=== PATIENT | male | born 1955 | race Caucasian/White ===

== ENCOUNTER → 2024-11-28 | Outpatient (CLI) | payer MEDICARE, BC, SELFPAY ==
[2024-11-28 14:29] LABS: Basophils # (Auto) 0.1 Thou/mm3 (0.0-0.2); Basophils % (Auto) 1 % (0-2.5); Eosinophils # (Auto) 0.5 Thou/mm3 (0.0-0.5); Eosinophils % (Auto) 5 % (0-10); Hematocrit 43.8 % (41.0-53.0); Hemoglobin 15.3 g/dL (13.5-16.0); Immature Granulocytes % (Auto) 0 % (0-0); Immature Granulocytes Auto 0.02 Thou/mm3 (0.00-0.00); Lymphocytes # (Auto) 1.5 Thou/mm3 (1.0-4.8); Lymphocytes % (Auto) 14 % (10-50); Mean Corpuscular HGB Conc 34.9 g/dl (31.0-37.0); Mean Corpuscular Hemoglobin 30.4 pg (25.0-35.0); Mean Corpuscular Volume 87 fL (80-100); Monocytes # (Auto) 0.8 Thou/mm3 (0.0-0.8); Monocytes % (Auto) 8 % (0-12); Neutrophils # (Auto) 7.6 Thou/mm3 (1.8-7.7); Neutrophils % (Auto) 73 % (37-80); Nucleated Red Blood Cell % 0 /100 WBC (0); Platelet Count 215 Thou/mm3 (140-440); RDW Standard Deviation 39.1 fL (35.1-43.9); Red Blood Count 5.04 Miln/mm3 (4.50-5.90); White Blood Count 10.5 Thou/mm3 (3.8-10.6)
[2024-11-28 14:43] LABS: Sed Rate (ESR) 4 mm/hr (0-20)
[2024-11-28 15:11] LABS: Alanine Aminotransferase 18 U/L (10-49); Albumin, Serum 4.2 gm/dL (3.4-4.8); Alkaline Phosphatase 109 U/L (46-116); Anion Gap 7 (7-16); Aspartate Amino Transferase 17 U/L (0-34); BUN/Creatinine Ratio 14 Ratio (12-20); Bilirubin,Direct 0.4 mg/dL (0.0-0.3); Bilirubin,Total 1.5 mg/dL (0.3-1.2); Blood Urea Nitrogen 18 mg/dL (9-23); C-Reactive Protein 3.1 mg/dL (0.0-0.9); Calcium 9.5 mg/dL (8.3-10.6); Carbon Dioxide 30.2 mMol/L (20.0-31.0); Chloride 106 mMol/L (98-107); Creatinine (Component) 1.3 mg/dL (0.6-1.3); Glucose 80 mg/dL (74-106); Osmolality,Calculated 285 (275-295); Potassium 4.6 mMol/L (3.4-5.1); Sodium 143 mMol/L (136-145); Total Protein 6.8 gm/dL (5.7-8.2); eGFR 59 See Note
[2024-11-29 14:00] LABS: Cocci Serology, IgM Negative (Negative)
[2024-11-30 14:35] LABS: Cocci Serology, IgG Positive (Negative)
[2024-11-30 14:36] LABS: Cocid Sro, CF/ID (UCD) NO CHG* See Sep Rpt
== END | disposition home or self-care (01) ==
LOC: COPL 13:56
PROVIDERS: PCP Family Medicine; Referring Provider Internal Medicine; Visit Provider Internal Medicine
DX: B38.2 Pulmonary coccidioidomycosis, unspecified (principal); R91.1 Solitary pulmonary nodule
CPT/HCPCS: 36415; 80048; 80076; 85025; 85652; 86140; 86331; 86635

== ENCOUNTER 2024-12-09 07:52 | Emergency (ER) | payer MEDICARE, BC, SELFPAY ==
[2024-12-09 07:54] VITALS: PULSE 98
--- NOTE | 2024-12-09 07:54 | EKG_ITS ---
[facility] Test Date: 2024-12-09 Pat Name: LYNDA CHAMORRO Department: Room: - Gender: Male Addiction Therapist: : [id number] Requested By: Carissa Rodriguez Order Number: [id number] Reading MD: Carissa Rodriguez Measurements Intervals [place] Rate: 90 P: 66 ME: 140 QRS: 33 QRSD: 94 T: 62 QT: 337 QTc: 413 Interpretive Statements SINUS RHYTHM Compared to ECG 11/30/2023 16:37:36 No significant changes /store/S0/[id number]/[id number].pdf
--- NOTE | 2024-12-09 07:54 | XR_ITS ---
Examination: AP chest single view TECHNIQUE: Upright chest single view Exam date and time: December 09, 2024 0919 hours Comparison November 30, 2023 INDICATIONS: Shortness of breath chest pain today FINDINGS: Normal heart size Accentuation basilar bronchovascular markings No current lobar pneumonia or pulmonary edema IMPRESSION: Basilar bronchitis pattern
--- NOTE | 2024-12-09 08:09 | EDNOTE_ITS ---
ED General RME/HPI General Chief complaint: Shortness of Breath/Dyspnea Stated complaint: SHORTHNESS OF BREATH Time Seen by Provider: 12/09/24 07:54 Arrival date/time: 12/09/24 07:52 RME / HPI RME / HPI narrative: DR. JEAN MAIN ED EVALUATION: 69 year old male presents to the Emergency Department with complaint of shortness of breath onset today. Symptoms are mild to moderate. PMHx: He had tonsillectomy during childhood. He had right knee surgery in the past. 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 Allergies: CODEINE Family history: His grandfather had colon cancer. Related Data Home Medications ?Medication ?Instructions ?Recorded ?Confirmed amlodipine 10 mg tablet 5 mg PO DAILY 11/28/23 11/28/23 losartan 50 mg tablet 50 mg PO DAILY 11/28/23 11/28/23 Previous Rx's ?Medication ?Instructions ?Recorded fluconazole 200 mg tablet 400 mg (2 x 200 mg) PO QDAY 1 12/02/23 month #60 tabs albuterol sulfate 90 mcg/actuation 1 inh inhalation QID PRN shortness 12/09/24 aerosol inhaler of breath or wheezing #8.5 grams Allergies Allergy/AdvReac Type Severity Reaction Status Date / Time codeine Allergy Severe THROAT Verified 11/28/23 20:17 SUKH BENAVIDES Review of Systems Review of Systems Systems Reviewed: All systems reviewed, normal except as documented Narrative Review of Systems: GEN: No fever, no chills, no weight loss EYES: No discharge, no visual changes, no pain HEENT: No ear pain, no congestion, no sore throat PULM: + shortness of breath, no cough, no congestion CV: No chest pain, no dyspnea on exertion, no palpitations GI: No nausea, no vomiting, no diarrhea, no pain, no constipation : No frequency, no urgency and no dysuria MUSC/SKEL: No joint pain, no back pain SKIN: No rash PSYCH: No hallucinations, no depression HEME/LYMPH: No easy bleeding or bruising tendencies NEURO: No weakness, no headache Past Medical History Past Medical History NEUROLOGIC: Negative Neurological Disorders or Seizures CARDIAC: Positive Hypertension; Negative Cardiac Disorders, Hypercholesterolemia or Congestive Heart Failure RESPIRATORY: Negative Chronic Obstructive Pulmonary Disease (COPD) or Asthma GASTROINTESTINAL: Positive Gastrointestinal Disorders (dysphagia); Negative Hepatitis or Colorectal Cancer GENITOURINARY: Positive Genitourinary Disorders and Kidney Stones (x1- stent placed for 30 days.); Negative Renal Disease or Prostate Cancer REPRODUCTIVE: Negative Breast Cancer or Testicular Cancer MUSCULOSKELETAL: Negative Musculoskeletal Disorders, Bone Cancer, Arthritis, Gout or Fractures ENT: Negative Cataracts ENDOCRINE: Negative Endocrine Disorders, Diabetes Mellitus Type 1 or Diabetes Mellitus Type 2 HEMATOLOGIC: Negative Blood Disorders or Sickle Cell Disease PSYCHO/SOCIAL: Negative Anxiety OTHER HISTORY: Positive Chicken Pox; Negative Autoimmune Disease, Falls, Blood Transfusions, Blood Transfusion Reaction, Anesthesia Reactions, Organ Transplant, MRSA, VRSA, Vancomycin- Resistant Enterococci, Clostridium Difficile, Breast Cancer, Cervical Cancer, Colorectal Cancer, Lung Cancer, Ovarian Cancer, Prostate Cancer or Testicular Cancer Family History FAMILY HISTORY: Negative Family Psychiatric Problems, Family Respiratory Disorders, Family Cardiac Disorders, Family Gastrointestinal Problems, Family Cancer, Family Surgery or Family Anesthesia Reaction Surgical History SURGICAL: Positive Tonsillectomy; Negative Cardiac Surgery, Open Heart Surgery, Coronary Artery Bypass Graft, Valve Replacement, Vascular Surgery, Coronary Stent, Cardiac Catheterization, Pacemaker, Angiogram, Auto Implanted Cardiovert Defib, Carotid Endarterectomy, Endocrine Surgery, Ear Surgery, Tympanostomy Tube, Eye Surgery, Nose Surgery, Oral Surgery, Abdominal Surgery, Nephrectomy, Joint Replacement, Neurologic Surgery, Mastectomy, Vasectomy or Organ Transplant Social History SMOKING STATUS: Never smoker SECOND HAND EXPOSURE: No ED Exam Narrative Physical exam: GENERAL APPEARANCE: alert and oriented x 4, well-developed, well-nourished, no acute distress VITALS: All vitals were reviewed and the pulse ox is 96% on room air, which is normal according to my interpretation. HEENT: Normocephalic, atraumatic; pupils equal, round, reactive to light; EOMI; mucous membranes pink, moist; oropharynx clear NECK: Supple LUNGS: CTABL; no wheezes, no rales, no rhonchi HEART: Regular rate, regular rhythm; normal S1, S2; no murmurs ABDOMEN: non distended; normal BS; soft, no tenderness, no guarding, no rebound; no masses, no organomegaly, no hernia BACK: no CVA tenderness EXTREMITIES: atraumatic; no edema NEUROLOGIC: awake; alert and oriented x4; cranial nerves II-XII grossly intact; no focal sensory or motor deficits PSYCHIATRIC: appropriate mood and affect SKIN: warm, dry, normal color; no rashes Course Quality Measures none Orders Category Date Time Status [employer] NOW Care 12/09/24 07:54 Completed EKG (ED ONLY) *Do not use* NOW Care 12/09/24 07:54 Completed EKG (ED Only) Stat Exams 12/09/24 07:54 Draft XR chest 1V portable Stat Exams 12/09/24 07:54 Completed B-Type Natriuretic Peptide Stat Lab 12/09/24 08:20 Completed Blood Culture (Lab) Stat Lab 12/09/24 08:20 Received CBC Stat Lab 12/09/24 08:20 Completed Comprehensive Metabolic Panel Stat Lab 12/09/24 08:20 Completed Lactate (Lactic Acid) Stat Lab 12/09/24 08:20 Completed Lipase Stat Lab 12/09/24 08:20 Completed Magnesium Stat Lab 12/09/24 08:20 Completed Partial Thromboplastin Time Stat Lab 12/09/24 08:20 Completed Procalcitonin Stat Lab 12/09/24 08:20 Completed Prothrombin Time with INR Stat Lab 12/09/24 08:20 Completed Troponin I Stat Lab 12/09/24 08:20 Completed Urinalysis Stat Lab 12/09/24 10:47 Completed Urine Culture Stat Lab 12/09/24 10:47 Received ALBUTEROL RT 0.5ml [Proventil Rt 0.5ml] Med 12/09/24 08:07 Discontinued 10 mg INH X1 ONE Albuterol/Ipratr Rt Anastasiya [Duoneb Rt Anastasiya] Med 12/09/24 11:43 Discontinued 3 ml INH X1 ONE Ipratropium [place] Rt Anastasiya [Atrovent Rt Anastasiya] Med 12/09/24 08:07 Discontinued 0.5 mg INH X1 ONE MethylPREDNISolone.* [SoluMEDROL Inj] Med 12/09/24 08:07 Discontinued 125 mg IVP X1 ONE Sodium Chloride Rt Anastasiya 0.9% [NS Rt Anastasiya 0.9%] Med 12/09/24 08:07 Discontinued 3 ml INH PRN PRN Sodium Chloride Rt Anastasiya 0.9% [NS Rt Anastasiya 0.9%] Med 12/09/24 08:07 Discontinued 3 ml INH PRN PRN Vital Signs Vital signs: Vital Signs Pulse Rate 98 12/09/24 07:54 [facility] Patient data External records reviewed:: EMS form Clinical information provided by:: patient and EMS Social determinants that could affect healthcare access:: none Patient has the following chronic illnesses:: PMHx: He had tonsillectomy during childhood. He had right knee surgery in the past. Allergies: CODEINE Family history: His grandfather had colon cancer. How is presenting disease/condition affected by chronic disease/condition?: u neffected by Evaluation data The following diagnostics were reviewed and interpreted by me:: lab results, radiology exam(s) and EKG tracing(s) (EKG at 0849 hours: sinus rhythm, rate 90, no STEMI,) Lab and/or radiology exams considered but not ordered:: none Interpretation Summary: Procedure(s): XR chest 1V portable Accession Number(s): [id number] cc: Hoang Keller MD; Carissa Jean MD; Jarrell Smith MD~ Examination: AP chest single view TECHNIQUE: Upright chest single view Exam date and time: December 09, 2024 0919 hours Comparison November 30, 2023 INDICATIONS: Shortness of breath chest pain today FINDINGS: Normal heart size Accentuation basilar bronchovascular markings No current lobar pneumonia or pulmonary edema IMPRESSION: Basilar bronchitis pattern Dictated By: Hoang Keller MD Medications Medications considered but not ordered:: none Medication administrations:: Medication Administration History Discontinued Medications Albuterol (Albuterol Rt 2.5 Mg/0.5 Ml Nebu) 10 mg INH X1 ONE Stop: 12/09/24 08:08 Last Admin: 12/09/24 08:18 Dose: 10 mg Documented By: JESSY Albuterol/Ipratropium (Albuterol/Ipratropium (Duoneb) Rt Anastasiya 3 Ml Nebu) 3 ml INH X1 ONE Stop: 12/09/24 11:44 Last Admin: 12/09/24 11:56 Dose: 3 ml Documented By: JESSY Ipratropium [place] (Ipratropium Rt 0.5 Mg/ 2.5 Ml Nebu) 0.5 mg INH X1 ONE Stop: 12/09/24 08:08 Last Admin: 12/09/24 08:18 Dose: 0.5 mg Documented By: JESSY Methylprednisolone Sodium Succinate (Methylprednisolone Sod Succ 62.5 Mg/Ml 2ml Vial) 125 mg IVP X1 ONE Stop: 12/09/24 08:08 Last Admin: 12/09/24 08:26 Dose: 125 mg Documented By: NATALIYA Sodium Chloride (Sodium Chloride Rt Anastasiya 0.9% 3 Ml Nebu) 3 ml INH PRN PRN PRN Reason: SOLN Stop: 01/08/25 08:06 Last Admin: 12/09/24 08:18 Dose: 3 ml Documented By: JESSY Sodium Chloride (Sodium Chloride Rt Anastasiya 0.9% 3 Ml Nebu) 3 ml INH PRN PRN PRN Reason: SOLN Stop: 01/08/25 08:06 see above Consultations Consultation(s) initiated? (list below): No Diagnosis Differential Diagnosis ED Complaint MDM: pneumonia, CHF, PE Most likely diagnosis given after review of the tests above:: Bronchitis Shortness of breath Wheezes Admission Indicated Admission indicated?: not indicated Explain why admission is indicated or not indicated:: Patient has no emergent abnormalities on his studies and can be managed on an outpatient basis. Admission Request Was there a request for admission?: No Disposition Plan Disposition Plan: Discharge Discharge Attestation Discharge Attestation: The patient and all family members were given an opportunity to ask questions and understood the discharge instructions. Discharge instructions specifically effects, indications for sooner follow up or return to the emergency department, and the expected course of current diagnosis. Patient condition: Stable Medical Decision Making Differential Diagnosis Differential Diagnosis: pneumonia, CHF, PE Lab Data 12/09/24 08:20 12/09/24 08:20 Labs: Lab Results 12/09/24 12/09/24 Range/Units 08:20 10:47 WBC 13.8 H (3.8-10.6) Thou/mm3 RBC 6.05 H (4.50-5.90) Miln/mm3 Hgb 18.2 H* (13.5-16.0) g/dL Hct 52.3 (41.0-53.0) % MCV 86 (80-100) fL MCH 30.1 (25.0-35.0) pg MCHC 34.8 (31.0-37.0) g/dl RDW Std Deviation 38.0 (35.1-43.9) fL Plt Count 259 D (140-440) Thou/mm3 Neut % (Auto) 78 (37-80) % Lymph % (Auto) 10 (10-50) % [place] % (Auto) 6 (0-12) % Eos % (Auto) 5 (0-10) % Baso % (Auto) 1 (0-2.5) % Neut # (Auto) 10.8 H (1.8-7.7) Thou/mm3 Lymph # (Auto) 1.3 (1.0-4.8) Thou/mm3 [place] # (Auto) 0.8 (0.0-0.8) Thou/mm3 Eos # (Auto) 0.7 H (0.0-0.5) Thou/mm3 Baso # (Auto) 0.1 (0.0-0.2) Thou/mm3 Immature Gran # (Auto) 0.07 H (0.00-0.00) Thou/mm3 Absolute Nucleated RBC 0.00 (0.00-0.00) Thou/mm3 Immature Gran % 1 H (0-0) % Nucleated RBC % 0 (0) /100 WBC PT 10.9 (9.0-12.2) Seconds INR 1.0 (0.9-1.3) APTT 27.6 (22.0-36.0) Seconds Sodium 140 (136-145) mMol/L Potassium 4.0 (3.4-5.1) mMol/L Chloride 104 (98-107) mMol/L Carbon Dioxide 28.9 (20.0-31.0) mMol/L Anion Gap 7 (7-16) BUN 15 (9-23) mg/dL Creatinine 1.2 (0.6-1.3) mg/dL Estim Creat Clear Calc 58.8 L (>60) mL/min eGFR > 60 (60 - ) See Note BUN/Creatinine Ratio 13 (12-20) Ratio Glucose 96 (74-106) mg/dL Calculated Osmolality 280 (275-295) Lactic Acid 1.5 (0.4-2.0) mMol/L Calcium 9.8 (8.3-10.6) mg/dL Corrected Calcium 9.8 (8.5-10.1) mg/dL Magnesium 1.9 (1.6-2.6) mg/dL Total Bilirubin 2.0 H (0.3-1.2) mg/dL AST 13 (0-34) U/L ALT 12 (10-49) U/L Alkaline Phosphatase 110 (46-116) U/L Troponin I 0.034 (0.0-0.045) ng/mL B-Natriuretic Peptide 29 (0-100) pg/mL Total Protein 8.2 (5.7-8.2) gm/dL Albumin 4.9 H (3.4-4.8) gm/dL Globulin 3.3 (2.3-3.5) gm/dL Albumin/Globulin Ratio 1.5 (1.2-2.2) Lipase 44 (12-53) U/L Procalcitonin 0.10 (0.0-0.49) ng/ml Ur Collection Type Clean Catch Urine Color Yellow (Lt Yel-Yel) Urine Clarity Clear (Clear/Hazy) Urine pH 6.0 (5.0-7.0) Ur Specific [place] 1.028 (1.001-1.035) Urine Protein 2+ A (Neg - Trace) Urine Glucose (UA) Negative (Negative) Urine Ketones 2+ A (Negative) Urine Blood Negative (Negative) Urine Nitrite Negative (Negative) Urine Bilirubin Negative (Negative) Urine Urobilinogen (Auto) Negative (0.0-1.0) mg/dL Ur Leukocyte Esterase Negative (Negative) Urine RBC 9 H (0-3) /hpf Urine WBC 7 H (0-5) /hpf Ur Squamous Epith Cells < 1 (0-5) /hpf Urine Bacteria None (None) Discharge Plan Plan Patient Disposition: HOME (Self Care) Prescriptions/Referrals Prescriptions/Med Rec: New albuterol sulfate 90 mcg/actuation HFA aerosol inhaler 1 inh inhalation QID PRN (Reason: shortness of breath or wheezing) Qty: 8.5 0RF No Action losartan 50 mg tablet 50 mg PO DAILY Patient Comments: TAKE 1 TABLET BY MOUTH EVERY DAY amlodipine 10 mg tablet 5 mg PO DAILY Patient Comments: TAKE 1 TABLET BY MOUTH EVERY DAY fluconazole 200 mg tablet 400 mg PO QDAY 30 Days Qty: 60 2RF Referrals: Jarrell Smith MD [Primary Care Provider] - In 1 week Problem List Clinical Impression: Bronchitis, SOB (shortness of breath), Wheezes Patient/Caregiver Discharge Instructions Education Materials: ED Bronchitis with Wheezing (Adult) Print Language: Chinese Stand Alone Forms: Rashmi Award Info., Patient Portal Info Letter
[2024-12-09 08:10] VITALS: BP 173/91; PULSE 70; PULSE 74; RESP 18; RESP 23; TEMP 37; O2SAT 95; O2SAT 97; BMI 22.9
[2024-12-09 08:18] VITALS: PULSE 79
[2024-12-09] MEDS: SODIUM CHLORIDE RT SOL 0.9% 3 ML NEBU INH (08:18)
[2024-12-09] MEDS: IPRATROPIUM RT 0.5 MG/ 2.5 ML NEBU INH (08:18)
[2024-12-09] MEDS: ALBUTEROL RT 2.5 MG/0.5 ML NEBU 10 MG INH (08:18)
[2024-12-09 08:19] VITALS: PULSE 91; RESP 15; O2SAT 97
[2024-12-09] MEDS: MethylPREDNISolone SOD SUCC 62.5 MG/ML 2ML VIAL 125 MG IVP (08:26)
[2024-12-09 08:45] LABS: Lactate (Lactic Acid) 1.5 mMol/L (0.4-2.0)
[2024-12-09 08:47] LABS: Basophils # (Auto) 0.1 Thou/mm3 (0.0-0.2); Basophils % (Auto) 1 % (0-2.5); Eosinophils # (Auto) 0.7 Thou/mm3 (0.0-0.5); Eosinophils % (Auto) 5 % (0-10); Hematocrit 52.3 % (41.0-53.0); Hemoglobin 18.2 g/dL (13.5-16.0); Immature Granulocytes % (Auto) 1 % (0-0); Immature Granulocytes Auto 0.07 Thou/mm3 (0.00-0.00); Lymphocytes # (Auto) 1.3 Thou/mm3 (1.0-4.8); Lymphocytes % (Auto) 10 % (10-50); Mean Corpuscular HGB Conc 34.8 g/dl (31.0-37.0); Mean Corpuscular Hemoglobin 30.1 pg (25.0-35.0); Mean Corpuscular Volume 86 fL (80-100); Monocytes # (Auto) 0.8 Thou/mm3 (0.0-0.8); Monocytes % (Auto) 6 % (0-12); Neutrophils # (Auto) 10.8 Thou/mm3 (1.8-7.7); Neutrophils % (Auto) 78 % (37-80); Nucleated Red Blood Cell % 0 /100 WBC (0); Platelet Count 259 Thou/mm3 (140-440); Red Blood Count 6.05 Miln/mm3 (4.50-5.90); White Blood Count 13.8 Thou/mm3 (3.8-10.6)
[2024-12-09 09:10] LABS: B-Type Natriuretic Peptide 29 pg/mL (0-100)
[2024-12-09 09:26] LABS: Alanine Aminotransferase 12 U/L (10-49); Albumin, Serum 4.9 gm/dL (3.4-4.8); Albumin/Globulin Ratio 1.5 (1.2-2.2); Alkaline Phosphatase 110 U/L (46-116); Anion Gap 7 (7-16); Aspartate Amino Transferase 13 U/L (0-34); BUN/Creatinine Ratio 13 Ratio (12-20); Blood Urea Nitrogen 15 mg/dL (9-23); Calcium 9.8 mg/dL (8.3-10.6); Calcium (Corrected) 9.8 mg/dL (8.5-10.1); Carbon Dioxide 28.9 mMol/L (20.0-31.0); Chloride 104 mMol/L (98-107); Creatinine (Component) 1.2 mg/dL (0.6-1.3); Estimated Creatinine Clearance 58.8 mL/min (>60); Globulin 3.3 gm/dL (2.3-3.5); Glucose 96 mg/dL (74-106); Lipase 44 U/L (12-53); Magnesium 1.9 mg/dL (1.6-2.6); Osmolality,Calculated 280 (275-295); Sodium 140 mMol/L (136-145); Total Protein 8.2 gm/dL (5.7-8.2); Troponin I 0.034 ng/mL (0.0-0.045); eGFR > 60 See Note
[2024-12-09 10:57] LABS: Partial Thromboplastin Time 27.6 Seconds (22.0-36.0); Prothrombin Time 10.9 Seconds (9.0-12.2)
[2024-12-09 10:58] LABS: Collection Type, Urine Clean Catch
[2024-12-09 11:03] VITALS: BP 141/79; PULSE 85; RESP 22; TEMP 36.8; O2SAT 91
[2024-12-09 11:21] LABS: Bilirubin,Urine Negative (Negative); Blood,Urine Negative (Negative); Clarity,Urine Clear (Clear/Hazy); Color,Urine Yellow (Lt Yel-Yel); Glucose, Urine Negative (Negative); Ketones,Urine 2+ (Negative); Leukocyte Esterase,Urine Negative (Negative); Nitrite,Urine Negative (Negative); Protein,Urine 2+ (Neg - Trace); RBC,Urine 9 /hpf (0-3); Specific Gravity,Urine 1.028 (1.001-1.035); Squamous Epithelial Cell,Urine < 1 /hpf (0-5); Urobilinogen,Urine Negative mg/dL (0.0-1.0); WBC,Urine 7 /hpf (0-5)
[2024-12-09 11:56] VITALS: PULSE 83; RESP 18; O2SAT 96
[2024-12-09] MEDS: ALBUTEROL/IPRATROPIUM (Duoneb) RT SOL 3 ML NEBU INH (11:56)
== END 2024-12-09 13:03 | disposition home or self-care (01) ==
PROVIDERS: Emergency Provider Emergency Medicine; PCP Family Medicine
DX: J40 Bronchitis, not specified as acute or chronic (principal)
CPT/HCPCS: 36415; 71045; 80053; 81001; 83605; 83690; 83735; 83880; 84145; 84484; 85025; 85610; 85730; 87040; 87086; 93005; 94640; 94644; 96374; 99284; A9270; J2919

== ENCOUNTER 2024-12-12 21:13 | Inpatient (IN) | payer MEDICARE, BC, SELFPAY ==
[2024-12-12] VITALS (7 sets, daily range): BP systolic 199–208; BP diastolic 99–109; PULSE 75–88; RESP 20–41; TEMP 36.9; O2SAT 93–97; BMI 30.1
--- NOTE | 2024-12-12 21:28 | XR_ITS ---
Examination: AP chest single view Technique one AP portable upright chest single view Exam date and time: December 12, 2024 11:30 PM Comparison December 09, 2024 Indications: Shortness of breath today. Findings: Normal heart size No pneumonia or pulmonary edema The osseous structures are intact Impression: No pneumonia or pulmonary edema
--- NOTE | 2024-12-12 21:30 | XR_ITS ---
Examination: CTA chest with intravenous contrast 2-D reconstructions 3-D reconstructions, vascular Date and time of exam: December 12, 1999 2510 0 3:00 PM Indications: Coughing chest pain shortness of breath beginning 4 days ago CTDI: vol (mGy) 19.17 DLP: (mGycm) 559 Technique: Multiple axial sections of the thorax have been obtained. 3 mm slice thickness, from below the hemidiaphragms to above the apices of the lungs. Mediastinal and lung density settings have been obtained. 2-D sagittal and coronal reconstructions. 3-D angiographic renderings, 3-D volume renderings, 3D post processing, vascular maximum intensity projections obtained. Contrast administered is 100 cc Isovue-370 intravenous. Low dose protocols were performed. One or more of the following dose reduction techniques were used; automated exposure control, adjustment of the mA and/or KV according to patient size, use of iterative reconstruction technique. Findings: AP dimension ascending thoracic aorta 3.6 cm Pulmonary artery opacification is relatively poor, no gross pulmonary artery emboli Minimal hilar lymphadenopathy Thick-walled cavitary lesion in the left upper lobe with surrounding parenchymal disease, cavitary lesion measuring 31 x 18 mm No focal liver or splenic lesion No gallstones No pancreatic or adrenal mass No hydronephrosis Moderate thoracic spondylosis Impression: Pulmonary artery opacification is relatively poor, no gross pulmonary artery emboli 31 x 18 mm thick-walled cavitary lesion left upper lobe with surrounding parenchymal disease, differential would include infectious processes including active tuberculosis, pulmonary neoplasm not excluded, clinical correlation advised
--- NOTE | 2024-12-12 21:30 | PD.EDADULT ---
ED General RME/HPI General Chief complaint: Shortness of Breath/Dyspnea Stated complaint: SOB Time Seen by Provider: 12/12/24 21:28 Arrival date/time: 12/12/24 21:13 CC: Exertional dyspnea shortness of breath HPI ongoing since yesterday, patient has a history of valley fever was seen here 1 week ago for similar complaint at discharge patient states he plays basketball, and is unable to do it today, states he walks 20 feet and becomes short of breath which is new. Patient denies fever chest pain difficulty breathing headache nausea vomiting or diarrhea. Upon secondary assessment in the room the patient's oxygen saturations are 83% on room air tachypneic tachycardic and diaphoretic. Placed on 4 L his oxygen returned to 92%. Patient was able to speak in full sentences. Last emergency room visit included tube breathing treatments and a chest x-ray. Patient state he is never fully recovered post that visit. Related Data Home Medications ?Medication ?Instructions ?Recorded ?Confirmed amlodipine 10 mg tablet 5 mg PO DAILY 11/28/23 11/28/23 losartan 50 mg tablet 50 mg PO DAILY 11/28/23 11/28/23 Previous Rx's ?Medication ?Instructions ?Recorded fluconazole 200 mg tablet 400 mg (2 x 200 mg) PO QDAY 1 12/02/23 month #60 tabs albuterol sulfate 90 mcg/actuation 1 inh inhalation QID PRN shortness 12/09/24 aerosol inhaler of breath or wheezing #8.5 grams Allergies Allergy/AdvReac Type Severity Reaction Status Date / Time codeine Allergy Severe THROAT Verified 11/28/23 20:17 SUKH BENAVIDES Review of Systems Review of Systems Narrative Review of Systems: GEN: No fever, no chills, no weight loss EYES: No discharge, no visual changes, no pain HEENT: No ear pain, no congestion, no sore throat PULM: + shortness of breath, no cough, no congestion CV: No chest pain, no dyspnea on exertion, no palpitations GI: No nausea, no vomiting, no diarrhea, no pain, no constipation : No frequency, no urgency, no dysuria MUSC/SKEL: No joint pain, no back pain SKIN: No rash PSYCH: No hallucinations, no depression HEME/LYMPH: No easy bleeding or bruising tendencies NEURO: No weakness, no headache Past Medical History Past Medical History NEUROLOGIC: Negative Neurological Disorders or Seizures CARDIAC: Positive Hypertension; Negative Cardiac Disorders, Hypercholesterolemia or Congestive Heart Failure RESPIRATORY: Negative Chronic Obstructive Pulmonary Disease (COPD) or Asthma GASTROINTESTINAL: Positive Gastrointestinal Disorders (dysphagia); Negative Hepatitis or Colorectal Cancer GENITOURINARY: Positive Genitourinary Disorders and Kidney Stones (x1- stent placed for 30 days.); Negative Renal Disease or Prostate Cancer REPRODUCTIVE: Negative Breast Cancer or Testicular Cancer MUSCULOSKELETAL: Negative Musculoskeletal Disorders, Bone Cancer, Arthritis, Gout or Fractures ENT: Negative Cataracts ENDOCRINE: Negative Endocrine Disorders, Diabetes Mellitus Type 1 or Diabetes Mellitus Type 2 HEMATOLOGIC: Negative Blood Disorders or Sickle Cell Disease PSYCHO/SOCIAL: Negative Anxiety OTHER HISTORY: Positive Chicken Pox; Negative Autoimmune Disease, Falls, Blood Transfusions, Blood Transfusion Reaction, Anesthesia Reactions, Organ Transplant, MRSA, VRSA, Vancomycin-Resistant Enterococci, Clostridium Difficile, Breast Cancer, Cervical Cancer, Colorectal Cancer, Lung Cancer, Ovarian Cancer, Prostate Cancer or Testicular Cancer Family History FAMILY HISTORY: Negative Family Psychiatric Problems, Family Respiratory Disorders, Family Cardiac Disorders, Family Gastrointestinal Problems, Family Cancer, Family Surgery or Family Anesthesia Reaction Surgical History SURGICAL: Positive Tonsillectomy; Negative Cardiac Surgery, Open Heart Surgery, Coronary Artery Bypass Graft, Valve Replacement, Vascular Surgery, Coronary Stent, Cardiac Catheterization, Pacemaker, Angiogram, Auto Implanted Cardiovert Defib, Carotid Endarterectomy, Endocrine Surgery, Ear Surgery, Tympanostomy Tube, Eye Surgery, Nose Surgery, Oral Surgery, Abdominal Surgery, Nephrectomy, Joint Replacement, Neurologic Surgery, Mastectomy, Vasectomy or Organ Transplant Social History SMOKING STATUS: Never smoker SECOND HAND EXPOSURE: No ED Exam Narrative Physical exam: [General: Not in any acute distress Head normocephalic HEENT: Within acceptable limits Neck is supple nontender Chest equal chest rise nontender to palpation Respiratory: Tachypneic when exerting, CV: Rate rhythm is regular no murmurs rubs or clicks Abdomen is soft nontender no masses positive bowel sounds all 4 quadrants Back: No CVA tenderness no spinous process tenderness from cervical spine thoracic and lumbar spine Skin: Intact no petechiae rash induration ulceration or crepitus Extremities: Moving all extremity against resistance cap refill less than 2 seconds neurosensory intact. No lower extremity edema Neuro: Awake alert oriented x3 Glascow coma 15 no focal deficits] Course Course Course Narrative: Patient's oxygen saturations decreased to the low 80s on room air became tachypneic tachycardic and diaphoretic on 4 L he would maintain at 92 to 93%, when sitting upright and still, when he began to exert himself oxygen saturations would drop to 88 to 90%. Patient is awake alert oriented. Quality Measures none Orders Category Date Time Status CT Screening NOW Care 12/12/24 21:30 Active EKG (ED ONLY) *Do not use* NOW Care 12/12/24 21:[address] angio chest Stat Exams 12/12/24 21:30 Completed EKG (ED Only) Stat Exams 12/12/24 21:28 Ordered XR chest 1V Stat Exams 12/12/24 21:28 Ordered B-Type Natriuretic Peptide Stat Lab 12/12/24 21:37 Completed CBC Stat Lab 12/12/24 21:37 Completed Comprehensive Metabolic Panel Stat Lab 12/12/24 21:37 Completed Drug Screen,Urine Stat Lab 12/12/24 22:47 Results LDH (Lactate Dehydrogenase) Stat Lab 12/12/24 21:37 Completed Lactic Acid [Lactate (Lactic Acid)] Stat Lab 12/12/24 21:37 Completed Magnesium Stat Lab 12/12/24 21:37 Completed Partial Thromboplastin Time Stat Lab 12/12/24 21:37 Completed Procalcitonin Stat Lab 12/12/24 21:37 Completed Prothrombin Time with INR Stat Lab 12/12/24 21:37 Completed Troponin I Stat Lab 12/12/24 21:37 Completed Urinalysis Stat Lab 12/12/24 22:47 Completed ALBUTEROL RT 0.5ml [Proventil Rt 0.5ml] Med 12/12/24 22:52 Discontinued 5 mg INH X1 ONE ALBUTEROL RT 3ml [Proventil Rt 3ml] Med 12/12/24 22:52 Discontinued 2.5 mg INH X1 ONE ALBUTEROL RT 5 ml [Proventil Rt 5 ml] Med 12/12/24 22:27 Discontinued 10 mg INH X1 ONE Furosemide Inj [Lasix Inj] Med 12/12/24 22:49 Discontinued 40 mg IVP X1 ONE Magnesium Sulfate 1 gm Ivpb [Magnesium Sulfate Ivpb] Med 12/12/24 22:50 Active 1 gm in 100 ml IV X1 Sodium Chloride Rt Anastasiya 0.9% [NS Rt Anastasiya 0.9%] Med 12/12/24 22:52 Active 3 ml INH PRN PRN Vital Signs Vital signs: Vital Signs Temperature 98.4 F 12/12/24 21:15 Pulse Rate 75 12/12/24 21:15 Respiratory Rate 20 12/12/24 21:15 Blood Pressure 208/99 H 12/12/24 21:15 Pulse Oximetry (%) 96 12/12/24 21:15 Oxygen Delivery Method Room Air 12/12/24 21:15 [facility] Patient data External records reviewed:: [facility] previous records and EMS form Clinical information provided by:: patient and EMS Social determinants that could affect healthcare access:: none Patient has the following chronic illnesses:: Hypertension valley fever How is presenting disease/condition affected by chronic disease/condition?: uneffected by Evaluation data The following diagnostics were reviewed and interpreted by me:: lab results, radiology exam(s) and EKG tracing(s) Lab and/or radiology exams considered but not ordered:: EKG performed at 2116 shows ventricular rate of 77 WV interval 134 QRS of 1212 QTc of 411 this is sinus rhythm nonspecific ST segment changes. When compared to an old EKG of 2012 no keep no significant EKG changes. CBC shows a leukocytosis of 12.1 no anemia thrombocytopenia Coags within acceptable limits CMP shows no acute electrolyte imbalances other than a mildly elevated glucose at 114 no renal impairment transaminitis, T. bili of 2.0 Troponin of 0.032 Lactic and Pro-Dong are negative. CT of the chest shows no PE, the patient has a cavitating lesion that is 13 x 13 mm. Otherwise no other acute finding. Interpretation Summary: The patient has had a minor workup 1 week ago when he had similar symptoms but now they seem to be more severe at this time we will do CTA of the chest as the patient has a lesion that is supposedly been drinking according to him and his valley fever doctor in [place] who has been monitoring it. Patient had 3 months of Diflucan. And then it was discontinued secondary to drop in eosinophils. Patient states he was to be put on a new medication for valley fever by his doctor tomorrow. Patient's case discussed with Dr. Brandee Mccloud resident for Dr. North who agrees accept the patient for hypoxemia. Medications Medications considered but not ordered:: None Medication administrations:: Medication Administration History Magnesium Sulfate/Dextrose (Magnesium Sulfate Ivpb) 1 gm in 100 mls @ 100 mls/hr IV X1 ONE Stop: 12/12/24 23:49 Last Admin: 12/12/24 22:56 Dose: 100 mls/hr Documented By: DAVE Sodium Chloride (Sodium Chloride Rt Anastasiya 0.9% 3 Ml Nebu) 3 ml INH PRN PRN PRN Reason: SOLN Stop: 01/11/25 22:51 Last Admin: 12/12/24 22:58 Dose: 3 ml Documented By: ORLANDO Discontinued Medications Albuterol (Albuterol Rt 25 Mg/5 Ml Nebu) 10 mg INH X1 ONE Stop: 12/12/24 22:28 Albuterol (Albuterol Rt 2.5 Mg/0.5 Ml Nebu) 5 mg INH X1 ONE Stop: 12/12/24 22:53 Last Admin: 12/12/24 22:58 Dose: 5 mg Documented By: ORLANDO Albuterol (Albuterol Rt 2.5 Mg/3 Ml Nebu) 2.5 mg INH X1 ONE Stop: 12/12/24 22:53 Furosemide (Furosemide Inj 10 Mg/Ml 4ml Vial) 40 mg IVP X1 ONE Stop: 12/12/24 22:50 Last Admin: 12/12/24 22:55 Dose: 40 mg Documented By: DAVE None Consultations Consultation(s) initiated? (list below): No Diagnosis Differential Diagnosis ED Complaint MDM: PE pneumonia hypoxemia Most likely diagnosis given after review of the tests above:: Hypoxemia Admission Indicated Admission indicated?: indicated Explain why admission is indicated or not indicated:: Requires more medical tract management Admission Request Was there a request for admission?: No Disposition Plan Disposition Plan: Admit Medical Decision Making Differential Diagnosis Differential Diagnosis: PE pneumonia hypoxemia Lab Data 12/12/24 21:37 12/12/24 21:37 Labs: Lab Results 12/12/24 12/12/24 Range/Units 21:37 22:47 WBC 12.1 H (3.8-10.6) Thou/mm3 RBC 5.36 (4.50-5.90) Miln/mm3 Hgb 16.2 H D (13.5-16.0) g/dL Hct 47.2 (41.0-53.0) % MCV 88 (80-100) fL MCH 30.2 (25.0-35.0) pg MCHC 34.3 (31.0-37.0) g/dl RDW Std Deviation 39.5 (35.1-43.9) fL Plt Count 223 D (140-440) Thou/mm3 Neut % (Auto) 68 (37-80) % Lymph % (Auto) 13 (10-50) % [place] % (Auto) 10 (0-12) % Eos % (Auto) 8 (0-10) % Baso % (Auto) 1 (0-2.5) % Neut # (Auto) 8.2 H (1.8-7.7) Thou/mm3 Lymph # (Auto) 1.6 (1.0-4.8) Thou/mm3 [place] # (Auto) 1.2 H (0.0-0.8) Thou/mm3 Eos # (Auto) 1.0 H (0.0-0.5) Thou/mm3 Baso # (Auto) 0.1 (0.0-0.2) Thou/mm3 Immature Gran # (Auto) 0.03 H (0.00-0.00) Thou/mm3 Absolute Nucleated RBC 0.00 (0.00-0.00) Thou/mm3 Immature Gran % 0 (0-0) % Nucleated RBC % 0 (0) /100 WBC PT 11.2 (9.0-12.2) Seconds INR 1.0 (0.9-1.3) APTT 27.3 (22.0-36.0) Seconds Sodium 143 (136-145) mMol/L Potassium 4.0 (3.4-5.1) mMol/L Chloride 109 H (98-107) mMol/L Carbon Dioxide 27.3 (20.0-31.0) mMol/L Anion Gap 7 (7-16) BUN 17 (9-23) mg/dL Creatinine 1.3 (0.6-1.3) mg/dL Estim Creat Clear Calc 61.3 (>60) mL/min eGFR 59 L (60 - ) See Note BUN/Creatinine Ratio 13 (12-20) Ratio Glucose 114 H (74-106) mg/dL Calculated Osmolality 287 (275-295) Lactic Acid 0.9 (0.4-2.0) mMol/L Calcium 9.7 (8.3-10.6) mg/dL Corrected Calcium 9.7 (8.5-10.1) mg/dL Magnesium 2.1 (1.6-2.6) mg/dL Total Bilirubin 2.0 H (0.3-1.2) mg/dL AST 22 (0-34) U/L ALT 14 (10-49) U/L Alkaline Phosphatase 87 (46-116) U/L Lactate Dehydrogenase 216 (120-246) U/L Troponin I 0.032 (0.0-0.045) ng/mL B-Natriuretic Peptide 22 (0-100) pg/mL Total Protein 7.2 (5.7-8.2) gm/dL Albumin 4.2 (3.4-4.8) gm/dL Globulin 3.0 (2.3-3.5) gm/dL Albumin/Globulin Ratio 1.4 (1.2-2.2) Procalcitonin 0.08 (0.0-0.49) ng/ml Ur Collection Type Clean Catch Urine Color Lt-Yellow (Lt Yel-Yel) Urine Clarity Clear (Clear/Hazy) Urine pH 6.0 (5.0-7.0) Ur Specific [place] 1.047 H (1.001-1.035) Urine Protein 1+ A (Neg - Trace) Urine Glucose (UA) Negative (Negative) Urine Ketones Trace (Negative) Urine Blood Negative (Negative) Urine Nitrite Negative (Negative) Urine Bilirubin Negative (Negative) Urine Urobilinogen (Auto) Negative (0.0-1.0) mg/dL Ur Leukocyte Esterase Negative (Negative) Urine RBC 2 (0-3) /hpf Urine WBC 1 (0-5) /hpf Ur Squamous Epith Cells 0 (0-5) /hpf Urine Bacteria None (None) Urine Opiates Screen Negative (Negative) Urine Fentanyl Screen Negative (Negative) Ur Barbiturates Screen Negative (Negative) U Amphetamin/Meth Scrn Negative (Negative) U Cocaine Metab Screen Negative (Negative) U Marijuana (THC) Screen Negative (Negative) Discharge Plan Plan Patient Disposition: Other Care w/in Hosp ([facility]) Patient condition on transfer: Stable Prescriptions/Referrals Prescriptions/Med Rec: No Action losartan 50 mg tablet 50 mg PO DAILY Patient Comments: TAKE 1 TABLET BY MOUTH EVERY DAY amlodipine 10 mg tablet 5 mg PO DAILY Patient Comments: TAKE 1 TABLET BY MOUTH EVERY DAY fluconazole 200 mg tablet 400 mg PO QDAY 30 Days Qty: 60 2RF albuterol sulfate 90 mcg/actuation HFA aerosol inhaler 1 inh inhalation QID PRN (Reason: shortness of breath or wheezing) Qty: 8.5 0RF Referrals: Jarrell Smith MD [Primary Care Provider] - In 1 week Problem List Clinical Impression: Hypoxia, SOB (shortness of breath) Patient/Caregiver Discharge Instructions Print Language: Turkish Stand Alone Forms: Rashmi Award Info., Patient Portal Info Letter PA/PHOTOGRAPHER ASSISTANT Supervising Physician PA/PHOTOGRAPHER ASSISTANT Supervising Physician: Adams Mtz ENP
[2024-12-12 21:49] LABS: Basophils # (Auto) 0.1 Thou/mm3 (0.0-0.2); Basophils % (Auto) 1 % (0-2.5); Eosinophils % (Auto) 8 % (0-10); Hematocrit 47.2 % (41.0-53.0); Hemoglobin 16.2 g/dL (13.5-16.0); Immature Granulocytes % (Auto) 0 % (0-0); Immature Granulocytes Auto 0.03 Thou/mm3 (0.00-0.00); Lymphocytes # (Auto) 1.6 Thou/mm3 (1.0-4.8); Lymphocytes % (Auto) 13 % (10-50); Mean Corpuscular HGB Conc 34.3 g/dl (31.0-37.0); Mean Corpuscular Hemoglobin 30.2 pg (25.0-35.0); Mean Corpuscular Volume 88 fL (80-100); Monocytes # (Auto) 1.2 Thou/mm3 (0.0-0.8); Monocytes % (Auto) 10 % (0-12); Neutrophils # (Auto) 8.2 Thou/mm3 (1.8-7.7); Neutrophils % (Auto) 68 % (37-80); Nucleated Red Blood Cell % 0 /100 WBC (0); Platelet Count 223 Thou/mm3 (140-440); RDW Standard Deviation 39.5 fL (35.1-43.9); Red Blood Count 5.36 Miln/mm3 (4.50-5.90); White Blood Count 12.1 Thou/mm3 (3.8-10.6)
[2024-12-12 22:04] LABS: Partial Thromboplastin Time 27.3 Seconds (22.0-36.0); Prothrombin Time 11.2 Seconds (9.0-12.2)
[2024-12-12 22:07] LABS: B-Type Natriuretic Peptide 22 pg/mL (0-100)
[2024-12-12 22:11] LABS: Alanine Aminotransferase 14 U/L (10-49); Albumin, Serum 4.2 gm/dL (3.4-4.8); Albumin/Globulin Ratio 1.4 (1.2-2.2); Alkaline Phosphatase 87 U/L (46-116); Anion Gap 7 (7-16); Aspartate Amino Transferase 22 U/L (0-34); BUN/Creatinine Ratio 13 Ratio (12-20); Blood Urea Nitrogen 17 mg/dL (9-23); Calcium 9.7 mg/dL (8.3-10.6); Calcium (Corrected) 9.7 mg/dL (8.5-10.1); Carbon Dioxide 27.3 mMol/L (20.0-31.0); Chloride 109 mMol/L (98-107); Creatinine (Component) 1.3 mg/dL (0.6-1.3); Estimated Creatinine Clearance 61.3 mL/min (>60); Glucose 114 mg/dL (74-106); Magnesium 2.1 mg/dL (1.6-2.6); Osmolality,Calculated 287 (275-295); Sodium 143 mMol/L (136-145); Total Protein 7.2 gm/dL (5.7-8.2); Troponin I 0.032 ng/mL (0.0-0.045); eGFR 59 See Note
[2024-12-12 22:34] LABS: Lactate (Lactic Acid) 0.9 mMol/L (0.4-2.0)
[2024-12-12 22:51] LABS: Collection Type, Urine Clean Catch; Squamous Epithelial Cell,Urine 0 /hpf (0-5)
[2024-12-12] MEDS: FUROSEMIDE INJ 10 MG/ML 4ML VIAL 40 MG IVP (22:55)
[2024-12-12] MEDS: Magnesium Sulfate 1 gm Ivpb 1 GM/100 ML BAG IV (22:56)
[2024-12-12] MEDS: ALBUTEROL RT 2.5 MG/0.5 ML NEBU 5 MG INH (22:58)
[2024-12-12] MEDS: SODIUM CHLORIDE RT SOL 0.9% 3 ML NEBU INH (22:58)
[2024-12-12 22:59] LABS: Bilirubin,Urine Negative (Negative); Blood,Urine Negative (Negative); Clarity,Urine Clear (Clear/Hazy); Color,Urine Lt-Yellow (Lt Yel-Yel); Glucose, Urine Negative (Negative); Ketones,Urine Trace (Negative); Leukocyte Esterase,Urine Negative (Negative); Nitrite,Urine Negative (Negative); Protein,Urine 1+ (Neg - Trace); RBC,Urine 2 /hpf (0-3); Specific Gravity,Urine 1.047 (1.001-1.035); Urobilinogen,Urine Negative mg/dL (0.0-1.0); WBC,Urine 1 /hpf (0-5)
[2024-12-12 22:59] LABS: LDH (Lactate Dehydrogenase) 216 U/L (120-246); Procalcitonin 0.08 ng/ml (0.0-0.49)
[2024-12-12 23:18] LABS: Amphetamine/Methamp Scrn,U Negative (Negative); Barbiturate Screen,Urine Negative (Negative); Benzoylecgonine Screen, Ur Negative (Negative); Fentanyl Screen,Urine Negative (Negative); Opiate Screen,Urine Negative (Negative); THC Screen,Urine Negative (Negative)
[2024-12-12] MEDS: ALBUTEROL RT 2.5 MG/3 ML NEBU 10 MG (23:25)
[2024-12-12 23:30] LABS: Benzodiazepines Screen,Urine Negative (Negative)
[2024-12-13] VITALS (12 sets, daily range): BP systolic 119–168; BP diastolic 63–101; PULSE 71–92; RESP 17–24; TEMP 36.1–36.9; O2SAT 95–100
--- NOTE | 2024-12-13 01:05 | PD.RESHP ---
Documentation for date of: 12/13/24 [facility] History of Present Illness Chief complaint: Shortness of breath History of present illness: A 69-year-old male with significant past medical history of hypertension, cocci pneumonia in 2023 treated with fluconazole for 3 months presented to the hospital with chief complaints of shortness of breath since 2 weeks. Patient was apparently normal 2 weeks back then developed shortness of breath and cough associated with phlegm which is yellowish in color, visited PCP and was treated with Z-Floyd and steroids. Patient felt normal for 2 days and again developed shortness of breath and cough with sputum following which he came to [facility] on 12/09/2024, got a breathing treatment and was discharged from the ED. Since then patient felt progressively worsening shortness of breath and left noted shortness of breath even on minimal exertion for which patient came to the ED today. Associated with wheezing. Denies fever, night sweats, weight loss, shortness of breath, palpitations, chest pain, lower extremity swelling, recent travel, allergen exposure. ED Course: -Initial vitals were blood pressure 208/99 mmHg, pulse rate 75 bpm, respiratory rate 20/min, SpO2 96% with 4 L oxygen -Labs significant for WBC 12.1, Hb 16.2, BUN 17, creatinine 1.3, BNP 22, procalcitonin 0.08. Urine analysis showed 1 respiratory. Tested negative for urine toxicology. -CTA chest done showed 3.1 x 1.8 cm cavitated lesion in left upper lobe. Chest x-ray did not show any significant infiltrates. -In the ED, patient was given nebulization, ceftriaxone and a dose of 40 Mg IV Lasix. -Patient was admitted for acute hypoxic respiratory failure secondary to possible cocci pneumonia Past medical history: Hypertension, cocci Past surgical history: Tonsillectomy Social history: Remote smoking during teens, denied alcohol, other illicit drug abuse Review of Systems Review of Systems Narrative Review of Systems: Constitutional: No Weight Change, No Fever, No Chills, No Night Sweats, No Fatigue, No Malaise ENT/Mouth: No Hearing Changes, No Ear Pain, Nasal Congestion, No Sinus Pain, No Hoarseness, No sore throat, Rhinorrhea, No Swallowing Difficulty Eyes: No Eye Pain, No Swelling, No Redness, No Foreign Body, No Discharge, No Vision Changes Cardiovascular: No Chest Pain, SOB, No PND, Dyspnea on Exertion, No Orthopnea, No Edema, No Palpitations Respiratory: Cough, Yellowish Sputum, Wheezing, Dyspnea Gastrointestinal: No Nausea, No Vomiting, No Diarrhea, No Constipation, No Pain, No Heartburn, No Anorexia, No Dysphagia, No Hematochezia, No Melena, No Flatulence, No Jaundice Genitourinary: No Dysuria, No Urinary Frequency, No Hematuria, No Urinary Incontinence, No Urgency, No Flank Pain, No Urinary Flow Changes, No Hesitancy Musculoskeletal: No Arthralgias, No Myalgias, No Joint Swelling, No Joint Stiffness, No Back Pain, No Neck Pain, No Injury History Skin: No Skin Lesions, No Pruritis Neuro: No Weakness, No Numbness, No Paresthesias, No Loss of Consciousness, No Syncope, No Dizziness, No Headache, No Coordination Changes, No Recent Falls Exam Vital Signs Temp Pulse Resp BP Pulse Ox O2 Del Method O2 Flow Rate 98.0 F 92 22 H 143/91 H 95 Nasal Cannula 4 12/13/24 00:35 12/13/24 00:35 12/13/24 00:35 12/13/24 00:35 12/13/24 00:35 12/13/24 00:35 12/13/24 00:45 Narrative Exam General: Awake. Tachypneic HEENT: Normocephalic, atraumatic, mucous membranes moist. Heart: Regular rate and rhythm, no murmurs. Lungs: Bilateral diffuse wheeze heard Abdomen: Soft, nondistended, nontender, positive bowel sounds. ?No guarding or rebound tenderness. Neurologic: Alert and oriented x3, no gross neurological deficit, and patient able to move all 4 extremities. Extremities: No edema. Skin: No rash or ecchymoses. Results: Labs 12/12/24 21:37 12/12/24 21:37 Labs: Short CBC 12/12/24 Range/Units 21:37 WBC 12.1 H (3.8-10.6) Thou/mm3 Hgb 16.2 H D (13.5-16.0) g/dL Hct 47.2 (41.0-53.0) % Plt Count 223 D (140-440) Thou/mm3 BMP 12/12/24 21:37 Sodium 143 Potassium 4.0 Chloride 109 H Carbon Dioxide 27.3 BUN 17 Creatinine 1.3 Glucose 114 H Calcium 9.7 Cardiac Enzymes 12/12/24 Range/Units 21:37 Troponin I 0.032 (0.0-0.045) ng/mL Liver Function 12/12/24 Range/Units 21:37 Total Bilirubin 2.0 H (0.3-1.2) mg/dL AST 22 (0-34) U/L ALT 14 (10-49) U/L Alkaline Phosphatase 87 (46-116) U/L Albumin 4.2 (3.4-4.8) gm/dL Urine 12/12/24 Range/Units 22:47 Urine Color Lt-Yellow (Lt Yel-Yel) Urine Clarity Clear (Clear/Hazy) Urine pH 6.0 (5.0-7.0) Ur Specific [place] 1.047 H (1.001-1.035) Urine Protein 1+ A (Neg - Trace) Urine Glucose (UA) Negative (Negative) Quality Measures Quality Measures none Advance care planning discussed with:: patient Medications Home Medications and Allergies Home Medications ?Medication ?Instructions ?Recorded ?Confirmed ?Type amlodipine 10 mg tablet 5 mg PO DAILY 11/28/23 11/28/23 History losartan 50 mg tablet 50 mg PO DAILY 11/28/23 11/28/23 History Allergies Allergy/AdvReac Type Severity Reaction Status Date / Time codeine Allergy Severe THROAT Verified 11/28/23 20:17 SWELLS, RASH Visit Medications Acetaminophen (Acetaminophen 325 Mg Tablet) 650 mg PO Q6H PRN PRN Reason: Fever >101.5 Stop: 01/12/25 00:28 Albuterol/Ipratropium (Albuterol/Ipratropium (Duoneb) Rt Anastasiya 3 Ml Nebu) 3 ml INH Q4HRRT PRN PRN Reason: SOB or wheeze Stop: 01/12/25 02:59 Enoxaparin Sodium (Enoxaparin Sod Inj 40 Mg/0.4 Ml Syringe) 40 mg SC QDAY GRAYSON Stop: 12/27/24 08:59 Fluconazole (Fluconazole 100 Mg Tablet) 400 mg PO QDAY GRAYSON Stop: 12/20/24 08:59 Ceftriaxone Sodium/Dextrose (Rocephin/D5w 1gm Iv Premix) 50 mls @ 100 mls/hr IV QDAY GRAYSON Stop: 12/20/24 00:46 Ceftriaxone Sodium/Dextrose (Rocephin/D5w 1gm Iv Premix) 50 mls @ 100 mls/hr IV X1 ONE Stop: 12/13/24 01:29 Magnesium Hydroxide (Milk Of Magnesia Susp 30 Ml Udc) 30 ml PO QDAY PRN; Protocol PRN Reason: CONSTIPATION Stop: 01/12/25 00:28 Ondansetron HCl (Ondansetron Inj 2 Mg/Ml Inj 2 Ml) 4 mg IV Q6H PRN; Protocol PRN Reason: NAUSEA OR VOMITING Stop: 01/12/25 00:28 Sodium Chloride (Sodium Chloride Rt Anastasiya 0.9% 3 Ml Nebu) 3 ml INH PRN PRN PRN Reason: SOLN Stop: 01/11/25 22:51 Last Admin: 12/12/24 22:58 Dose: 3 ml Discontinued Medications Albuterol (Albuterol Rt 25 Mg/5 Ml Nebu) 10 mg INH X1 ONE Stop: 12/12/24 22:28 Albuterol (Albuterol Rt 2.5 Mg/0.5 Ml Nebu) 5 mg INH X1 ONE Stop: 12/12/24 22:53 Last Admin: 12/12/24 22:58 Dose: 5 mg Albuterol (Albuterol Rt 2.5 Mg/3 Ml Nebu) 2.5 mg INH X1 ONE Stop: 12/12/24 22:53 Fluconazole (Fluconazole 100 Mg Tablet) 200 mg PO QDAY GRAYSON Stop: 12/20/24 08:59 Fluconazole (Fluconazole 100 Mg Tablet) 200 mg PO BID GRAYSON Stop: 12/20/24 00:29 Fluconazole (Fluconazole 100 Mg Tablet) 400 mg PO QDAY GRAYSON Stop: 12/20/24 00:29 Fluconazole (Fluconazole 100 Mg Tablet) 400 mg PO X1 ONE Stop: 12/13/24 00:40 Furosemide (Furosemide Inj 10 Mg/Ml 4ml Vial) 40 mg IVP X1 ONE Stop: 12/12/24 22:50 Last Admin: 12/12/24 22:55 Dose: 40 mg Magnesium Sulfate/Dextrose (Magnesium Sulfate Ivpb) 1 gm in 100 mls @ 100 mls/hr IV X1 ONE Stop: 12/12/24 23:49 Last Infusion: 12/13/24 00:28 Dose: Infused Sodium Chloride (Sodium Chloride Rt 10% 15 Ml Nebu) 5 ml INH X1 ONE Stop: 12/13/24 00:45 Sodium Chloride (Sodium Chloride Rt 10% 15 Ml Nebu) 5 ml INH X1 ONE Stop: 12/13/24 00:45 Assessment & Plan Plan A 69-year-old male with significant past medical history of hypertension, cocci pneumonia in 2023 treated with fluconazole for 3 months presented to the hospital with chief complaints of shortness of breath since in 2 weeks and admitted for acute hypoxic respiratory failure secondary to cocci and cavitatory lesion # Acute hypoxic respiratory failure # Secondary to primary pulmonary cocci # To rule out TB # History of cocci pneumonia in 2023 -Patient had history of cocci pneumonia diagnosed in 2023 and treated with fluconazole for 3 months -Admitted to the hospital with complaints of shortness of breath since 2 weeks associated with cough and wheeze -Denies fever, weight loss, night sweats, chest pain, palpitations, lower extremity swelling -Vitals at the time of admission showed blood pressure 208/99 mmHg, pulse rate 75 bpm, respiratory rate 20/min, temperature 98.4 ?F, SpO2 96% with 4 L oxygen -On examination, bilateral diffuse wheeze heard -Labs showed WBC 12.1 -CTA chest showed cavitary lesion of 3.1 x 1.8 cm in left upper lobe, previous CT chest done in 03/2024 also showed cavitary lesion and minimal hilar lymphadenopathy, could be sequelae of cocci -Patient tested positive for IgM and IgG cocci on 11/29/2024 and titers came back as 1:32 from [facility] Plan -Nebulizations as needed -Oxygen as needed -Started on fluconazole 400 Mg p.o. daily [12/12- -started on ceftriaxone 1 g IV daily [12/13-, discontinue after sputum cultures if comes back negative -Incentive spirometry -TB Quantiferon ordered -sputum for AFB and gram stain, culture ordered # Hypertension -Blood pressure at the time of admission is 208/99 mm hg later decreased to 119/82 mm hg without any intervention -medication reconciliation is ordered and resume medications as needed #Erythrocytosis/polycythemia -Hemoglobin at the time of admission is 16.2 -Monitor CBC Hospital Maintenance: Dispo: medtele DVT ppx: lovenox GI ppx: not needed Diet: Regular IV lines: Peripheral Code status: Full Patient plan of care was discussed with the attending physician, Dr.Rifkin Baldo Crowe, PGY1 Attending Provider Attestation/Addendum I have examined the patient, reviewed labs and imaging findings, discussed the case with the resident(s), and reviewed entered orders. I agree with the plan of care as outlined in this note, with these additional summaries/recommendations: Patient is a 69-year-old male with a history of primary hypertension and pulmonary coccidioidomycosis who presented to [facility] emergency department on 12/13/2024 with chief complaint of shortness of breath. Patient was found to have acute hypoxic respiratory failure in the emergency department and thus hospitalist team consulted for continuation of care. Patient seen at bedside. Patient will be admitted for acute hypoxic respiratory failure which is likely multifactorial secondary to pulmonary coccidioidomycosis +/- COPD +/- bacterial pneumonia. Patient started on supplemental oxygen and wean as tolerated. Start fluconazole 400 mg p.o. daily as patient appears to have not received full treatment for previous cocci. [facility] titers from 12/09/2024 showed positive IgG and IgM with complement fixation positive 1:32. Start fluconazole 400 mg p.o. daily. Start scheduled DuoNebs for possible COPD component. We will defer steroids given cavitary lesion seen on CT. Start antibiotics for possible superimposed bacterial infection. CTA chest showed no gross pulmonary artery emboli but did reveal 31X 18 mm thick walled cavitary lesion left upper lobe with surrounding parenchymal disease with differentials including active TB versus pulmonary neoplasm versus cocci. Patient denies night sweats or weight loss but does endorse some blood-tinged sputum. Patient reports he traveled to [place] 10 years ago. Placed on isolation precautions, order quantiferon gold, and AFB x 3. Continue home antihypertensives as tolerated. Repeat hematology and chemistry panel in AM. Dr. North
[2024-12-13] MEDS: FLUCONAZOLE 100 MG TABLET 400 MG PO ×2 (01:18→08:42)
[2024-12-13] MEDS: cefTRIAXone/D5w 1gm IV premix 50 ML IV ×2 (01:18→20:11)
[2024-12-13] MEDS: ALBUTEROL/IPRATROPIUM (Duoneb) RT SOL 3 ML NEBU INH ×3 (02:06→20:48)
[2024-12-13 02:23] LABS: Cult AFB Sendout- Sputum* See Sep Rpt
[2024-12-13 06:05] LABS: Basophils % (Auto) 0 % (0-2.5); Eosinophils % (Auto) 0 % (0-10); Hematocrit 47.7 % (41.0-53.0); Hemoglobin 16.3 g/dL (13.5-16.0); Immature Granulocytes % (Auto) 0 % (0-0); Immature Granulocytes Auto 0.05 Thou/mm3 (0.00-0.00); Lymphocytes # (Auto) 0.5 Thou/mm3 (1.0-4.8); Lymphocytes % (Auto) 4 % (10-50); Mean Corpuscular HGB Conc 34.2 g/dl (31.0-37.0); Mean Corpuscular Hemoglobin 30.7 pg (25.0-35.0); Mean Corpuscular Volume 90 fL (80-100); Monocytes # (Auto) 0.7 Thou/mm3 (0.0-0.8); Monocytes % (Auto) 6 % (0-12); Neutrophils # (Auto) 11.3 Thou/mm3 (1.8-7.7); Neutrophils % (Auto) 89 % (37-80); Nucleated Red Blood Cell % 0 /100 WBC (0); Platelet Count 203 Thou/mm3 (140-440); RDW Standard Deviation 40.6 fL (35.1-43.9); Red Blood Count 5.31 Miln/mm3 (4.50-5.90); White Blood Count 12.7 Thou/mm3 (3.8-10.6)
[2024-12-13 06:14] LABS: Quantiferon-TB* See Sep Rpt
[2024-12-13 06:32] LABS: Alanine Aminotransferase 14 U/L (10-49); Albumin, Serum 4.3 gm/dL (3.4-4.8); Albumin/Globulin Ratio 1.4 (1.2-2.2); Alkaline Phosphatase 88 U/L (46-116); Anion Gap 11 (7-16); Aspartate Amino Transferase 16 U/L (0-34); BUN/Creatinine Ratio 11 Ratio (12-20); Blood Urea Nitrogen 18 mg/dL (9-23); Calcium 9.8 mg/dL (8.3-10.6); Calcium (Corrected) 9.8 mg/dL (8.5-10.1); Carbon Dioxide 28.3 mMol/L (20.0-31.0); Chloride 103 mMol/L (98-107); Creatinine (Component) 1.6 mg/dL (0.6-1.3); Estimated Creatinine Clearance 48.5 mL/min (>60); Globulin 3.1 gm/dL (2.3-3.5); Glucose 150 mg/dL (74-106); Osmolality,Calculated 288 (275-295); Potassium 4.6 mMol/L (3.4-5.1); Sodium 142 mMol/L (136-145); Total Protein 7.4 gm/dL (5.7-8.2); eGFR 46 See Note
[2024-12-13 07:06] LABS: Glucose Estimated Average 108 mg/dL (80-131); Hemoglobin A1C 5.4 % Hgb (4.8-6.0)
[2024-12-13] MEDS: ENOXAPARIN SOD INJ 40 MG/0.4 ML SYRINGE SC (08:42)
[2024-12-13] MEDS: SODIUM CHLORIDE RT 10% 15 ML NEBU 5 ML INH (09:06)
[2024-12-13 09:32] LABS: Cult AFB Sendout- Sputum* See Sep Rpt
[2024-12-13 10:02] LABS: Influenza A Ag Negative; Influenza B Ag Negative
--- NOTE | 2024-12-13 10:10 | PC.SS ---
Initial assessment: This is a 69 year-old male admitted for SOB. SS spoke with patient's son, Stevie Muir. Stevie confirmed demographic information. Stevie was identifies as the patient's alternate medical decision maker. Patient resides at home his . Patient able to complete ADL?s independently, no need for any source of DME. Per Stevie, patient had received home oxygen last year, however unsure if patient is aligned with DME vendor at this time. No preferred DME vendor if new oxygen is needed. Patient's PCP is Dr. Jarrell Smith. Plan is for the patient to return home at the time of discharge. Family to provide transportation on behalf of the patient at the time of discharge. D/c plan: Home Next of kin: son, Stevie Muir
--- NOTE | 2024-12-13 10:15 | PC.SS ---
SS update: patient is on high flow of oxygen.
--- NOTE | 2024-12-13 12:54 | PC.NURSE ---
Request was sent to patients primary care provider Dr. Smith for patient records. Will continue to monitor patient.
[2024-12-13] MEDS: SODIUM CHLORIDE RT 10% 15 ML NEBU INH (16:55)
--- NOTE | 2024-12-13 17:18 | PC.RT ---
last afb sample collected and sent to lab @ [id number]
[2024-12-13 17:26] LABS: Cult AFB Sendout- Sputum* See Sep Rpt
--- NOTE | 2024-12-13 18:26 | PD.RESPRO ---
Documentation for date of: 12/13/24 Senior resident attestation: The patient is a 69-year-old male with a past medical history of hypertension, cocci pneumonia in 2023, completed 3 months of treatment with fluconazole in January 2024, now complaining of shortness of breath since past 2 weeks, recent ER visits, but no resolution of symptoms is noted. Of note patient reported receiving IV steroids with recent healthcare visit, likely leading to flareup of underlying coccidiomycosis. Cavitary lesion on chest imaging, increasing in size from previous imaging, patient had workup for hematological malignancy previously which was negative, reports he was told that elevated eosinophils were secondary to fluconazole, patient follows Dr. Rutherford ID specialist in [place], who started the patient on itraconazole. Patient reports no biopsy of the previous lung mass. Will workup for cavitary lesion including tuberculosis, starting the patient on itraconazole. ? 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 #Acute hypoxic respiratory failure #Pulmonary coccidiomycosis #Tuberculosis rule out #History of hypertension Patient evaluated and examined at the bedside, plan of care discussed with rest of the team including my attending physician, except as noted. Quresh PGY2 Subjective Subjective Interval history: 12/13: Patient is an overnight admit. Patient is seen and examined at bedside this morning. Patient is in isolation for TB rule out as recent imaging showed cavitary lesions. 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 Patient denies any cough chest pain night sweats or recent weight loss, patient denies any recent travels or sick contacts. patient states he was diagnosed with cocci pneumonia last year around November and underwent fluconazole for 3 months and finished the course of fluconazole in January. Patient sees Dr. Rutherford in [place] and requested to update him of his hospitalization. Patient states he came to the ED approximately a week ago for similar symptoms and was discharged with some antibiotics and was given steroid treatment but his symptoms did not improve but actually worsened over the days and prompted him to return to the ED .currently patient is on 4 L of oxygen via nasal cannula and receiving breathing treatments patient denies any shortness of breath he endorses significant improvement of his symptoms. Exam Vital Signs Temp Pulse Resp BP Pulse Ox O2 Del Method O2 Flow Rate 98.4 F 82 19 154/91 H 99 Room Air 4 12/13/24 16:00 12/13/24 16:56 12/13/24 16:56 12/13/24 16:00 12/13/24 16:56 12/13/24 16:00 12/13/24 16:56 Narrative Exam GENERAL: A&Ox3 . Awake, Not in acute distress NEURO: no focal neurological deficits HEENT: Atraumatic, Normocephalic. mucous membranes moist. Eyes open, symmetrical, & clear HEART: Normal Heart Sounds LUNGS: Bilateral wheezing on auscultation ABDOMEN: soft, non-distended, non-tender, bowel sounds heard, no guarding or rebound tenderness SKIN: No Rash or ecchymoses EXTREMITIES: No edema, tenderness, able to move all 4 extremities, pedal pulses palpated Objective Labs 12/14/24 05:10 12/14/24 05:10 Labs: Laboratory Results - last 24 hr 12/12/24 12/12/24 12/13/24 21:37 22:47 05:00 WBC 12.1 H 12.7 H RBC 5.36 5.31 Hgb 16.2 H D 16.3 H Hct 47.2 47.7 MCV 88 90 MCH 30.2 30.7 MCHC 34.3 34.2 RDW Std Deviation 39.5 40.6 Plt Count 223 D 203 Neut % (Auto) 68 89 H Lymph % (Auto) 13 4 L [place] % (Auto) 10 6 Eos % (Auto) 8 0 Baso % (Auto) 1 0 Neut # (Auto) 8.2 H 11.3 H Lymph # (Auto) 1.6 0.5 L [place] # (Auto) 1.2 H 0.7 Eos # (Auto) 1.0 H 0.0 Baso # (Auto) 0.1 0.0 Immature Gran # (Auto) 0.03 H 0.05 H Absolute Nucleated RBC 0.00 0.00 Immature Gran % 0 0 Nucleated RBC % 0 0 PT 11.2 INR 1.0 APTT 27.3 Sodium 143 Potassium 4.0 Chloride 109 H Carbon Dioxide 27.3 Anion Gap 7 BUN 17 Creatinine 1.3 Estim Creat Clear Calc 61.3 eGFR 59 L BUN/Creatinine Ratio [address] Glu mg/dL Hemoglobin A1c Calculated Osmolality 287 Lactic Acid 0.9 Calcium 9.7 Corrected Calcium 9.7 Magnesium 2.1 Total Bilirubin 2.0 H AST 22 ALT 14 Alkaline Phosphatase 87 Lactate Dehydrogenase 216 Troponin I 0.032 B-Natriuretic Peptide 22 Total Protein 7.2 Albumin 4.2 Globulin 3.0 Albumin/Globulin Ratio 1.4 Procalcitonin 0.08 Ur Collection Type Clean Catch Urine Color Lt-Yellow Urine Clarity Clear Urine pH 6.0 Ur Specific [place] 1.047 H Urine Protein 1+ A Urine Glucose (UA) Negative Urine Ketones Trace Urine Blood Negative Urine Nitrite Negative Urine Bilirubin Negative Urine Urobilinogen (Auto) Negative Ur Leukocyte Esterase Negative Urine RBC 2 Urine WBC 1 Ur Squamous Epith Cells 0 Urine Bacteria None Urine Opiates Screen Negative Urine Fentanyl Screen Negative Ur Barbiturates Screen Negative U Amphetamin/Meth Scrn Negative U Benzodiazepines Scrn Negative U Cocaine Metab Screen Negative U Marijuana (THC) Screen Negative Influenza A (Rapid) Influenza B (Rapid) 12/13/24 12/13/24 05:25 08:40 WBC RBC Hgb Hct MCV MCH MCHC RDW Std Deviation Plt Count Neut % (Auto) Lymph % (Auto) [place] % (Auto) Eos % (Auto) Baso % (Auto) Neut # (Auto) Lymph # (Auto) [place] # (Auto) Eos # (Auto) Baso # (Auto) Immature Gran # (Auto) Absolute Nucleated RBC Immature Gran % Nucleated RBC % PT INR APTT Sodium 142 Potassium 4.6 D Chloride 103 Carbon Dioxide 28.3 Anion Gap 11 BUN 18 Creatinine 1.6 H Estim Creat Clear Calc 48.5 L eGFR 46 L BUN/Creatinine Ratio 11 L Glucose [address] Glu mg/dL 108 Hemoglobin A1c 5.4 Calculated Osmolality 288 Lactic Acid Calcium 9.8 Corrected Calcium 9.8 Magnesium Total Bilirubin 2.0 H AST 16 ALT 14 Alkaline Phosphatase 88 Lactate Dehydrogenase Troponin I B-Natriuretic Peptide Total Protein 7.4 Albumin 4.3 Globulin 3.1 Albumin/Globulin Ratio 1.4 Procalcitonin Ur Collection Type Urine Color Urine Clarity Urine pH Ur Specific [place] Urine Protein Urine Glucose (UA) Urine Ketones Urine Blood Urine Nitrite Urine Bilirubin Urine Urobilinogen (Auto) Ur Leukocyte Esterase Urine RBC Urine WBC Ur Squamous Epith Cells Urine Bacteria Urine Opiates Screen Urine Fentanyl Screen Ur Barbiturates Screen U Amphetamin/Meth Scrn U Benzodiazepines Scrn U Cocaine Metab Screen U Marijuana (THC) Screen Influenza A (Rapid) Negative Influenza B (Rapid) Negative Quality Measures Quality Measures none Advance care planning discussed with:: patient Assessment & Plan Assessment Current Active Medications: Generic Name Dose Route Start Last Admin Trade Name Freq PRN Reason Stop Dose Admin Acetaminophen 650 mg 12/13/24 09:26 Acetaminophen 325 Mg Tablet PO 01/12/25 00:28 Q6H PRN Fever >100.3 Albuterol/Ipratropium 3 ml 12/13/24 00:29 12/13/24 09:17 Albuterol/Ipratropium (Duoneb) Rt Anastasiya 3 Ml Nebu INH 01/12/25 02:59 3 ml Q4HRRT PRN Administration SOB or wheeze Enoxaparin Sodium 40 mg 12/13/24 09:00 12/13/24 08:42 Enoxaparin Sod Inj 40 Mg/0.4 Ml Syringe SC 12/27/24 08:59 40 mg QDAY GRAYSON Administration Ceftriaxone Sodium/Dextrose 50 mls @ 100 mls/hr 12/13/24 21:00 Rocephin/D5w 1gm Iv Premix IV 12/20/24 20:59 Q24H GRAYSON Itraconazole 200 mg 12/13/24 21:00 Itraconazole 100 Mg Capsule (Non-Formulary) PO 12/20/24 20:59 BID GRAYSON Magnesium Hydroxide 30 ml 12/13/24 00:29 Milk Of Magnesia Susp 30 Ml Udc PO 01/12/25 00:28 QDAY PRN CONSTIPATION Protocol Ondansetron HCl 4 mg 12/13/24 00:29 Ondansetron Inj 2 Mg/Ml Inj 2 Ml IV 01/12/25 00:28 Q6H PRN NAUSEA OR VOMITING Protocol Sodium Chloride 3 ml 12/12/24 22:52 12/12/24 22:58 Sodium Chloride Rt Anastasiya 0.9% 3 Ml Nebu INH 01/11/25 22:51 3 ml PRN PRN Administration SOLN Sodium Chloride 15 ml 12/13/24 16:47 12/13/24 16:55 Sodium Chloride Rt 10% 15 Ml Nebu INH 01/12/25 16:46 15 ml PRN PRN Administration SPUTUM INDUCTION Plan A 69-year-old male with significant past medical history of hypertension, cocci pneumonia in 2023 treated with fluconazole for 3 months presented to the hospital with chief complaints of shortness of breath since in 2 weeks and admitted for acute hypoxic respiratory failure secondary to cocci and cavitatory lesion # Acute hypoxic respiratory failure # Secondary to primary pulmonary cocci # To rule out TB # History of cocci pneumonia in 2023 -Patient had history of cocci pneumonia diagnosed in 2023 and treated with fluconazole for 3 months -Admitted to the hospital with complaints of shortness of breath since 2 weeks associated with cough and wheeze -Denies fever, weight loss, night sweats, chest pain, palpitations, lower extremity swelling -Vitals at the time of admission showed blood pressure 208/99 mmHg, pulse rate 75 bpm, respiratory rate 20/min, temperature 98.4 ?F, SpO2 96% with 4 L oxygen -On examination, bilateral diffuse wheeze heard -Labs showed WBC 12.1 -CTA chest showed cavitary lesion of 3.1 x 1.8 cm in left upper lobe, previous CT chest done in 03/2024 also showed cavitary lesion and minimal hilar lymphadenopathy, could be sequelae of cocci -Patient tested positive for IgM and IgG cocci on 11/29/2024 and titers came back as 1:32 from [facility] Plan -Nebulizations as needed -Oxygen as needed -Started on fluconazole 400 Mg p.o. daily [12/12- -started on ceftriaxone 1 g IV daily [12/13-, discontinue after sputum cultures if comes back negative -Incentive spirometry -Aspergillus antigen ordered -TB Quantiferon ordered -sputum for AFB and gram stain, culture ordered # Hypertension -Blood pressure at the time of admission is 208/99 mm hg later decreased to 119/82 mm hg without any intervention -medication reconciliation is ordered and resume medications as needed #Erythrocytosis/polycythemia -Hemoglobin at the time of admission is 16.2 -Monitor CBC Hospital Maintenance: Dispo: medtele DVT ppx: lovenox GI ppx: not needed Diet: Regular IV lines: Peripheral Code status: Full Assessment and plan discussed with my senior resident Dr. Monique & attending physician Dr. Jodi Crespo (PGY-1)- Internal medicine resident Attending Provider Attestation/Addendum I, Vida Zapata DO, attest that I was physically present for the chicas portions of the service and evaluated the patient with the resident and I reviewed and discussed the case with the resident and agree with the resident's findings and plans of care as documented above Patient seen and eval this a.m. Patient has been following infectious disease outpatient with Dr. Lyle Rutherford in [place]. Patient had been on fluconazole for valley fever. However, per conversation between PGY1 and Dr. Rutherford, patient developed neutropenia while on fluconazole. Patient appears to have worsening symptoms after he had received steroids outpatient for pneumonia. He also received steroids in the ED 2 days prior. Suspect current symptoms to be worsening of valley fever. Dr. Rutherford recommends to start patient on itraconazole due to history of neutropenia. He is currently under isolation for TB due to cavitary lesion found. Will continue to collect AFBs to rule out TB.
[2024-12-13] MEDS: ITRACONAZOLE 100 MG 200 MG PO (20:11)
[2024-12-13] MEDS: SALINE NASAL 45 ML BTL 1 SPRAY NASAL (22:43)
[2024-12-14] VITALS (10 sets, daily range): BP systolic 106–162; BP diastolic 52–95; PULSE 69–87; RESP 14–24; TEMP 36.1–36.9; O2SAT 93–99
--- NOTE | 2024-12-14 00:55 | PC.NURSE ---
Dr. Crowe notified regarding sputum gram stain results.
[2024-12-14 06:21] LABS: Basophils # (Auto) 0.1 Thou/mm3 (0.0-0.2); Basophils % (Auto) 1 % (0-2.5); Eosinophils # (Auto) 1.2 Thou/mm3 (0.0-0.5); Eosinophils % (Auto) 11 % (0-10); Hematocrit 46.8 % (41.0-53.0); Hemoglobin 15.9 g/dL (13.5-16.0); Immature Granulocytes % (Auto) 0 % (0-0); Immature Granulocytes Auto 0.03 Thou/mm3 (0.00-0.00); Lymphocytes # (Auto) 1.7 Thou/mm3 (1.0-4.8); Lymphocytes % (Auto) 15 % (10-50); Mean Corpuscular Hemoglobin 30.6 pg (25.0-35.0); Mean Corpuscular Volume 90 fL (80-100); Monocytes # (Auto) 1.2 Thou/mm3 (0.0-0.8); Monocytes % (Auto) 10 % (0-12); Neutrophils % (Auto) 63 % (37-80); Nucleated Red Blood Cell % 0 /100 WBC (0); Platelet Count 186 Thou/mm3 (140-440); RDW Standard Deviation 40.6 fL (35.1-43.9); White Blood Count 11.1 Thou/mm3 (3.8-10.6)
[2024-12-14] MEDS: SALINE NASAL 45 ML BTL 1 SPRAY NASAL (06:21)
[2024-12-14 06:38] LABS: Alanine Aminotransferase 13 U/L (10-49); Albumin/Globulin Ratio 1.4 (1.2-2.2); Alkaline Phosphatase 82 U/L (46-116); Anion Gap 6 (7-16); Aspartate Amino Transferase 16 U/L (0-34); BUN/Creatinine Ratio 13 Ratio (12-20); Bilirubin,Total 2.5 mg/dL (0.3-1.2); Blood Urea Nitrogen 19 mg/dL (9-23); Calcium 9.6 mg/dL (8.3-10.6); Calcium (Corrected) 9.6 mg/dL (8.5-10.1); Carbon Dioxide 30.7 mMol/L (20.0-31.0); Chloride 104 mMol/L (98-107); Creatinine (Component) 1.5 mg/dL (0.6-1.3); Estimated Creatinine Clearance 51.7 mL/min (>60); Globulin 2.9 gm/dL (2.3-3.5); Glucose 88 mg/dL (74-106); Osmolality,Calculated 282 (275-295); Potassium 4.6 mMol/L (3.4-5.1); Sodium 141 mMol/L (136-145); Total Protein 6.9 gm/dL (5.7-8.2); eGFR 50 See Note
[2024-12-14] MEDS: ENOXAPARIN SOD INJ 40 MG/0.4 ML SYRINGE SC (08:35)
[2024-12-14] MEDS: ITRACONAZOLE 100 MG 200 MG PO ×2 (08:35→21:11)
[2024-12-14] MEDS: SODIUM CHLORIDE 0.9% 1000 ML 1,000 ML 75 ML IV (08:36)
[2024-12-14] MEDS: amLODIPine BESYLATE 5 MG TABLET 10 MG PO (08:36)
--- NOTE | 2024-12-14 14:22 | PC.SS ---
Rounding note: patient is pending TB rule out.
[2024-12-14] MEDS: ALBUTEROL/IPRATROPIUM (Duoneb) RT SOL 3 ML NEBU INH (15:15)
--- NOTE | 2024-12-14 16:43 | PD.RESPRO ---
Documentation for date of: 12/14/24 Senior resident attestation: The patient is a 69-year-old male with a past medical history of hypertension, cocci pneumonia in 2023, completed 3 months of treatment with fluconazole in January 2024, now complaining of shortness of breath since past 2 weeks, recent ER visits, but no resolution of symptoms is noted. Of note patient reported receiving IV steroids with recent healthcare visit, likely leading to flareup of underlying coccidiomycosis. Cavitary lesion on chest imaging, increasing in size from previous imaging, patient had workup for hematological malignancy previously which was negative, reports he was told that elevated eosinophils were secondary to fluconazole, patient follows Dr. Rutherford ID specialist in [place], who started the patient on itraconazole. Patient reports no biopsy of the previous lung mass. Will workup for cavitary lesion including tuberculosis, starting the patient on itraconazole. ? 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 #Acute hypoxic respiratory failure #Pulmonary coccidiomycosis #Tuberculosis rule out #History of hypertension Patient evaluated and examined at the bedside, plan of care discussed with rest of the team including my attending physician, except as noted. Quresh PGY2 Subjective Subjective Interval history: 12/14: No acute overnight events. Patient seen and examined at bedside. Patient states he feels much better denies any shortness of breath or chest pain. Patient denies abdominal pain. Per patient's request, call Dr. Rutherford patient's ID who recommended patient to be switch from fluconazole to itraconazole as previously patient had developed neutropenia after starting fluconazole. Patient is informed his medication is changed to itraconazole. Patient has no other complaints. Exam Vital Signs Temp Pulse Resp BP Pulse Ox O2 Del Method O2 Flow Rate 97.0 F 85 24 H 123/52 L 98 Nasal Cannula 2 12/14/24 16:00 12/14/24 16:00 12/14/24 16:00 12/14/24 16:00 12/14/24 16:00 12/14/24 16:00 12/14/24 15:15 FiO2 2 12/14/24 16:00 Narrative Exam GENERAL: A&Ox3 . Awake, Not in acute distress NEURO: no focal neurological deficits HEENT: Atraumatic, Normocephalic. mucous membranes moist. Eyes open, symmetrical, & clear HEART: Normal Heart Sounds LUNGS: Clear on auscultation ABDOMEN: soft, non-distended, non-tender, bowel sounds heard, no guarding or rebound tenderness SKIN: No Rash or ecchymoses EXTREMITIES: No edema, no tenderness, able to move all 4 extremities, pedal pulses palpated Objective Labs 12/15/24 05:21 12/15/24 05:21 Labs: Laboratory Results - last 24 hr 12/14/24 05:10 WBC 11.1 H RBC 5.20 Hgb 15.9 Hct 46.8 MCV 90 MCH 30.6 MCHC 34.0 RDW Std Deviation 40.6 Plt Count 186 Neut % (Auto) 63 Lymph % (Auto) 15 [place] % (Auto) 10 Eos % (Auto) 11 H Baso % (Auto) 1 Neut # (Auto) 7.0 Lymph # (Auto) 1.7 [place] # (Auto) 1.2 H Eos # (Auto) 1.2 H Baso # (Auto) 0.1 Immature Gran # (Auto) 0.03 H Absolute Nucleated RBC 0.00 Immature Gran % 0 Nucleated RBC % 0 Sodium 141 Potassium 4.6 Chloride 104 Carbon Dioxide 30.7 Anion Gap 6 L BUN 19 Creatinine 1.5 H Estim Creat Clear Calc 51.7 L eGFR 50 L BUN/Creatinine Ratio 13 Glucose 88 D Calculated Osmolality 282 Calcium 9.6 Corrected Calcium 9.6 Total Bilirubin 2.5 H D AST 16 ALT 13 Alkaline Phosphatase 82 Total Protein 6.9 Albumin 4.0 Globulin 2.9 Albumin/Globulin Ratio 1.4 Quality Measures Quality Measures none Advance care planning discussed with:: patient Assessment & Plan Assessment Current Active Medications: Generic Name Dose Route Start Last Admin Trade Name Freq PRN Reason Stop Dose Admin Acetaminophen 650 mg 12/13/24 09:26 Acetaminophen 325 Mg Tablet PO 01/12/25 00:28 Q6H PRN Fever >100.3 Albuterol/Ipratropium 3 ml 12/13/24 00:29 12/14/24 15:15 Albuterol/Ipratropium (Duoneb) Rt Anastasiya 3 Ml Nebu INH 01/12/25 02:59 3 ml Q4HRRT PRN Administration SOB or wheeze Amlodipine Besylate 10 mg 12/14/24 09:00 12/14/24 08:36 Amlodipine Besylate 5 Mg Tablet PO 01/13/25 08:59 10 mg QDAY GRAYSON Administration Enoxaparin Sodium 40 mg 12/13/24 09:00 12/14/24 08:35 Enoxaparin Sod Inj 40 Mg/0.4 Ml Syringe SC 12/27/24 08:59 40 mg QDAY GRAYSON Administration Ceftriaxone Sodium/Dextrose 50 mls @ 100 mls/hr 12/13/24 21:00 12/13/24 20:11 Rocephin/D5w 1gm Iv Premix IV 12/20/24 20:59 100 mls/hr Q24H GRAYSON Administration Sodium Chloride 1,000 mls @ 75 mls/hr 12/14/24 08:03 12/14/24 08:36 Ns IV 12/14/24 21:22 75 mls/hr .[id number] GRAYSON Administration Itraconazole 200 mg 12/13/24 21:00 12/14/24 08:35 Itraconazole 100 Mg Capsule (Non-Formulary) PO 12/20/24 20:59 200 mg BID GRAYSON Administration Magnesium Hydroxide 30 ml 12/13/24 00:29 Milk Of Magnesia Susp 30 Ml Udc PO 01/12/25 00:28 QDAY PRN CONSTIPATION Protocol Ondansetron HCl 4 mg 12/13/24 00:29 Ondansetron Inj 2 Mg/Ml Inj 2 Ml IV 01/12/25 00:28 Q6H PRN NAUSEA OR VOMITING Protocol Sodium Chloride 3 ml 12/12/24 22:52 12/12/24 22:58 Sodium Chloride Rt Anastasiya 0.9% 3 Ml Nebu INH 01/11/25 22:51 3 ml PRN PRN Administration SOLN Sodium Chloride 15 ml 12/13/24 16:47 12/13/24 16:55 Sodium Chloride Rt 10% 15 Ml Nebu INH 01/12/25 16:46 15 ml PRN PRN Administration SPUTUM INDUCTION Sodium Chloride 1 spray 12/13/24 22:16 12/14/24 06:21 Saline Nasal 45 Ml Btl NASAL 01/12/25 22:15 45 ml PRN PRN Administration CONGESTION Plan A 69-year-old male with significant past medical history of hypertension, cocci pneumonia in 2023 treated with fluconazole for 3 months presented to the hospital with chief complaints of shortness of breath since in 2 weeks and admitted for acute hypoxic respiratory failure secondary to cocci and cavitatory lesion # Acute hypoxic respiratory failure # Secondary to primary pulmonary cocci # To rule out TB # History of cocci pneumonia in 2023 -Patient had history of cocci pneumonia diagnosed in 2023 and treated with fluconazole for 3 months -Admitted to the hospital with complaints of shortness of breath since 2 weeks associated with cough and wheeze -Denies fever, weight loss, night sweats, chest pain, palpitations, lower extremity swelling -Vitals at the time of admission showed blood pressure 208/99 mmHg, pulse rate 75 bpm, respiratory rate 20/min, temperature 98.4 ?F, SpO2 96% with 4 L oxygen -CTA chest showed cavitary lesion of 3.1 x 1.8 cm in left upper lobe, previous CT chest done in 03/2024 also showed cavitary lesion and minimal hilar lymphadenopathy, could be sequelae of cocci -Patient tested positive for IgM and IgG cocci on 11/29/2024 and titers came back as 1:32 from [facility] Plan -Nebulizations as needed -Oxygen as needed -Started on itraconazole 200 Mg p.o. daily [12/13- -started on ceftriaxone 1 g IV daily [12/13-, discontinue after sputum cultures if comes back negative -Incentive spirometry -Aspergillus antigen ordered -TB Quantiferon ordered -sputum for AFB and gram stain, culture ordered # Hypertension -Patient's home medications include amlodipine 5 Mg p.o. daily and losartan 50 Mg p.o. daily -Patient is started on amlodipine 10 Mg daily #Erythrocytosis/polycythemia -Hemoglobin at the time of admission is 16.2 -Monitor CBC Hospital Maintenance: Dispo: medtele DVT ppx: lovenox GI ppx: not needed Diet: Regular IV lines: Peripheral Code status: Full Assessment and plan discussed with my senior resident Dr. Monique & attending physician Dr. Jodi Crespo (PGY-1)- Internal medicine resident Attending Provider Attestation/Addendum Vida Munoz DO, attest that I was physically present for the chicas portions of the service and evaluated the patient with the resident and I reviewed and discussed the case with the resident and agree with the resident's findings and plans of care as documented above Patient seen and evaluated this AM. He states he is feeling well. He remains on 1-2L/NC. No acute events overnight. Pending AFBs as patient remains on isolation and pending rule out of TB.
[2024-12-14] MEDS: cefTRIAXone/D5w 1gm IV premix 50 ML IV (21:11)
[2024-12-15] VITALS: BP 142/68; PULSE 67; RESP 19; TEMP 37.4; O2SAT 99
[2024-12-15 04:00] VITALS: BP 125/62; PULSE 71; RESP 10; TEMP 36.4; O2SAT 97
[2024-12-15 06:16] LABS: Basophils # (Auto) 0.1 Thou/mm3 (0.0-0.2); Basophils % (Auto) 1 % (0-2.5); Eosinophils # (Auto) 0.8 Thou/mm3 (0.0-0.5); Eosinophils % (Auto) 10 % (0-10); Hematocrit 43.2 % (41.0-53.0); Hemoglobin 14.6 g/dL (13.5-16.0); Immature Granulocytes % (Auto) 0 % (0-0); Immature Granulocytes Auto 0.02 Thou/mm3 (0.00-0.00); Lymphocytes # (Auto) 1.3 Thou/mm3 (1.0-4.8); Lymphocytes % (Auto) 16 % (10-50); Mean Corpuscular HGB Conc 33.8 g/dl (31.0-37.0); Mean Corpuscular Hemoglobin 30.6 pg (25.0-35.0); Mean Corpuscular Volume 91 fL (80-100); Monocytes # (Auto) 1.1 Thou/mm3 (0.0-0.8); Monocytes % (Auto) 13 % (0-12); Neutrophils # (Auto) 5.2 Thou/mm3 (1.8-7.7); Neutrophils % (Auto) 61 % (37-80); Nucleated Red Blood Cell % 0 /100 WBC (0); Platelet Count 179 Thou/mm3 (140-440); RDW Standard Deviation 40.1 fL (35.1-43.9); Red Blood Count 4.77 Miln/mm3 (4.50-5.90); White Blood Count 8.6 Thou/mm3 (3.8-10.6)
[2024-12-15 06:51] LABS: Alanine Aminotransferase 12 U/L (10-49); Albumin, Serum 3.8 gm/dL (3.4-4.8); Albumin/Globulin Ratio 1.6 (1.2-2.2); Alkaline Phosphatase 76 U/L (46-116); Anion Gap 6 (7-16); Aspartate Amino Transferase 15 U/L (0-34); BUN/Creatinine Ratio 16 Ratio (12-20); Bilirubin,Total 1.9 mg/dL (0.3-1.2); Blood Urea Nitrogen 23 mg/dL (9-23); Calcium 9.1 mg/dL (8.3-10.6); Calcium (Corrected) 9.3 mg/dL (8.5-10.1); Carbon Dioxide 29.6 mMol/L (20.0-31.0); Chloride 105 mMol/L (98-107); Creatinine (Component) 1.4 mg/dL (0.6-1.3); Estimated Creatinine Clearance 55.4 mL/min (>60); Globulin 2.4 gm/dL (2.3-3.5); Glucose 88 mg/dL (74-106); Osmolality,Calculated 283 (275-295); Potassium 4.3 mMol/L (3.4-5.1); Sodium 141 mMol/L (136-145); Total Protein 6.2 gm/dL (5.7-8.2); eGFR 54 See Note
[2024-12-15 08:00] VITALS: BP 132/79; PULSE 68; PULSE 75; RESP 14; TEMP 36.1; O2SAT 98
--- NOTE | 2024-12-15 09:19 | PC.SS ---
SS met with bedside nurseArielle to explain pt is requiring O2 testing to order O2 at home.
--- NOTE | 2024-12-15 09:22 | PC.SS ---
OXYGEN Pt is discharged in a chronic stable state and has been treated optimally and has other respiratory needs. Oxygen has been ordered due to Acute hypoxic respiratory failure
[2024-12-15 09:38] VITALS: BP 132/79; PULSE 78
[2024-12-15] MEDS: ENOXAPARIN SOD INJ 40 MG/0.4 ML SYRINGE SC (09:38)
[2024-12-15] MEDS: amLODIPine BESYLATE 5 MG TABLET 10 MG PO (09:38)
[2024-12-15] MEDS: ITRACONAZOLE 100 MG 200 MG PO (09:39)
--- NOTE | 2024-12-15 10:24 | PC.NURSE ---
Patient is on O2 at 4LPM per NC at rest his O2 sat is at 99%. Without oxygen, patient's O2 sat is 96% at rest and 94% while walking.
[2024-12-15 10:57] VITALS: PULSE 70; RESP 16; O2SAT 98
--- NOTE | 2024-12-15 11:34 | PC.SS ---
SS has sent DME order for home O2 using [employer].
--- NOTE | 2024-12-15 11:46 | PC.SS ---
SS received call from Lay at [facility] who explained pt does not qualify for home O2 with the testing that was completed. Physician residents are aware and state pt does not require O2 at home.
[2024-12-15 12:00] VITALS: BP 143/80; PULSE 70; PULSE 71; RESP 16; TEMP 36.2; O2SAT 98
[2024-12-15] MEDS: guaiFENesin/DM TABLET 1 EACH PO (12:37)
--- NOTE | 2024-12-15 17:32 | PD.RESPRO ---
Documentation for date of: 12/15/24 Exam Vital Signs Temp Pulse Resp BP Pulse Ox O2 Del Method O2 Flow Rate 97.1 F 71 16 143/80 H 98 Nasal Cannula 2 12/15/24 12:00 12/15/24 12:00 12/15/24 12:00 12/15/24 12:00 12/15/24 12:00 12/15/24 12:00 12/15/24 12:00 FiO2 2 12/15/24 12:00 Objective Labs 12/15/24 05:21 12/15/24 05:21 Labs: Laboratory Results - last 24 hr 12/13/24 12/13/24 12/13/24 02:10 05:25 08:55 WBC RBC Hgb Hct MCV MCH MCHC RDW Std Deviation Plt Count Neut % (Auto) Lymph % (Auto) [place] % (Auto) Eos % (Auto) Baso % (Auto) Neut # (Auto) Lymph # (Auto) [place] # (Auto) Eos # (Auto) Baso # (Auto) Immature Gran # (Auto) Absolute Nucleated RBC Immature Gran % Nucleated RBC % Sodium Potassium Chloride Carbon Dioxide Anion Gap BUN Creatinine Estim Creat Clear Calc eGFR BUN/Creatinine Ratio Glucose Calculated Osmolality Calcium Corrected Calcium Total Bilirubin AST ALT Alkaline Phosphatase Total Protein Albumin Globulin Albumin/Globulin Ratio Mycobacterial Culture See Sep Rpt See Jul Rpt TB Test (QFT) See Jul Rpt 12/15/24 05:21 WBC 8.6 RBC 4.77 Hgb 14.6 Hct 43.2 MCV 91 MCH 30.6 MCHC 33.8 RDW Std Deviation 40.1 Plt Count 179 Neut % (Auto) 61 Lymph % (Auto) 16 [place] % (Auto) 13 H Eos % (Auto) 10 Baso % (Auto) 1 Neut # (Auto) 5.2 Lymph # (Auto) 1.3 [place] # (Auto) 1.1 H Eos # (Auto) 0.8 H Baso # (Auto) 0.1 Immature Gran # (Auto) 0.02 H Absolute Nucleated RBC 0.00 Immature Gran % 0 Nucleated RBC % 0 Sodium 141 Potassium 4.3 Chloride 105 Carbon Dioxide 29.6 Anion Gap 6 L BUN 23 Creatinine 1.4 H Estim Creat Clear Calc 55.4 L eGFR 54 L BUN/Creatinine Ratio 16 Glucose 88 Calculated Osmolality 283 Calcium 9.1 Corrected Calcium 9.3 Total Bilirubin 1.9 H D AST 15 ALT 12 Alkaline Phosphatase 76 Total Protein 6.2 Albumin 3.8 Globulin 2.4 Albumin/Globulin Ratio 1.6 Mycobacterial Culture TB Test (QFT) Quality Measures Quality Measures none
--- NOTE | 2024-12-15 17:54 | ESDS_ITS ---
<Statement entered by Vida Zapata DO - 12/16/24 15:49> I, Vida Zapata DO, attest that I was physically present for the chicas portions of the service and evaluated the patient with the resident and I reviewed and discussed the case with the resident and agree with the resident's findings and plans of care as documented above Planned Discharge Date 12/15/24 DS: Providers Provider Date of admission: 12/13/24 00:29 Primary care physician: Jarrell Smith MD Admitting Provider: Lexa North MD Attending Provider on Admission: Vida Zapata DO Consults: 12/13/24 03:11 Referral Infection Control Routine Comment: Reason for Infection Control Referral: Patient In Isolation Attending Provider on DC: Soo Crespo MD Discharging Provider: Soo Crespo MD DS: Diagnosis Problem List Completed Was Problem List Reviewed/Reconciled?: Yes Hospital Course Hospital Course Hospital course: Mr. Muir is a 69-year-old male with a past medical history of hypertension, cocci pneumonia in 2023, completed 3 months of treatment with fluconazole in January 2024, presented to [facility] ED on 12/13/2024 complaining of shortness of breath for 2 weeks. Patient is admitted to the hospital for the management of acute hypoxic respiratory failure. patient prior to this visit also had recent ER visit with flulike symptoms patient reported receiving IV steroids with recent healthcare visit, likely leading to flareup of underlying coccidiomycosis. Repeat cocci is positive, chest x-ray revealed No pneumonia or pulmonary edema and chest CT findings included Minimal hilar lymphadenopathy, Thick-walled cavitary lesion in the left upper lobe with surrounding parenchymal, disease, cavitary lesion measuring 31 x 18 mm. Patient had workup for hematological malignancy previously which was negative, reports he was told that elevated eosinophils were secondary to fluconazole, patient follows Dr. Rutherford ID specialist in [place], who started the patient on itraconazole. Patient reports no biopsy of the previous lung mass. Patient is placed in airborne precaution isolation for TB rule out. 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 AFB smear results collected on 12/13/2024 showed no acid fast bacilli in the sputum and cocci IgG and IgM is positive. Conclusion is made that this is likely a flare up of cocci pneumonia in the setting of recent viral infection exacerbated by steroid use. Today patient is hemodynamically and clinically stable patient is saturating at 97% on room air patient, denies shortness of breath or chest pain, the patient is able to tolerate oral diet and remains afebrile. Patient is discharged home. Patient is advised to follow-up outpatient with his infectious disease specialist Dr. Rutherford within a week. Patient is advised if his symptoms worsen or return to promptly return to the ED. Discharge Recommendations Patient is recommended to follow-up with PCP within 1 week to discuss recent hospitalization. Recommend following up with your infectious disease doctor Dr. Lynch within 1 week of discharge from hospital for follow-up of valley fever. Follow-up with CBC due to concern for increasing eosinophil count following treatment with itraconazole. Patient will be sent home with itraconazole 200 mg twice daily after speaking to his infectious disease doctor Dr. Lynch for management of valley fever Negative workup for tuberculosis. Return to emergency room in case of worsening symptoms. Hospitalization Diagnosis # Acute hypoxic respiratory failure # Secondary to primary pulmonary cocci # Tuberculosis-ruled out # History of cocci pneumonia in 2023 # Hypertension #Erythrocytosis/polycythemia Assessment and plan discussed with my attending physician Dr. Jodi Crespo (PGY-1)- Internal medicine resident Time Spent with Patient Time attestation: Total time spent providing and/or coordinating discharge services: >35min Exam Vital Signs Temp Pulse Resp BP Pulse Ox O2 Del Method O2 Flow Rate 97.1 F 71 16 143/80 H 98 Nasal Cannula 2 12/15/24 12:00 12/15/24 12:00 12/15/24 12:00 12/15/24 12:00 12/15/24 12:00 12/15/24 12:00 12/15/24 12:00 FiO2 2 12/15/24 12:00 Narrative Exam GENERAL: A&Ox3 . Awake, Not in acute distress NEURO: no focal neurological deficits HEENT: Atraumatic, Normocephalic. mucous membranes moist. Eyes open, symmetrical, & clear HEART: Normal Heart Sounds LUNGS: Clear on auscultation, no wheezing or crackles ABDOMEN: soft, non-distended, non-tender, bowel sounds heard, no guarding or rebound tenderness SKIN: No Rash or ecchymoses EXTREMITIES: No edema, no tenderness, able to move all 4 extremities, pedal pulses palpated Discharge Plan Plan Patient Disposition: HOME (Self Care) Patient condition on transfer: Stable Care Plan Goals: Patient is recommended to follow-up with PCP within 1 week to discuss recent hospitalization, also recommend following up with your infectious disease doctor Dr. Lynch within 1 week of discharge from hospital for follow-up of valley f ever. Follow-up with CBC due to concern for increasing eosinophil count following treatment with itraconazole. Patient will be sent home with itraconazole 200 mg twice daily after speaking to his infectious disease doctor Dr. Lynch for management of valley fever Negative workup for tuberculosis. Return to emergency room in case of worsening symptoms. Prescriptions/Referrals Prescriptions/Med Rec: New itraconazole 100 mg capsule 200 mg PO BID Qty: 120 1RF Rx Instructions: must administer with a meal/food guaifenesin [Mucinex] 600 mg tablet extended release 12hr 600 mg PO Q12H PRN (Reason: congestion) Qty: 10 0RF Continued amlodipine 10 mg tablet 5 mg PO DAILY Patient Comments: TAKE 1 TABLET BY MOUTH EVERY DAY albuterol sulfate 90 mcg/actuation HFA aerosol inhaler 1 inh inhalation QID PRN (Reason: shortness of breath or wheezing) Qty: 8.5 0RF Held losartan 50 mg tablet 50 mg PO DAILY Hold Instructions: Resume on 12/24/24. Patient is recommended to resume medication after follow-up with primary care physician and repeat CMP. Patien t's acute kidney injury is improving and blood pressure has been fairly well- controlled on amlodipine 10 mg p.o. daily Patient Comments: TAKE 1 TABLET BY MOUTH EVERY DAY Discontinued fluconazole 200 mg tablet 400 mg PO QDAY 30 Days Qty: 60 2RF Referrals: Jarrell Smith MD [Primary Care Provider] - Patient/Caregiver Discharge Instructions Other Discharge Activity Instructions:: Patient is recommended to follow-up with Primary Care Provider within 1 week to discuss recent hospitalization, also recommend following up with your infectious disease doctor Dr. Lynch within 1 week of discharge from hospital for follow-up of valley fever. Follow-up with CBC due to concern for increasing eosinophil count following treatment with itraconazole. Patient will be sent home with itraconazole 200 mg twice daily after speaking to his infectious disease doctor Dr. Lynch for management of valley fever Negative workup for tuberculosis. Return to emergency room in case of worsening symptoms. Education Materials: ED Shortness of Breath (Dyspnea) Print Language: Citizen Of [place] Stand Alone Forms: Rashmi Award Info., Patient Portal Info Letter Discharge Order Discharge Orders: Discharge (Routine); Ordered 12/15/24 Ordered By: Axel Monique Quality Discharge Quality Measures none
[2024-12-16 17:51] LABS: Index Value <0.50
[2024-12-19 06:43] LABS: Aspergillus Ag, Ser* NOT DETECTED
== END 2024-12-15 15:25 | disposition home or self-care (01) | DRG 178 ==
LOC: SERX 23:22 → SERHOLD 12-13 00:48 → S3SX 12-13 02:50
PROVIDERS: Registered Nurse General Practice; Student in an Organized Health Care Education/Training Program; Admitting Provider Student in an Organized Health Care Education/Training Program; Emergency Provider Emergency Medicine; PCP Family Medicine; Visit Provider Internal Medicine
DX: B38.0 Acute pulmonary coccidioidomycosis (principal); J44.0 Chronic obstructive pulmonary disease with (acute) lower respiratory infection; J44.1 Chronic obstructive pulmonary disease with (acute) exacerbation; I10 Essential (primary) hypertension; R59.0 Localized enlarged lymph nodes; D75.1 Secondary polycythemia; Z87.01 Personal history of pneumonia (recurrent); Z86.2 Personal history of diseases of the blood and blood-forming organs and certain disorders involving the immune mechanism; Z79.899 Other long term (current) drug therapy; Z88.5 Allergy status to narcotic agent
CPT/HCPCS: 36415; 71045; 71275; 80048; 80053; 80307; 81001; 83036; 83605; 83615; 83735; 83880; 84145; 84484; 85025; 85610; 85730; 86171; 86480; 87015; 87116; 87205; 87206; 87305; 87502; 87811; 89220; 93005; 93225; 94640; 94644; 94664; 96365; 96366; 96367; 96375; 99285; A4649; A9270; J0696; J1650; J1940; J3475; J7030; Q9967

== ENCOUNTER 2024-12-18 08:13 | Inpatient (IN) | payer MEDICARE, BC, SELFPAY ==
[2024-12-18] VITALS (15 sets, daily range): BP systolic 151–203; BP diastolic 60–92; PULSE 76–110; RESP 15–88; TEMP 36.6–36.9; O2SAT 95–99; BMI 28.7
--- NOTE | 2024-12-18 08:44 | PC.NURSE ---
Patient presents to ED with c/o of cough x 1 month and SOB that worsened this am. Per patient with hx of Valley fever recent diagnosis. Patient states has had several visits to ED for same issue of SOB. Patient was given x1 breathing tx by EMS and stated only helped a little, noted continued cough and wheezing.
--- NOTE | 2024-12-18 09:48 | EKG_ITS ---
[facility] Test Date: 2024-12-18 Pat Name: LYNDA CHAMORRO Department: Room: - Gender: Male Size Tester: : [id number] Requested By: Brett Bejarano Order Number: [id number] Reading MD: Brett Bejarano Measurements Intervals [place] Rate: 102 P: 60 MI: 152 QRS: 38 QRSD: 102 T: 66 QT: 367 QTc: 479 Interpretive Statements SINUS TACHYCARDIA ABNORMAL RHYTHM ECG Compared to ECG 12/09/2024 08:49:04 Sinus rhythm no longer present /store/S0/[id number]
--- NOTE | 2024-12-18 09:48 | EDNOTE_ITS ---
ED SOB =RME/HPI General Chief Complaint: Shortness of Breath/Dyspnea Stated Complaint: SOB Time Seen by Provider: 12/18/24 08:42 Arrival date/time: 12/18/24 08:13 RME / HPI RME / HPI Narrative: DR. 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 Rutherford in [place] and patient reports that he is not a disseminated cocci patient in today states he is got wheezing short of breath. There is been no fever vomiting diarrhea. No chest pain. Denies any other acute problem at this time. Related Data Home Medications ?Medication ?Instructions ?Recorded ?Confirmed amlodipine 10 mg tablet 5 mg PO DAILY 11/28/23 11/28/23 losartan 50 mg tablet 50 mg PO DAILY 11/28/23 11/28/23 Previous Rx's ?Medication ?Instructions ?Recorded albuterol sulfate 90 mcg/actuation 1 inh inhalation QID PRN shortness 12/09/24 aerosol inhaler of breath or wheezing #8.5 grams guaifenesin 600 mg tablet, 600 mg PO Q12H PRN congestion #10 12/15/24 extended release 12 hr (Mucinex) tabs itraconazole 100 mg capsule 200 mg (2 x 100 mg) PO BID #120 12/15/24 caps Allergies Allergy/AdvReac Type Severity Reaction Status Date / Time codeine Allergy Severe THROAT Verified 11/28/23 20:17 SUKH BENAVIDES Review of Systems Review of Systems Narrative Review of Systems: Review of Systems: Constitutional: DENIES: Fevers,; Eyes: DENIES: Loss of vision, Head/Ear/Nose: DENIES: Loss of hearing. Throat: Denies dysphagia. Cardiovascular: Denies chest pain, Dyspnea or syncope. Respiratory: See HPI Gastrointestinal: DENIES: Rectal bleeding or melena. Genitourinary: DENIES: Dysuria (painful or difficult urination),; Musculoskeletal: DENIES: Arthralgia (pain in a joint),; Skin: DENIES: Rash,; Neurological: DENIES: loss of function or movement,; Psychiatric: DENIES: recent major life stressor, emotional problem, illicit drug use or abuse,; Endocrinology: DENIES: Weight change,; Hematologic/Lymphatic: DENIES: Abnormal bruising. Allergic/Immunologic: DENIES: Urticaria (hives), Past Medical History Past Medical History CARDIAC: Positive Hypertension RESPIRATORY: Positive Respiratory Disorders (VALLEY FEVER) GASTROINTESTINAL: Positive Gastrointestinal Disorders GENITOURINARY: Positive Genitourinary Disorders and Kidney Stones OTHER HISTORY: Positive Chicken Pox Surgical History SURGICAL: Positive Tonsillectomy Social History SMOKING STATUS: Never smoker SECOND HAND EXPOSURE: No SUBSTANCE USE: does not use ALCOHOL: Never ED Exam Narrative Physical exam: Physical Exam: General: The vital signs were reviewed. Patient ambulated to the bathroom without any assistance and while off oxygen. Note his initial blood pressure is elevated 183/88 and his respiratory rate is a little elevated. The patient is non- toxic, in no apparent distress and appears healthy with a patent airway, no respiratory distress and has no apparent circulatory problems. Head & Scalp: Normocephalic, atraumatic. Face: Appears normal and is without lesions, deformity. Ears: Left external pinna appears normal. Right external pinna appears normal. Eyes: The sclera is anicteric. No obvious photophobia. The Left and Right Orbit/Lid/Conjunctiva appears normal without swelling, discoloration or injection. Nose: The nose is without deformity, discharge or tenderness; Throat: Appears normal. The mucous membranes are pink and moist without exudates, redness or mass seen. The tongue appears normal. Neck: The neck is supple and no apparent mass or adenopathy. Chest: The chest wall is normal in size and symmetry and has no chest wall tenderness or crepitus. The patient displays increased respiratory rate with diffuse wheezes in all lung reeves Cardiovascular: Regular rate and rhythm; No murmurs, rubs, or gallops; Gastrointestinal: The abdomen appears normal. No obvious hernias or mass. The abdomen is soft and benign, non-distended, with no pain, no guarding and no rebound tenderness. Bowel sounds are present and normal sounding. No CVA tenderness. Genitourinary: Back/Spine: Normal inspection Extremities/Musculoskeletal/lymphatic: The bilateral upper and lower extremities are warm. There is no evidence of arterial insufficiency. There is no evidence of venous insufficiency/edema. The patient spontaneously moves bilateral upper and lower extremities with no pain and no limitation of movement. There is no apparent, injury or trauma. Skin: The skin is warm, dry and intact. No rashes. No petechia. No purpura. No abnormal bruising. The color is appropriate with no cyanosis. Mental status/Psychiatric: Mental status is appropriate for age. The patient has no apparent delusions, visual hallucinations, no apparent audible hallucinations. The patient has no apparent suicidal thoughts/ideation and no apparent homicidal thoughts/ideation. Neurological: The patient is awake, alert, interactive, cordial, cooperative and is oriented to name and situation. The patient follows commands and answers historical question with no impairment. There is no visual disturbance apparent. The pupils are equal and reactive bilaterally with normal eye movements and no diplopia The bilateral upper and lower extremities have normal strength, normal range of motion and normal functioning. 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 STAT Care 12/18/24 09:48 Active Continuous Pulse Oximetry STAT Care 12/18/24 09:48 Completed EKG (ED ONLY) *Do not use* NOW Care 12/18/24 09:48 Completed Insert IV NOW Care 12/18/24 09:48 Active Miscellaneous Nursing Order NOW Care 12/18/24 09:48 Active NPO STAT Care 12/18/24 09:48 Active EKG (ED Only) Stat Exams 12/18/24 09:48 Ordered XR chest 1V portable Stat Exams 12/18/24 09:48 Completed B-Type Natriuretic Peptide Stat Lab 12/18/24 11:04 Completed CBC Stat Lab 12/18/24 08:48 Completed Comprehensive Metabolic Panel Stat Lab 12/18/24 08:48 Completed Lactate (Lactic Acid) Stat Lab 12/18/24 11:04 Results Magnesium Stat Lab 12/18/24 08:48 Completed Troponin I Stat Lab 12/18/24 08:48 Completed Urinalysis Stat Lab 12/18/24 09:48 Ordered Venous Blood Gas Stat Lab 12/18/24 11:04 Completed ALBUTEROL RT 0.5ml [Proventil Rt 0.5ml] Med 12/18/24 09:48 Discontinued 10 mg INH X1 ONE Ipratropium Isle Rt Anastasiya [Atrovent Rt Anastasiya] Med 12/18/24 09:48 Discontinued 0.5 mg INH X1 ONE MethylPREDNISolone.* [SoluMEDROL Inj] Med 12/18/24 09:48 Discontinued 125 mg IVP X1 ONE Oxygen Delivery NOW RT 12/18/24 09:48 Active Vital Signs Vital signs: Vital Signs Temperature 98.4 F 12/18/24 08:27 Pulse Rate 80 12/18/24 08:27 Respiratory Rate 24 H 12/18/24 08:27 Blood Pressure 183/88 H 12/18/24 08:27 Pulse Oximetry (%) 95 12/18/24 08:27 Oxygen Delivery Method Nasal Cannula 12/18/24 08:27 Oxygen Flow Rate 2 12/18/24 08:27 Shortness of Breath / Dyspnea MDM Narrative MDM Narrative:: Patient has a history of coccidiomycosis that is nondisseminated by history at least there is diffuse wheezing in all lung reeves and will initiate breathing treatments and a medical workup for shortness of breath. Reevaluation after continuous nebs 10 mg reveals lungs are much improved though he still has diffuse wheezing in all l lung reeves. Patient never had asthma or wheezing up until maybe 2 years ago he had intermittent wheezing and in the last month he has had about they got 5 days of steroids and then he got better temporarily and got rebound and got worse resulting him coming in today. Also his O2 sats were in the low 90s and today he is on 2 L and comfortable. Because of the rebound I will going admit him for more steroids and continuous nebs. I also called his primary doctor and Amanda Hudson and discussed possible home nebulizer machine and further workup for reactive airway disease or asthma or adult onset COPD. 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 BNP is negative at 21 Portable chest x-ray reveals no obvious cavitary lesion and compared to a year ago x-ray is markedly improved in the left upper parahilar area where he once had a cavity that was visible. There is no effusion heart size is normal. Review of the charts reveals he was just in the hospital and I just spoke with the resident who was involved in his care couple weeks ago and they are concerned about cocci as the IgM evidently was elevated. This suggesting there is an acute component. Evidently further titers are going to be worked up with ERICK Velasquez and there was no evidence of dissemination based on the CT scan of the chest and there is no other lumps or bumps anywhere to suggest dermal seeding or other secondary sites of metastatic cocci This time admit the patient since his O2 sats are borderline he still wheezing despite 10 mg of albuterol and the question of whether steroids will be beneficial or not is a discussion point as he needs them to decrease the inflammation of his lungs but they are worried about reactivating the cocci evidently. I also contacted the patient's primary care doctor Dr. Amanda Smith and informed the patient might need his home nebulizer machine. I, Cassie Paez am scribing for and in the presence of Dr. Rodriguez. Patient data External records reviewed:: [facility] previous records (Reviewed last admission discharge dated 12/15/24, patient admitted for the following: Hypoxia.) and EMS form Clinical information provided by:: patient and EMS Social determinants that could affect healthcare access:: none Patient has the following chronic illnesses:: hypertension, cocci pneumonia in 2023, completed 3 months of treatment with fluconazole in January 2024 How is presenting disease/condition affected by chronic disease/condition?: exacerbated by Evaluation data The following diagnostics were reviewed and interpreted by me:: lab results, radiology exam(s) and EKG tracing(s) (EKG#1: EKG at 1330 hours. Interpreted by me: sinus rhythm, rate 88, no STEMI) Lab and/or radiology exams considered but not ordered:: none Interpretation Summary: See under MDM narrative. RADIOLOGY Procedure(s): XR chest 1V portable Accession Number(s): [id number] cc: Brett Rodriguez MD; Hoang Keller MD; Jarrell Smith MD~ Exam admission: Examination: AP chest single view Technique one AP portable upright chest single view Exam date and time: December 18, 2024 0957 hrs. Comparison December 12, 2024 Indications: Shortness of breath coughing beginning 5 days ago. Findings: Accentuation basilar bronchovascular markings Minor prominence left ventricle Minimal pulmonary vascular redistribution. No lance pulmonary edema Moderate osteopenia Impression: Basilar bronchitis pattern Dictated By: Hoang Keller MD Medications / Prescriptions Medications or Prescriptions considered but not ordered:: none Medication administrations:: Medication Administration History Discontinued Medications Albuterol (Albuterol Rt 2.5 Mg/0.5 Ml Nebu) 10 mg INH X1 ONE Stop: 12/18/24 09:49 Last Admin: 12/18/24 10:01 Dose: 10 mg Documented By: RANI Ipratropium Isle (Ipratropium Rt 0.5 Mg/ 2.5 Ml Nebu) 0.5 mg INH X1 ONE Stop: 12/18/24 09:49 Last Admin: 12/18/24 10:01 Dose: 0.5 mg Documented By: RANI Methylprednisolone Sodium Succinate (Methylprednisolone Sod Succ 62.5 Mg/Ml 2ml Vial) 125 mg IVP X1 ONE Stop: 12/18/24 09:49 Last Admin: 12/18/24 10:28 Dose: 125 mg Documented By: RANI(2) see above Consultations Consultation(s) initiated? (list below): Yes Consultation #1 (Physician, Specialty, Details): Discussed test HPI, PMHx, lab, radiology results and/or management with hospitalist. Will admit for further evaluation and management. Accepts patient for admission. Time: 13:54 Diagnosis Shortness of Breath Differential Diagnosis: community acquired pneumonia and other (coccidiomycosis, sepsis) Most likely diagnosis given after review of the tests above:: As noted below. Admission Indicated Admission indicated?: indicated Admission Request Was there a request for admission?: Yes Admission Attestation Admission request attestation: Discussed case with [] from Hospitalist service regarding admission. Discussed patients ED course, exam findings, labs, and radiology results. The Hospitalist [agrees,declines] to accept the patient for admission. Disposition Plan Disposition Plan: Admit Critical Care Time Critical Care Time Critical Care Time: Yes Total Critical Care Time (min.): 45 Attestation: The high probability of sudden, clinically significant deterioration in the patient's condition required the highest level of my preparedness to intervene urgently. The services I provided to this patient were to treat and/or prevent clinically significant deterioration. Services included the following: chart data review, reviewing nursing notes and/or old charts, documentation time, data governance consultant collaboration regarding findings and treatment options, medication orders and management, direct patient care, vital sign assessments and ordering, interpreting and reviewing diagnostic studies and lab tests. Aggregate critical care time includes only time during which I was engaged in work directly related to the patient's care, as described above, whether at bedside or elsewhere in the Emergency Department. It did not include time spent performing other reported procedures or the services of residents, students, nurses or physician assistants. Discharge Plan Plan Patient Disposition: Admit Acute Care w/in Hospital Disposition Comment: Hospitalist admit Prescriptions/Referrals Prescriptions/Med Rec: No Action losartan 50 mg tablet 50 mg PO DAILY Hold Instructions: Resume on 12/24/24. Patient is recommended to resume medication after follow-up with primary care physician and repeat CMP. Patient's acute kidney injury is improving and blood pressure has been fairly well-controlled on amlodipine 10 mg p.o. daily Patient Comments: TAKE 1 TABLET BY MOUTH EVERY DAY amlodipine 10 mg tablet 5 mg PO DAILY Patient Comments: TAKE 1 TABLET BY MOUTH EVERY DAY albuterol sulfate 90 mcg/actuation HFA aerosol inhaler 1 inh inhalation QID PRN (Reason: shortness of breath or wheezing) Qty: 8.5 0RF itraconazole 100 mg capsule 200 mg PO BID Qty: 120 1RF Rx Instructions: must administer with a meal/food guaifenesin [Mucinex] 600 mg tablet extended release 12hr 600 mg PO Q12H PRN (Reason: congestion) Qty: 10 0RF Referrals: Jarrell Smith MD [Primary Care Provider] - In 1 week Problem List Clinical Impression: RAD (reactive airway disease), Hypoxia, SOB (shortness of breath), Coccidioidomycosis Patient/Caregiver Discharge Instructions Print Language: Peruvian Stand Alone Forms: Rashmi Award Info., Patient Portal Info Letter
[2024-12-18] MEDS: IPRATROPIUM RT 0.5 MG/ 2.5 ML NEBU INH ×2 (10:01→18:47)
[2024-12-18] MEDS: ALBUTEROL RT 2.5 MG/0.5 ML NEBU 10 MG INH ×2 (10:01→14:18)
[2024-12-18] MEDS: MethylPREDNISolone SOD SUCC 62.5 MG/ML 2ML VIAL 125 MG IVP (10:28)
[2024-12-18 11:12] LABS: Base Excess, Venous -1 (-3-3); Lactate (Lactic Acid) 2.3 mMol/L (0.4-2.0); O2 Saturation, Venous 88 % (96-97); PCO2, Venous 39 mmHg (36-56); PO2, Venous 50 mmHg (15-58); pH, Venous 7.39 (7.33-7.66)
[2024-12-18 11:13] LABS: Basophils # (Auto) 0.1 Thou/mm3 (0.0-0.2); Basophils % (Auto) 1 % (0-2.5); Eosinophils # (Auto) 0.4 Thou/mm3 (0.0-0.5); Eosinophils % (Auto) 6 % (0-10); Hematocrit 46.6 % (41.0-53.0); Hemoglobin 16.1 g/dL (13.5-16.0); Immature Granulocytes % (Auto) 0 % (0-0); Immature Granulocytes Auto 0.02 Thou/mm3 (0.00-0.00); Lymphocytes # (Auto) 1.3 Thou/mm3 (1.0-4.8); Lymphocytes % (Auto) 20 % (10-50); Mean Corpuscular HGB Conc 34.5 g/dl (31.0-37.0); Mean Corpuscular Hemoglobin 30.4 pg (25.0-35.0); Mean Corpuscular Volume 88 fL (80-100); Monocytes # (Auto) 0.6 Thou/mm3 (0.0-0.8); Monocytes % (Auto) 10 % (0-12); Neutrophils # (Auto) 4.1 Thou/mm3 (1.8-7.7); Neutrophils % (Auto) 64 % (37-80); Nucleated Red Blood Cell % 0 /100 WBC (0); Platelet Count 210 Thou/mm3 (140-440); RDW Standard Deviation 38.5 fL (35.1-43.9); White Blood Count 6.4 Thou/mm3 (3.8-10.6)
[2024-12-18 11:34] LABS: B-Type Natriuretic Peptide 21 pg/mL (0-100)
[2024-12-18 11:36] LABS: Alanine Aminotransferase 16 U/L (10-49); Albumin, Serum 4.5 gm/dL (3.4-4.8); Albumin/Globulin Ratio 1.6 (1.2-2.2); Alkaline Phosphatase 88 U/L (46-116); Anion Gap 8 (7-16); Aspartate Amino Transferase 14 U/L (0-34); BUN/Creatinine Ratio 14 Ratio (12-20); Bilirubin,Total 1.4 mg/dL (0.3-1.2); Blood Urea Nitrogen 17 mg/dL (9-23); Calcium 9.4 mg/dL (8.3-10.6); Calcium (Corrected) 9.4 mg/dL (8.5-10.1); Carbon Dioxide 26.6 mMol/L (20.0-31.0); Chloride 105 mMol/L (98-107); Creatinine (Component) 1.2 mg/dL (0.6-1.3); Estimated Creatinine Clearance 64.9 mL/min (>60); Globulin 2.9 gm/dL (2.3-3.5); Glucose 104 mg/dL (74-106); Magnesium 1.9 mg/dL (1.6-2.6); Osmolality,Calculated 280 (275-295); Potassium 3.9 mMol/L (3.4-5.1); Sodium 140 mMol/L (136-145); Total Protein 7.4 gm/dL (5.7-8.2); eGFR > 60 See Note
[2024-12-18 11:37] LABS: Troponin I 0.068 ng/mL (0.0-0.045)
[2024-12-18 14:07] LABS: Reflex Lactate? Y
--- NOTE | 2024-12-18 14:15 | PC.NURSE ---
Called RT for nebulizer tx.
[2024-12-18 14:33] LABS: Lactic Acid, 3 HR 5.1 mMol/L (0.4-2.0)
--- NOTE | 2024-12-18 14:52 | ESHP_ITS ---
<Statement entered by Veronica Turcios MD - 12/24/24 13:39> I reviewed above note and agree with findings and plans. I have also personally examined the patient with medicine team and went over assessment and plan with medical team including qa intern and resident physician. Documentation for date of: 12/18/24 HPI History of Present Illness History of present illness: Mr Muir is a 69-year-old male with a past medical history of hypertension, and reactive airway disease who presented to the ER complaining of being unable to sleep, wheezing and shortness of breath. Patient has a past medical history of valley fever, was treated in November 2023 with fluconazole as well as recently found to have cocci serology positive and was started prior terconazole by patient's infectious specialist Dr. Lynch in [place]. Of note patient stated that he does not have a prior diagnosis of asthma or COPD but does develop respiratory symptoms whenever he visits his son in [place]. Patient was discharged from hospital couple days ago following a diagnosis of cocci pneumonia on itraconazole, at time of evaluation in the ER the patient is in respiratory distress, received hour-long nebulization in the ER, and IV steroids, patient denied having any fever, endorsed cough?nonproductive, throat discomfort secondary to frequent coughing, being unable to sleep due to respiratory distress. Denied chest pain or pressure, fever, lower limb edema. The patient reported that the only time he feels better is when he gets steroids, but there is concern of flareup of valley fever if given steroids during active coccidiomycosis infection. Of note patient had a negative workup for tuberculosis during prior admit. Initial imaging shows hyperexpanded lung reeves likely previously undiagnosed obstructive airway disease, currently physical exam pertinent for wheezing and basal crackles, more in the right side compared to left. Initial labs pertinent for polycythemia as well as lactic acidosis, noted uptrending lactic acidosis, likely following repeat nebulizations, possible type B lactic acidosis. Also noted troponin elevation. Will trend troponins. Review of Systems Review of Systems Narrative Review of Systems: General: Denies fevers or chills HEENT: Denies congestion or sore throat Heart: Denies chest pain or palpitations Lungs: see above Abdomen: Denies diarrhea, nausea, vomiting, constipation, bright red blood per rectum or melena Genitourinary: Denies frequency, urgency, dysuria, or hematuria Musculoskeletal: Denies joint pain, denies muscular pain Neurology: Denies any numbness, tingling Review of systems otherwise negative except what is mentioned above. Past Medical History Past Medical History NEUROLOGIC: Negative Neurological Disorders or Seizures CARDIAC: Positive Hypertension; Negative Cardiac Disorders, Hypercholesterolemia or Congestive Heart Failure RESPIRATORY: Positive Respiratory Disorders (VALLEY FEVER); Negative Chronic Obstructive Pulmonary Disease (COPD) or Asthma GASTROINTESTINAL: Positive Gastrointestinal Disorders; Negative Hepatitis or Colorectal Cancer GENITOURINARY: Positive Genitourinary Disorders and Kidney Stones; Negative Renal Disease or Prostate Cancer REPRODUCTIVE: Negative Breast Cancer or Testicular Cancer MUSCULOSKELETAL: Negative Musculoskeletal Disorders, Bone Cancer, Arthritis, Gout or Fractures ENT: Negative Cataracts ENDOCRINE: Negative Endocrine Disorders, Diabetes Mellitus Type 1 or Diabetes Mellitus Type 2 HEMATOLOGIC: Negative Blood Disorders or Sickle Cell Disease PSYCHO/SOCIAL: Negative Anxiety OTHER HISTORY: Positive Chicken Pox; Negative Autoimmune Disease, Falls, Blood Transfusions, Blood Transfusion Reaction, Anesthesia Reactions, Organ Transplant, MRSA, VRSA, Vancomycin- Resistant Enterococci, Clostridium Difficile, Breast Cancer, Cervical Cancer, Colorectal Cancer, Lung Cancer, Ovarian Cancer, Prostate Cancer or Testicular Cancer Family History FAMILY HISTORY: Negative Family Psychiatric Problems, Family Respiratory Disorders, Family Cardiac Disorders, Family Gastrointestinal Problems, Family Cancer, Family Surgery or Family Anesthesia Reaction Surgical History SURGICAL: Positive Tonsillectomy; Negative Cardiac Surgery, Open Heart Surgery, Coronary Artery Bypass Graft, Valve Replacement, Vascular Surgery, Coronary Stent, Cardiac Catheterization, Pacemaker, Angiogram, Auto Implanted Cardiovert Defib, Carotid Endarterectomy, Endocrine Surgery, Ear Surgery, Tympanostomy Tube, Eye Surgery, Nose Surgery, Oral Surgery, Abdominal Surgery, Nephrectomy, Joint Replacement, Neurologic Surgery, Mastectomy, Vasectomy or Organ Transplant Social History SMOKING STATUS: Never smoker SECOND HAND EXPOSURE: No SUBSTANCE USE: does not use Exam Vital Signs Temp Pulse Resp BP Pulse Ox O2 Del Method O2 Flow Rate 97.9 F 83 22 H 169/80 H 96 Room Air 3 12/18/24 13:14 12/18/24 14:22 12/18/24 14:22 12/18/24 13:14 12/18/24 14:22 12/18/24 13:14 12/18/24 14:22 Narrative Exam GENERAL: A&Ox3 . Awake, in moderate respiratory distress, sitting upright, getting nebulization NEURO: no focal neurological deficits HEENT: Atraumatic, Normocephalic. mucous membranes moist. Eyes open, symmetrical, & clear HEART: Normal Heart Sounds LUNGS: Basal crackles and wheezing more prominent on the right chest. ABDOMEN: soft, non-distended, non-tender, bowel sounds heard, no guarding or rebound tenderness SKIN: No Rash or ecchymoses, noted scar from a previous excision behind the neck. EXTREMITIES: No edema, no tenderness, able to move all 4 extremities, pedal pulses palpated Results: Labs 12/18/24 08:48 12/18/24 08:48 Labs: Short CBC 12/18/24 Range/Units 08:48 WBC 6.4 (3.8-10.6) Thou/mm3 Hgb 16.1 H (13.5-16.0) g/dL Hct 46.6 (41.0-53.0) % Plt Count 210 D (140-440) Thou/mm3 BMP 12/18/24 08:48 Sodium 140 Potassium 3.9 Chloride 105 Carbon Dioxide 26.6 BUN 17 Creatinine 1.2 Glucose 104 Calcium 9.4 Cardiac Enzymes 12/18/24 Range/Units 08:48 Troponin I 0.068 H* (0.0-0.045) ng/mL Liver Function 12/18/24 Range/Units 08:48 Total Bilirubin 1.4 H (0.3-1.2) mg/dL AST 14 (0-34) U/L ALT 16 (10-49) U/L Alkaline Phosphatase 88 (46-116) U/L Albumin 4.5 (3.4-4.8) gm/dL ABG Interpretation ABG results: 12/18/24 11:04 VBG pH 7.39 VBG pCO2 39 VBG pO2 50 VBG Base Excess -1 Quality Measures Quality Measures none Advance care planning discussed with:: patient Medications Home Medications and Allergies Home Medications ?Medication ?Instructions ?Recorded ?Confirmed ?Type amlodipine 10 mg tablet 5 mg PO DAILY 11/28/23 11/28/23 History losartan 50 mg tablet 50 mg PO DAILY 11/28/23 11/28/23 History Allergies Allergy/AdvReac Type Severity Reaction Status Date / Time codeine Allergy Severe THROAT Verified 11/28/23 20:17 SWELLS, RASH Visit Medications Sodium Chloride (Ns) 500 mls @ 999 mls/hr IV .Q31M ONE Stop: 12/18/24 15:05 Sodium Chloride (Sodium Chloride Rt Anastasiya 0.9% 3 Ml Nebu) 3 ml INH PRN PRN PRN Reason: SOLN Stop: 01/17/25 14:04 Discontinued Medications Albuterol (Albuterol Rt 2.5 Mg/0.5 Ml Nebu) 10 mg INH X1 ONE Stop: 12/18/24 09:49 Last Admin: 12/18/24 10:01 Dose: 10 mg Albuterol (Albuterol Rt 2.5 Mg/0.5 Ml Nebu) 10 mg INH X1 ONE Stop: 12/18/24 14:06 Last Admin: 12/18/24 14:18 Dose: 10 mg Ipratropium [place] (Ipratropium Rt 0.5 Mg/ 2.5 Ml Nebu) 0.5 mg INH X1 ONE Stop: 12/18/24 09:49 Last Admin: 12/18/24 10:01 Dose: 0.5 mg Methylprednisolone Sodium Succinate (Methylprednisolone Sod Succ 62.5 Mg/Ml 2ml Vial) 125 mg IVP X1 ONE Stop: 12/18/24 09:49 Last Admin: 12/18/24 10:28 Dose: 125 mg Assessment & Plan Plan Is a 69-year-old male with a past medical history of hypertension, and reactive airway disease who presented to the ER complaining of being unable to sleep, wheezing and shortness of breath. Patient has a past medical history of valley fever, was treated in November 2023 with fluconazole as well as recently found to have cocci serology positive and was started prior terconazole by patient's infectious specialist Dr. Lynch in [place]. Of note patient stated that he does not have a prior diagnosis of asthma or COPD but does develop respiratory symptoms whenever he visits his son in [place]. Patient was discharged from hospital couple days ago following a diagnosis of cocci pneumonia on itraconazole, at time of evaluation in the ER the patient is in respiratory distress, received hour-long nebulization in the ER, and IV steroids, patient denied having any fever, endorsed cough?nonproductive, throat discomfort secondary to frequent coughing, being unable to sleep due to respiratory distress. Denied chest pain or pressure, fever, lower limb edema. The patient reported that the only time he feels better is when he gets steroids, but there is concern of flareup of valley fever if given steroids during active coccidiomycosis infection. Of note patient had a negative workup for tuberculosis during prior admit. Initial imaging shows hyperexpanded lung reeves likely previously undiagnosed obstructive airway disease, currently physical exam pertinent for wheezing and basal crackles, more in the right side compared to left. Initial labs pertinent for polycythemia as well as lactic acidosis, noted uptrending lactic acidosis, likely following repeat nebulizations, possible type B lactic acidosis. Also noted troponin elevation. Will trend troponins. #Type II NSTEMI ? Noted troponin elevation, likely type II VT, patient denied any active chest pain, but will trend troponins until peaked. ? Ordered stat EKG, will consider anticoagulation if significant EKG changes concerning for ischemia. #Lactic acidosis, likely type B ? Lactic acidosis on admission, uptrending lactic acid 5.1, following hour-long nebulization, possible type B lactic acidosis, as the patient denied having fever and does not have leukocytosis, stable vitals on admission. ? Will trend lactic acid, received IV fluid bolus in the ER, will continue IV fluids boluses as needed. ? Will switch DuoNebs to levalbuterol /ipratropium/budesonide #Acute hypoxic respiratory failure #Concern for HCAP ? Patient had respiratory distress, following recent hospital admission, Meets criteria for HCAP, chest x-ray shows bronchitis pattern. Will get chest CT for better imaging, as patient has fairly localized wheezing, localized to the right chest, unusual for obstructive airway disease, ? Follow blood cultures, sputum cultures, Legionella antigen, RSV, influenza and COVID ? IV cefepime 2 g every 8 hours started 12/18? ? IV doxycycline 100 mg every 12 hours started 12/18? #Possible obstructive airway disease/COPD ? Chest x-ray shows hyperinflated lungs, patient denied having a history of COPD or asthma, possible undiagnosed COPD, obstructive versus reactive airway disease. Unfortunately we do not have pulmonary function tests available at this hospital, will continue to manage empirically based on physical exam and clinical sign. ? Will switch DuoNebs to levalbuterol /ipratropium/budesonide, due to concern for type a lactic acidosis ? Received IV steroid in the emergency room, methylprednisone 125 mg x 1, will reevaluate tomorrow if need for repeat steroids, due to concern for active coccidiomycosis will be cautious given steroids, but patient reports the only time he felt better during the previous healthcare encounters was when he got steroids. #Pulmonary coccidiomycosis ? Follows Dr. Lynch infectious specialist in [place], who started him on itraconazole, as patient was unable to tolerate fluconazole for pulmonary coccidiomycosis and treatment was terminated after 3 months in January 2024., On repeat testing during previous hospitalization, positive serology for coccidiomycosis, was started on itraconazole. ? Itraconazole 200 mg daily #Hyperbilirubinemia ? Noted persistently elevated T. bili following starting antifungals, possibly drug adverse event, patient has denied any right upper quadrant abdominal pain, normal ALT AST and alk phos, do not suspect he has any gallbladder disease at the moment. ? Continue to trend liver enzymes #Polycythemia ? Noted polycythemia, on admission hemoglobin 16.1, possibly hemoconcentration due to dehydration vs polycythemia secondary to COPD. ? Will continue to monitor #Hypertension ?Continue home medications amlodipine and losartan ? IV hydralazine 10 mg for SBP more than 170 Disposition: Observation DVT prophylaxis: Heparin subcut GI prophylaxis: None Diet: Low-sodium Lines: PIV CODE STATUS: Full Plan of care discussed no attending Dr. Tam Monique PGY2
[2024-12-18 15:05] LABS: Troponin I 0.088 ng/mL (0.0-0.045)
--- NOTE | 2024-12-18 15:13 | XR_ITS ---
Examination: CT chest with intravenous contrast 2-D sagittal and coronal reconstructions Exam date and time: December 18, 2024 1602 hours Comparison December 12, 2024 INDICATIONS: New onset wheezing in the right chest difficulty breathing 3 weeks CTDI:vol (mGy) 13.5 DLP: (mGycm) 483 Technique: Multiple axial sections of the thorax have been obtained. Sections have been obtained, 3 mm slice thickness. Mediastinal and lung density settings have been obtained. Intravenous contrast administered, 60 cc [id number]. 2-D sagittal, coronal images obtained. Low dose protocols were performed. One or more of the following dose reduction techniques were used; automated exposure control, adjustment of the mA and/or KV according to patient size, use of iterative reconstruction technique. Findings: Small right tracheobronchial hilar para-aortic lymph nodes No thoracic aortic aneurysm dilatation Pulmonary artery segments are not enlarged Pulmonary artery opacification is poor Minimal hilar lymphadenopathy Again noted thick-walled cavitary lesion left upper lobe with surrounding satellite nodular disease No interval pneumonia in the right lung is depicted. No visualized liver or splenic lesion No gallstones No pancreatic or adrenal mass Kidneys partially visualized no hydronephrosis Fusion T10 and T11 vertebral bodies again noted IMPRESSION: Thick-walled cavitary parenchymal disease left upper lobe again noted. No interval infiltrate in the right lung No interval pulmonary edema
[2024-12-18] MEDS: SODIUM CHLORIDE 0.9% 500 ML 500 ML 999 ML IV (15:34)
[2024-12-18] MEDS: DOXYCYCLINE INJ 100 MG in SODIUM CHLORIDE 0.9% (P) 100 ML IV (15:39)
[2024-12-18] MEDS: SODIUM CHLORIDE 0.9% 1000 ML 1,000 ML 250 ML IV (15:41)
[2024-12-18 15:48] LABS: Lactate (Lactic Acid) 8.2 mMol/L (0.4-2.0)
--- NOTE | 2024-12-18 15:54 | PC.NURSE ---
patient to CT via gurney with automation technician.
[2024-12-18 16:37] LABS: Collection Type, Urine Clean Catch; Squamous Epithelial Cell,Urine 0 /hpf (0-5)
[2024-12-18 16:46] LABS: Albumin, Serum 4.4 gm/dL (3.4-4.8); Anion Gap 17 (7-16); BUN/Creatinine Ratio 11 Ratio (12-20); Blood Urea Nitrogen 16 mg/dL (9-23); Calcium 9.4 mg/dL (8.3-10.6); Calcium (Corrected) 9.4 mg/dL (8.5-10.1); Carbon Dioxide 17.9 mMol/L (20.0-31.0); Chloride 104 mMol/L (98-107); Creatinine (Component) 1.4 mg/dL (0.6-1.3); Estimated Creatinine Clearance 55.6 mL/min (>60); Glucose 199 mg/dL (74-106); Osmolality,Calculated 284 (275-295); Phosphorous 2.5 mg/dL (2.4-5.1); Potassium 3.6 mMol/L (3.4-5.1); Sodium 139 mMol/L (136-145); eGFR 54 See Note
[2024-12-18 16:59] LABS: Bilirubin,Urine Negative (Negative); Blood,Urine Negative (Negative); Clarity,Urine Clear (Clear/Hazy); Color,Urine Yellow (Lt Yel-Yel); Glucose, Urine Negative (Negative); Ketones,Urine 1+ (Negative); Leukocyte Esterase,Urine Negative (Negative); Nitrite,Urine Negative (Negative); Protein,Urine 2+ (Neg - Trace); RBC,Urine 2 /hpf (0-3); Specific Gravity,Urine 1.035 (1.001-1.035); Urobilinogen,Urine Negative mg/dL (0.0-1.0); WBC,Urine 3 /hpf (0-5)
[2024-12-18] MEDS: CEFEPIME INJ 2 GM in SODIUM CHLORIDE 0.9% (P) 50 ML IV ×2 (17:52→21:06)
[2024-12-18] MEDS: SODIUM CHLORIDE 0.9% 1000 ML 1,000 ML 999 ML IV (17:59)
[2024-12-18] MEDS: RINGERS LACTATED 1000 ML 1,000 ML 999 ML IV (18:01)
[2024-12-18 18:44] LABS: Reflex Lactate? Y
[2024-12-18] MEDS: LEVALBUTEROL RT 0.63 MG/3 ML NEBU INH (18:46)
[2024-12-18] MEDS: BUDESONIDE RT 0.5 MG/2 ML NEBU INH (18:47)
[2024-12-18 19:05] LABS: Respiratory Syncytial Virus Ag Negative (Negative)
[2024-12-18 19:07] LABS: Troponin I 0.112 ng/mL (0.0-0.045)
[2024-12-18] MEDS: HEPARIN SOD INJ 5000 UNIT/ML VIAL SC (20:33)
[2024-12-18 21:40] LABS: Reflex Lactate? Y
[2024-12-18 22:00] LABS: Lactic Acid, 3 HR 7.5 mMol/L (0.4-2.0)
[2024-12-19] VITALS (18 sets, daily range): BP systolic 121–159; BP diastolic 60–78; PULSE 54–99; RESP 15–23; TEMP 36.4–36.8; O2SAT 92–100; BMI 29.6
[2024-12-19 01:15] LABS: Troponin I 0.131 ng/mL (0.0-0.045)
[2024-12-19] MEDS: LEVALBUTEROL RT 0.63 MG/3 ML NEBU INH ×3 (01:54→13:08)
[2024-12-19] MEDS: IPRATROPIUM RT 0.5 MG/ 2.5 ML NEBU INH ×4 (01:54→18:05)
[2024-12-19 02:22] LABS: Base Excess -2 (-3-3); HCO3 23 mEq/L (20-26); Inspired O2, VO2 Liters 6 L/min; Inspired Oxygen, FIO2 21 %; O2 Saturation 99 % (91-98); PCO2 37 mmHg (32.0-48.0); PO2 108 mmHg (83-108); pH, Arterial 7.39 (7.35-7.45)
[2024-12-19 02:23] LABS: Allen Test Performed/OK; Puncture Site Right Radial
[2024-12-19] MEDS: CEFEPIME INJ 2 GM in SODIUM CHLORIDE 0.9% (P) 50 ML IV ×2 (05:28→15:59)
[2024-12-19 05:30] LABS: Lactate (Lactic Acid) 1.3 mMol/L (0.4-2.0)
[2024-12-19 05:40] LABS: Basophils % (Auto) 0 % (0-2.5); Eosinophils % (Auto) 0 % (0-10); Hematocrit 39.1 % (41.0-53.0); Hemoglobin 13.4 g/dL (13.5-16.0); Immature Granulocytes % (Auto) 0 % (0-0); Immature Granulocytes Auto 0.03 Thou/mm3 (0.00-0.00); Lymphocytes # (Auto) 0.7 Thou/mm3 (1.0-4.8); Lymphocytes % (Auto) 7 % (10-50); Mean Corpuscular HGB Conc 34.3 g/dl (31.0-37.0); Mean Corpuscular Hemoglobin 30.3 pg (25.0-35.0); Mean Corpuscular Volume 89 fL (80-100); Monocytes # (Auto) 0.1 Thou/mm3 (0.0-0.8); Monocytes % (Auto) 1 % (0-12); Neutrophils # (Auto) 9.4 Thou/mm3 (1.8-7.7); Neutrophils % (Auto) 92 % (37-80); Nucleated Red Blood Cell % 0 /100 WBC (0); Platelet Count 162 Thou/mm3 (140-440); RDW Standard Deviation 39.5 fL (35.1-43.9); Red Blood Count 4.42 Miln/mm3 (4.50-5.90); White Blood Count 10.2 Thou/mm3 (3.8-10.6)
[2024-12-19 05:54] LABS: Prothrombin Time 11.3 Seconds (9.0-12.2)
[2024-12-19] MEDS: BUDESONIDE RT 0.5 MG/2 ML NEBU INH ×2 (05:56→18:05)
[2024-12-19 06:14] LABS: Alanine Aminotransferase 12 U/L (10-49); Albumin, Serum 3.9 gm/dL (3.4-4.8); Alkaline Phosphatase 70 U/L (46-116); Anion Gap 8 (7-16); Aspartate Amino Transferase 10 U/L (0-34); BUN/Creatinine Ratio 15 Ratio (12-20); Bilirubin,Direct 0.4 mg/dL (0.0-0.3); Bilirubin,Total 1.3 mg/dL (0.3-1.2); Blood Urea Nitrogen 19 mg/dL (9-23); Calcium 9.1 mg/dL (8.3-10.6); Carbon Dioxide 23.8 mMol/L (20.0-31.0); Cardiac Risk Estimate 2.9 RATIO (4.0-6.7); Chloride 107 mMol/L (98-107); Cholesterol 134 mg/dL (132-200); Creatinine (Component) 1.3 mg/dL (0.6-1.3); Estimated Creatinine Clearance 59.9 mL/min (>60); Glucose 163 mg/dL (74-106); HDL Cholesterol 46 mg/dL (40-60); LDL Cholesterol,Calculated 79 mg/dL (0-130); Magnesium 1.9 mg/dL (1.6-2.6); Osmolality,Calculated 283 (275-295); Phosphorous 2.4 mg/dL (2.4-5.1); Potassium 4.4 mMol/L (3.4-5.1); Sodium 139 mMol/L (136-145); Total Protein 6.4 gm/dL (5.7-8.2); Triglycerides 47 mg/dL (30-150); eGFR 59 See Note
[2024-12-19 06:46] LABS: Thyroid Stimulating Hormone 0.52 uIU/mL (0.55-4.78)
[2024-12-19 07:04] LABS: Troponin I 0.131 ng/mL (0.0-0.045)
--- NOTE | 2024-12-19 07:30 | PC.NURSE ---
Received report from Taras ROSE and assumed care of patient. Presents to ER for SOB with HX Valley Fever X 1 yr. Patient is GCS15 and being admitted for hypoxia, SOB, and RAD. Patient is awake and answers all questions appropriately.
--- NOTE | 2024-12-19 08:51 | PC.PT ---
Patient was referred to PT for O2 walking test. Nursing staff may be able to check SPo2. Will cancel PT evaluation. Dr. Monique made aware.
[2024-12-19] MEDS: LOSARTAN POTASSIUM 25 MG TABLET 50 MG PO (09:27)
[2024-12-19] MEDS: amLODIPine BESYLATE 5 MG TABLET PO (09:28)
[2024-12-19] MEDS: DOXYCYCLINE INJ 100 MG in SODIUM CHLORIDE 0.9% (P) 100 ML IV ×2 (09:29→20:25)
[2024-12-19] MEDS: HEPARIN SOD INJ 5000 UNIT/ML VIAL SC (09:29)
[2024-12-19] MEDS: ITRACONAZOLE 100 MG 200 MG PO (10:52)
--- NOTE | 2024-12-19 13:26 | PD.RESPRO ---
Documentation for date of: 12/19/24 Subjective Subjective Interval history: The patient is evaluated the bedside, feeling good, reports no chest discomfort , says he felt some chest discomfort while nebulization with budesonide, troponins plateued, will stop further troponin cheks as pt is asymtomatic. and reports no active chest symptoms, wheezing is improved, Lactic acid normalized following iv fluids and discontinuing nebulizations with albuterol. stable vitals. Spoke to Dr Rutherford, about steroid use, as patient has possible COPD, and iv steroids led to rapid symptomatic improvement, per Dr Rutherford as long as pt is on treatment fro Cocci with itraconazole, short course of steroids is reasonable. Exam Vital Signs Temp Pulse Resp BP Pulse Ox O2 Del Method O2 Flow Rate 98.1 F 81 19 128/63 96 Nasal Cannula 2 12/19/24 10:56 12/19/24 10:56 12/19/24 10:56 12/19/24 10:56 12/19/24 10:56 12/19/24 10:56 12/19/24 10:56 Narrative Exam GENERAL: A&Ox3 . Awake, in no acute distress. NEURO: no focal neurological deficits HEENT: Atraumatic, Normocephalic. mucous membranes moist. Eyes open, symmetrical, & clear HEART: Normal Heart Sounds LUNGS: minimal wheezing bilaterally. ABDOMEN: soft, non-distended, non-tender, bowel sounds heard, no guarding or rebound tenderness SKIN: No Rash or ecchymoses, noted scar from a previous excision behind the neck. EXTREMITIES: No edema, no tenderness, able to move all 4 extremities, pedal pulses palpated Objective Labs 12/20/24 04:58 12/20/24 04:58 Labs: Laboratory Results - last 24 hr 12/18/24 12/18/24 12/18/24 14:18 15:33 15:47 WBC RBC Hgb Hct MCV MCH MCHC RDW Std Deviation Plt Count Neut % (Auto) Lymph % (Auto) [place] % (Auto) Eos % (Auto) Baso % (Auto) Neut # (Auto) Lymph # (Auto) [place] # (Auto) Eos # (Auto) Baso # (Auto) Immature Gran # (Auto) Absolute Nucleated RBC Immature Gran % Nucleated RBC % PT INR Puncture Site ABG pH ABG pCO2 ABG pO2 ABG HCO3 ABG O2 Saturation ABG Base Excess Oxygen Liter Flow FiO2 Sodium 139 Potassium 3.6 Chloride 104 Carbon Dioxide 17.9 L Anion Gap 17 H BUN 16 Creatinine 1.4 H Estim Creat Clear Calc 55.6 L eGFR 54 L BUN/Creatinine Ratio 11 L Glucose 199 H D Calculated Osmolality 284 Lactic Acid 5.1 H* 8.2 H* Calcium 9.4 Corrected Calcium 9.4 Phosphorus 2.5 Magnesium Total Bilirubin Direct Bilirubin AST ALT Alkaline Phosphatase Troponin I 0.088 H* Total Protein Albumin 4.4 Triglycerides Cholesterol LDL Cholesterol, Calc HDL Cholesterol Cholesterol/HDL Ratio TSH Ur Collection Type Clean Catch Urine Color Yellow Urine Clarity Clear Urine pH 6.0 Ur Specific [place] 1.035 Urine Protein 2+ A Urine Glucose (UA) Negative Urine Ketones 1+ A Urine Blood Negative Urine Nitrite Negative Urine Bilirubin Negative Urine Urobilinogen (Auto) Negative Ur Leukocyte Esterase Negative Urine RBC 2 Urine WBC 3 Ur Squamous Epith Cells 0 Urine Bacteria None RSV Rapid 12/18/24 12/18/24 12/18/24 18:18 18:30 21:49 WBC RBC Hgb Hct MCV MCH MCHC RDW Std Deviation Plt Count Neut % (Auto) Lymph % (Auto) [place] % (Auto) Eos % (Auto) Baso % (Auto) Neut # (Auto) Lymph # (Auto) [place] # (Auto) Eos # (Auto) Baso # (Auto) Immature Gran # (Auto) Absolute Nucleated RBC Immature Gran % Nucleated RBC % PT INR Puncture Site ABG pH ABG pCO2 ABG pO2 ABG HCO3 ABG O2 Saturation ABG Base Excess Oxygen Liter Flow FiO2 Sodium Potassium Chloride Carbon Dioxide Anion Gap BUN Creatinine Estim Creat Clear Calc eGFR BUN/Creatinine Ratio Glucose Calculated Osmolality Lactic Acid 10.0 H* 7.5 H* Calcium Corrected Calcium Phosphorus Magnesium Total Bilirubin Direct Bilirubin AST ALT Alkaline Phosphatase Troponin I 0.112 H* Total Protein Albumin Triglycerides Cholesterol LDL Cholesterol, Calc HDL Cholesterol Cholesterol/HDL Ratio TSH Ur Collection Type Urine Color Urine Clarity Urine pH Ur Specific [place] Urine Protein Urine Glucose (UA) Urine Ketones Urine Blood Urine Nitrite Urine Bilirubin Urine Urobilinogen (Auto) Ur Leukocyte Esterase Urine RBC Urine WBC Ur Squamous Epith Cells Urine Bacteria RSV Rapid Negative 12/19/24 12/19/24 12/19/24 00:30 02:15 04:59 WBC 10.2 D RBC 4.42 L Hgb 13.4 L D Hct 39.1 L MCV 89 MCH 30.3 MCHC 34.3 RDW Std Deviation 39.5 Plt Count 162 D Neut % (Auto) 92 H Lymph % (Auto) 7 L [place] % (Auto) 1 Eos % (Auto) 0 Baso % (Auto) 0 Neut # (Auto) 9.4 H Lymph # (Auto) 0.7 L [place] # (Auto) 0.1 Eos # (Auto) 0.0 Baso # (Auto) 0.0 Immature Gran # (Auto) 0.03 H Absolute Nucleated RBC 0.00 Immature Gran % 0 Nucleated RBC % 0 PT 11.3 INR 1.0 Puncture Site Right Radial ABG pH 7.39 ABG pCO2 37 ABG pO2 108 ABG HCO3 23 ABG O2 Saturation 99 H ABG Base Excess -2 Oxygen Liter Flow 6 FiO2 21 Sodium 139 Potassium 4.4 D Chloride 107 Carbon Dioxide 23.8 Anion Gap 8 BUN 19 Creatinine 1.3 Estim Creat Clear Calc 59.9 L eGFR 59 L BUN/Creatinine Ratio 15 Glucose 163 H Calculated Osmolality 283 Lactic Acid 1.3 Calcium 9.1 Corrected Calcium Phosphorus 2.4 Magnesium 1.9 Total Bilirubin 1.3 H Direct Bilirubin 0.4 H AST 10 ALT 12 Alkaline Phosphatase 70 D Troponin I 0.131 H* 0.131 H* Total Protein 6.4 Albumin 3.9 D Triglycerides 47 Cholesterol 134 LDL Cholesterol, Calc 79 HDL Cholesterol 46 Cholesterol/HDL Ratio 2.9 L TSH 0.52 L Ur Collection Type Urine Color Urine Clarity Urine pH Ur Specific [place] Urine Protein Urine Glucose (UA) Urine Ketones Urine Blood Urine Nitrite Urine Bilirubin Urine Urobilinogen (Auto) Ur Leukocyte Esterase Urine RBC Urine WBC Ur Squamous Epith Cells Urine Bacteria RSV Rapid ABG Interpretation ABG results: 12/18/24 12/19/24 11:04 02:15 ABG pH 7.39 ABG pCO2 37 ABG pO2 108 ABG HCO3 23 ABG O2 Saturation 99 H ABG Base Excess -2 VBG pH 7.39 VBG pCO2 39 VBG pO2 50 VBG Base Excess -1 Quality Measures Quality Measures none Advance care planning discussed with:: patient Assessment & Plan Assessment Current Active Medications: Generic Name Dose Route Start Last Admin Trade Name Freq PRN Reason Stop Dose Admin Acetaminophen 650 mg 12/18/24 14:56 Acetaminophen 325 Mg Tablet PO 01/17/25 14:55 Q6H PRN PAIN OR FEVER > 101 Amlodipine Besylate 5 mg 12/19/24 09:00 12/19/24 09:28 Amlodipine Besylate 5 Mg Tablet PO 01/18/25 08:59 5 mg QDAY GRAYSON Administration Budesonide 0.5 mg 12/18/24 19:00 12/19/24 05:56 Budesonide Rt 0.5 Mg/2 Ml Nebu INH 01/17/25 18:59 0.5 mg BIDRT GRAYSON Administration Heparin Sodium (Porcine) 5,000 unit 12/18/24 21:00 12/19/24 09:29 Heparin Sod Inj 5000 Unit/Ml Vial SC 01/01/25 20:59 5,000 unit Q12HR GRAYSON Administration Hydralazine HCl 10 mg 12/18/24 15:05 Hydralazine Inj 20 Mg/Ml Vial IV 01/17/25 15:04 Q6HR PRN SBP > 170 Doxycycline Hyclate 100 mg/ 100 mls @ 100 mls/hr 12/18/24 15:00 12/19/24 10:35 Sodium Chloride IV 12/25/24 14:59 Infused BID GRAYSON Infusion Cefepime HCl 2 gm/ Sodium 50 mls @ 100 mls/hr 12/19/24 14:00 Chloride IV 12/25/24 21:59 Q8HR GRAYSON Ipratropium [place] 0.5 mg 12/18/24 19:00 12/19/24 13:08 Ipratropium Rt 0.5 Mg/ 2.5 Ml Nebu INH 01/17/25 18:59 0.5 mg Q6HRRT GRAYSON Administration Itraconazole 200 mg 12/19/24 09:00 12/19/24 10:52 Itraconazole 100 Mg Capsule (Non-Formulary) PO 12/26/24 08:59 200 mg QDAY GRAYSON Administration Levalbuterol HCl 0.63 mg 12/18/24 18:00 12/19/24 13:08 Levalbuterol Rt 0.63 Mg/3 Ml Nebu INH 01/17/25 17:59 0.63 mg Q6HRRT GRAYSON Administration Losartan Potassium 50 mg 12/19/24 09:00 12/19/24 09:27 Losartan Potassium 25 Mg Tablet PO 01/18/25 08:59 50 mg QDAY GRAYSON Administration Ondansetron HCl 4 mg 12/18/24 14:56 Ondansetron Inj 2 Mg/Ml Inj 2 Ml IV 01/17/25 14:55 Q6H PRN NAUSEA OR VOMITING Protocol Sennosides 2 tab 12/18/24 14:56 Senna Tablet PO 01/17/25 14:55 BID PRN CONSTIPATION Protocol Sodium Chloride 3 ml 12/18/24 14:05 Sodium Chloride Rt Anastasiya 0.9% 3 Ml Nebu INH 01/17/25 14:04 PRN PRN SOLN Plan 69-year-old male with a past medical history of hypertension, and reactive airway disease who presented to the ER complaining of being unable to sleep, wheezing and shortness of breath. Patient has a past medical history of valley fever, was treated in November 2023 with fluconazole as well as recently found to have cocci serology positive and was started prior terconazole by patient's infectious specialist Dr. Lynch in [place]. Of note patient stated that he does not have a prior diagnosis of asthma or COPD but does develop respiratory symptoms whenever he visits his son in [place]. Patient was discharged from hospital couple days ago following a diagnosis of cocci pneumonia on itraconazole, at time of evaluation in the ER the patient is in respiratory distress, received hour-long nebulization in the ER, and IV steroids, patient denied having any fever, endorsed cough?nonproductive, throat discomfort secondary to frequent coughing, being unable to sleep due to respiratory distress. Denied chest pain or pressure, fever, lower limb edema. The patient reported that the only time he feels better is when he gets steroids, but there is concern of flareup of valley fever if given steroids during active coccidiomycosis infection. Of note patient had a negative workup for tuberculosis during prior admit. Initial imaging shows hyperexpanded lung reeves likely previously undiagnosed obstructive airway disease, currently physical exam pertinent for wheezing and basal crackles, more in the right side compared to left. Initial labs pertinent for polycythemia as well as lactic acidosis, noted uptrending lactic acidosis, likely following repeat nebulizations, possible type B lactic acidosis. Also noted troponin elevation. Will trend troponins. #Type II NSTEMI ? Noted troponin elevation, likely type II UT, patient denied any active chest pain, trended troponins until peaked. ? Ordered stat EKG, no acute ST changes, shows sinus tachycardia ? Reports no chest discomfort , says he felt some chest discomfort while nebulization with budesonide, troponins plateued, will stop further troponin cheks as pt is asymtomatic. and reports no active chest symptoms, wheezing is improved, Lactic acid normalized following iv fluids and discontinuing nebulizations with albuterol. stable vitals. #Lactic acidosis, likely type B - now resolved. ? Lactic acidosis on admission, uptrending lactic acid 5.1, following hour-long nebulization, possible type B lactic acidosis, as the patient denied having fever and does not have leukocytosis, stable vitals on admission. ? Will trend lactic acid, received IV fluid bolus in the ER, will continue IV fluids boluses as needed. ? Will switch DuoNebs to levalbuterol /ipratropium/budesonide #Acute hypoxic respiratory failure - improving #Concern for HCAP ? Patient had respiratory distress, following recent hospital admission, Meets criteria for HCAP, chest x-ray shows bronchitis pattern. Will get chest CT for better imaging, as patient has fairly localized wheezing, localized to the right chest, unusual for obstructive airway disease, ? Follow blood cultures, sputum cultures, Legionella antigen, RSV, influenza and COVID ? IV cefepime 2 g every 8 hours started 12/18? ? IV doxycycline 100 mg every 12 hours started 12/18? #Possible obstructive airway disease/COPD ? Chest x-ray shows hyperinflated lungs, patient denied having a history of COPD or asthma, possible undiagnosed COPD, obstructive versus reactive airway disease. Unfortunately we do not have pulmonary function tests available at this hospital, will continue to manage empirically based on physical exam and clinical sign. ? Will switch DuoNebs to levalbuterol /ipratropium/budesonide, due to concern for type a lactic acidosis ? Received IV steroid in the emergency room, methylprednisone 125 mg x 1, will reevaluate tomorrow if need for repeat steroids, due to concern for active coccidiomycosis will be cautious given steroids, but patient reports the only time he felt better during the previous healthcare encounters was when he got steroids. ? Spoke to Dr Rutherford, about steroid use, as patient has possible COPD, and iv steroids led to rapid symptomatic improvement, per Dr Rutherford as long as pt is on treatment fro Cocci with itraconazole, short course of steroids is reasonable. will order medrol dose anjelica on discharge. #Pulmonary coccidiomycosis ? Follows Dr. Lynch infectious specialist in [place], who started him on itraconazole, as patient was unable to tolerate fluconazole for pulmonary coccidiomycosis and treatment was terminated after 3 months in January 2024., On repeat testing during previous hospitalization, positive serology for coccidiomycosis, was started on itraconazole. ? Itraconazole 200 mg twice daily #Hyperbilirubinemia ? Noted persistently elevated T. bili following starting antifungals, possibly drug adverse event, patient has denied any right upper quadrant abdominal pain, normal ALT AST and alk phos, do not suspect he has any gallbladder disease at the moment. ? Continue to trend liver enzymes #Polycythemia ? Noted polycythemia, on admission hemoglobin 16.1, possibly hemoconcentration due to dehydration vs polycythemia secondary to COPD. ? Will continue to monitor #Hypertension ?Continue home medications amlodipine and losartan ? IV hydralazine 10 mg for SBP more than 170 Disposition: Med tele, DME required; nebulizer, oxygen on discharge DVT prophylaxis: Heparin subcut GI prophylaxis: None Diet: Low-sodium Lines: PIV CODE STATUS: Full Plan of care discussed no attending Dr. Jodi Monique PGY2 Attending Provider Attestation/Addendum I, Vida Zapata, DO, attest that I was physically present for the chicas portions of the service and evaluated the patient with the resident and I reviewed and discussed the case with the resident and agree with the resident's findings and plans of care as documented above Patient seen and evaluated this afternoon in the ED. He states he is feeling improved after receiving breathing treatments. Will continue with breathing treatments at this time. And titrate O2 as tolerated. He reported some chest tightness earlier. However, troponins have plateaued. Will obtain echo. EKG does not show any ST or T wave changes.
--- NOTE | 2024-12-19 13:52 | PC.SS ---
Nebulizer Patient requires nebulizer with DuoNeb for COPD.
--- NOTE | 2024-12-19 13:52 | PC.CC ---
Call from [facility], requesting bedside RN to complete O2 road test. ASW spoke with pts bedside RN Aaron to request road test @ rest w/ and w/o 02 and on exertion w/ and w/o O2.
--- NOTE | 2024-12-19 14:54 | PC.SS ---
SS was informed by physician residents pt is requiring a nebulizer. has sent nebulizer DME order to [facility]. Pt is established with [facility].
[2024-12-19] MEDS: CEFEPIME INJ 2 GM in SODIUM CHLORIDE 0.9% 50 ML IV (23:39)
[2024-12-20] VITALS (13 sets, daily range): BP systolic 122–142; BP diastolic 72–80; PULSE 60–83; RESP 13–93; TEMP 36.3–37.5; O2SAT 94–100
[2024-12-20] MEDS: IPRATROPIUM RT 0.5 MG/ 2.5 ML NEBU INH ×4 (00:36→21:25)
[2024-12-20] MEDS: LEVALBUTEROL RT 0.63 MG/3 ML NEBU INH ×4 (00:36→21:25)
[2024-12-20] MEDS: CEFEPIME INJ 2 GM in SODIUM CHLORIDE 0.9% 50 ML IV (05:00)
[2024-12-20 05:25] LABS: Basophils % (Auto) 0 % (0-2.5); Eosinophils % (Auto) 0 % (0-10); Hematocrit 39.2 % (41.0-53.0); Hemoglobin 13.8 g/dL (13.5-16.0); Immature Granulocytes % (Auto) 0 % (0-0); Immature Granulocytes Auto 0.06 Thou/mm3 (0.00-0.00); Lymphocytes # (Auto) 0.9 Thou/mm3 (1.0-4.8); Lymphocytes % (Auto) 5 % (10-50); Mean Corpuscular HGB Conc 35.2 g/dl (31.0-37.0); Mean Corpuscular Hemoglobin 30.5 pg (25.0-35.0); Mean Corpuscular Volume 87 fL (80-100); Monocytes # (Auto) 0.5 Thou/mm3 (0.0-0.8); Monocytes % (Auto) 3 % (0-12); Neutrophils # (Auto) 16.4 Thou/mm3 (1.8-7.7); Neutrophils % (Auto) 92 % (37-80); Nucleated Red Blood Cell % 0 /100 WBC (0); Platelet Count 164 Thou/mm3 (140-440); RDW Standard Deviation 39.2 fL (35.1-43.9); Red Blood Count 4.52 Miln/mm3 (4.50-5.90); White Blood Count 17.8 Thou/mm3 (3.8-10.6)
[2024-12-20] MEDS: BUDESONIDE RT 0.5 MG/2 ML NEBU INH ×2 (06:15→21:25)
[2024-12-20 07:25] LABS: Anion Gap 6 (7-16); BUN/Creatinine Ratio 21 Ratio (12-20); Blood Urea Nitrogen 25 mg/dL (9-23); Calcium 9.5 mg/dL (8.3-10.6); Carbon Dioxide 23.6 mMol/L (20.0-31.0); Chloride 107 mMol/L (98-107); Creatinine (Component) 1.2 mg/dL (0.6-1.3); Estimated Creatinine Clearance 65.9 mL/min (>60); Free T4 (Free Thyroxine) 1.56 ng/dL (0.89-1.76); Glucose 127 mg/dL (74-106); Osmolality,Calculated 280 (275-295); Potassium 4.6 mMol/L (3.4-5.1); Sodium 137 mMol/L (136-145); eGFR > 60 See Note
--- NOTE | 2024-12-20 08:53 | PC.NURSE ---
[facility] downtime occurred on 12/20/24 from 0100 to 0700.
[2024-12-20] MEDS: DOXYCYCLINE INJ 100 MG in SODIUM CHLORIDE 0.9% (P) 100 ML IV ×2 (09:43→20:19)
[2024-12-20] MEDS: amLODIPine BESYLATE 5 MG TABLET PO (09:43)
[2024-12-20] MEDS: ITRACONAZOLE 100 MG 200 MG PO ×2 (09:44→20:18)
[2024-12-20] MEDS: LOSARTAN POTASSIUM 25 MG TABLET 50 MG PO (09:44)
--- NOTE | 2024-12-20 10:29 | PC.SS ---
SS update: Spoke with Lay at [facility] D[facility] in regards to patient not qualifying for home O2, however being a current re-admit for similar reasons when returning home. [facility] advised to send DME referral for an overnight oximetry test to be completed. SS faxed referral.
--- NOTE | 2024-12-20 10:45 | EKG_ITS ---
[facility] Test Date: 2024-12-20 Pat Name: LYNDA CHAMORRO Department: Room: [facility] Gender: Male Payroll Representative: DANA : 1955 Requested By: Chun Schwartz Order Number: [id number] Reading MD: Chun Schwartz Measurements Intervals [place] Rate: 72 P: 64 DC: 145 QRS: 42 QRSD: 101 T: 72 QT: 377 QTc: 415 Interpretive Statements SINUS RHYTHM Compared to ECG 12/18/2024 17:36:57 Sinus tachycardia no longer present /store/S0/[id number]
--- NOTE | 2024-12-20 11:17 | PC.NURSE ---
pet care technician called and stated that hi is having inverted P wave. Assess patient inside the room,resting on his bed, denies any chest pain, SOB, dizziness. MD notifed.
--- NOTE | 2024-12-20 11:22 | PC.NURSE ---
Patient's O2 sat at rest on room air is 96%, while walking on room air patient's O2 sat is 94%.
--- NOTE | 2024-12-20 13:46 | ESPR_ITS ---
Documentation for date of: 12/20/24 Senior resident attestation: Patient evaluated and examined at the bedside, plan of care discussed with rest of the team including my attending physician, except as noted. Quresh PGY2 Subjective Subjective Interval history: Patient seen today at the bedside fine awake, alert, oriented x 3. No overnight events reported. States no active complaints at this time. Patient has had previous admissions for increased troponins, cardiology Dr. Pardo was consulted, pending recommendations. Patient however does not complain of any chest pain. Will continue current antibiotic regimen with cefepime and doxycycline. Exam Vital Signs Temp Pulse Resp BP Pulse Ox O2 Del Method O2 Flow Rate 98.1 F 78 21 H 142/80 H 99 Room Air 2 12/20/24 11:36 12/20/24 12:48 12/20/24 12:48 12/20/24 11:36 12/20/24 12:48 12/20/24 11:36 12/20/24 06:15 Narrative Exam Physical Exam GENERAL: NAD, AAOx3 HEENT: Moist mucosa. Eyes open, symmetrical, & clear CARDIO: Heart RRR, no obvious murmurs PULM: No noted coughing, minimal wheezing bilaterally GI: Abdomen soft, nondistended, no pain on palpation. BSx4 SKIN/MSK/EXT: No wounds/rashes/edema/amputations, no pain on palpation. Pedal pulses present B/L NEURO: AAOx3, no focal neuro deficits, able to move all 4 extremities Objective Labs 12/21/24 04:50 12/21/24 04:50 Labs: Laboratory Results - last 24 hr 12/20/24 04:58 WBC 17.8 H D RBC 4.52 Hgb 13.8 Hct 39.2 L MCV 87 MCH 30.5 MCHC 35.2 RDW Std Deviation 39.2 Plt Count 164 Neut % (Auto) 92 H Lymph % (Auto) 5 L [place] % (Auto) 3 Eos % (Auto) 0 Baso % (Auto) 0 Neut # (Auto) 16.4 H Lymph # (Auto) 0.9 L [place] # (Auto) 0.5 Eos # (Auto) 0.0 Baso # (Auto) 0.0 Immature Gran # (Auto) 0.06 H Absolute Nucleated RBC 0.00 Immature Gran % 0 Nucleated RBC % 0 Sodium 137 Potassium 4.6 Chloride 107 Carbon Dioxide 23.6 Anion Gap 6 L BUN 25 H Creatinine 1.2 Estim Creat Clear Calc 65.9 eGFR > 60 BUN/Creatinine Ratio 21 H Glucose 127 H Calculated Osmolality 280 Calcium 9.5 Free T4 1.56 ABG Interpretation ABG results: 12/18/24 12/19/24 11:04 02:15 ABG pH 7.39 ABG pCO2 37 ABG pO2 108 ABG HCO3 23 ABG O2 Saturation 99 H ABG Base Excess -2 VBG pH 7.39 VBG pCO2 39 VBG pO2 50 VBG Base Excess -1 Quality Measures Quality Measures none Advance care planning discussed with:: patient Assessment & Plan Assessment Current Active Medications: Generic Name Dose Route Start Last Admin Trade Name Freq PRN Reason Stop Dose Admin Acetaminophen 650 mg 12/18/24 14:56 Acetaminophen 325 Mg Tablet PO 01/17/25 14:55 Q6H PRN PAIN OR FEVER > 101 Amlodipine Besylate 5 mg 12/19/24 09:00 12/20/24 09:43 Amlodipine Besylate 5 Mg Tablet PO 01/18/25 08:59 5 mg QDAY GRAYSON Administration Budesonide 0.5 mg 12/18/24 19:00 12/20/24 06:15 Budesonide Rt 0.5 Mg/2 Ml Nebu INH 01/17/25 18:59 0.5 mg BIDRT GRAYSON Administration Heparin Sodium (Porcine) 5,000 unit 12/18/24 21:00 12/20/24 09:44 Heparin Sod Inj 5000 Unit/Ml Vial SC 01/01/25 20:59 Not Given Q12HR GRAYSON Hydralazine HCl 10 mg 12/18/24 15:05 Hydralazine Inj 20 Mg/Ml Vial IV 01/17/25 15:04 Q6HR PRN SBP > 170 Doxycycline Hyclate 100 mg/ 100 mls @ 100 mls/hr 12/18/24 15:00 12/20/24 09:43 Sodium Chloride IV 12/25/24 14:59 100 mls/hr BID GRAYSON Administration Cefepime HCl 2 gm/ Sodium 50 mls @ 100 mls/hr 12/20/24 13:15 Chloride IV 12/26/24 22:59 Q8HR GRAYSON Ipratropium [place] 0.5 mg 12/18/24 19:00 12/20/24 12:46 Ipratropium Rt 0.5 Mg/ 2.5 Ml Nebu INH 01/17/25 18:59 0.5 mg Q6HRRT GRAYSON Administration Itraconazole 200 mg 12/19/24 09:00 12/20/24 09:44 Itraconazole 100 Mg Capsule (Non-Formulary) PO 12/26/24 08:59 200 mg QDAY GRAYSON Administration Levalbuterol HCl 0.63 mg 12/18/24 18:00 12/20/24 12:46 Levalbuterol Rt 0.63 Mg/3 Ml Nebu INH 01/17/25 17:59 0.63 mg Q6HRRT GRAYSON Administration Losartan Potassium 50 mg 12/19/24 09:00 12/20/24 09:44 Losartan Potassium 25 Mg Tablet PO 01/18/25 08:59 50 mg QDAY GRAYSON Administration Ondansetron HCl 4 mg 12/18/24 14:56 Ondansetron Inj 2 Mg/Ml Inj 2 Ml IV 01/17/25 14:55 Q6H PRN NAUSEA OR VOMITING Protocol Sennosides 2 tab 12/18/24 14:56 Senna Tablet PO 01/17/25 14:55 BID PRN CONSTIPATION Protocol Sodium Chloride 3 ml 12/18/24 14:05 Sodium Chloride Rt Anastasiya 0.9% 3 Ml Nebu INH 01/17/25 14:04 PRN PRN SOLN Plan 69-year-old male with a past medical history of hypertension, and reactive airway disease who presented to the ER complaining of being unable to sleep, wheezing and shortness of breath. Patient has a past medical history of valley fever, was treated in November 2023 with fluconazole as well as recently found to have cocci serology positive and was started prior terconazole by patient's infectious specialist Dr. Lynch in [place]. Of note patient stated that he does not have a prior diagnosis of asthma or COPD but does develop respiratory symptoms whenever he visits his son in [place]. Patient was discharged from hospital couple days ago following a diagnosis of cocci pneumonia on itraconazole, at time of evaluation in the ER the patient is in respiratory distress, received hour-long nebulization in the ER, and IV steroids, patient denied having any fever, endorsed cough?nonproductive, throat discomfort secondary to frequent coughing, being unable to sleep due to respiratory distress. Denied chest pain or pressure, fever, lower limb edema. The patient reported that the only time he feels better is when he gets steroids, but there is concern of flareup of valley fever if given steroids during active coccidiomycosis infection. Of note patient had a negative workup for tuberculosis during prior admit. Initial imaging shows hyperexpanded lung reeves likely previously undiagnosed obstructive airway disease, currently physical exam pertinent for wheezing and basal crackles, more in the right side compared to left. Initial labs pertinent for polycythemia as well as lactic acidosis, noted uptrending lactic acidosis, likely following repeat nebulizations, possible type B lactic acidosis. Also noted troponin elevation. Will trend troponins. #Acute hypoxic respiratory failure - improving #Concern for HCAP #Pulmonary coccidiomycosis Patient had respiratory distress, following recent hospital admission, Meets criteria for HCAP, chest x-ray shows bronchitis pattern. Will get chest CT for better imaging, as patient has fairly localized wheezing, localized to the right chest, unusual for obstructive airway disease Follows Dr. Lynch infectious specialist in [place], who started him on itraconazole, as patient was unable to tolerate fluconazole for pulmonary coccidiomycosis and treatment was terminated after 3 months in January 2024., On repeat testing during previous hospitalization, positive serology for coccidiomycosis, was started on itraconazole. Blood cultures negative in 48 hours Aspergillus negative, RSV negative, influenza negative, COVID-negative -Follow-up sputum cultures -Follow-up Legionella antigen -IV cefepime 2 g every 8 hours started 12/18? -IV doxycycline 100 mg every 12 hours started 12/18? -Itraconazole 200 mg twice daily #Type II NSTEMI Noted troponin elevation, likely type II OR, patient denied any active chest pain, trended troponins until peaked. Ordered stat EKG, no acute ST changes, shows sinus tachycardia Reports no chest discomfort , says he felt some chest discomfort while nebulization with budesonide, troponins plateued, will stop further troponin checks as pt is asymtomatic Reports no active chest symptoms, wheezing is improved, Lactic acid normalized following iv fluids and discontinuing nebulizations with albuterol. stable vitals. -Cardiology Dr. Pardo consulted, appreciate recommendations -Keep potassium above 4, magnesium above 2 #Possible obstructive airway disease/COPD Chest x-ray shows hyperinflated lungs, patient denied having a history of COPD or asthma, possible undiagnosed COPD, obstructive versus reactive airway disease. Unfortunately we do not have pulmonary function tests available at this hospital, will continue to manage empirically based on physical exam and clinical sign. Received IV steroid in the emergency room, methylprednisone 125 mg x 1, will reevaluate tomorrow if need for repeat steroids, due to concern for active coccidiomycosis will be cautious given steroids, but patient reports the only time he felt better during the previous healthcare encounters was when he got steroids. ? Will switch DuoNebs to levalbuterol /ipratropium/budesonide, due to concern for type a lactic acidosis ? Spoke to Dr Rutherford, about steroid use, as patient has possible COPD, and iv steroids led to rapid symptomatic improvement, per Dr Rutherford as long as pt is on treatment fro Cocci with itraconazole, short course of steroids is reasonable. will order medrol dose anjelica on discharge. #Lactic acidosis, likely type B-resolved. #Hyperbilirubinemia Noted persistently elevated T. bili following starting antifungals, possibly drug adverse event, patient has denied any right upper quadrant abdominal pain, normal ALT AST and alk phos, do not suspect he has any gallbladder disease at the moment. ? Continue to trend liver enzymes #Polycythemia ? Noted polycythemia, on admission hemoglobin 16.1, possibly hemoconcentration due to dehydration vs polycythemia secondary to COPD. ? Will continue to monitor #Hypertension ?Continue home medications amlodipine and losartan ? IV hydralazine 10 mg for SBP more than 170 Case discussed with my senior Dr. Monique PGY-[address] Jodi Schwartz MD PGY-1 Disposition: Med telemetry Fluids: None Feeding: Low-sodium Thrombo prophylaxis: Heparin Gastric Ulcer prophylaxis: None CODE STATUS: Full code Senior resident attestation: Patient is 69-year-old male, recently admitted for acute hypoxic respiratory failure and workup of cavitary lung lesion, diagnosed with pulmonary coccidiomycosis and started on itraconazole per patient's infectious specialist Dr. Rutherford also has likely undiagnosed COPD, responding to steroid therapy, spoke to Dr. Rutherford who agrees with the rationale of starting short-term steroids as long as patient is on appropriate antifungal treatment for coccidiomycosis. Patient was also describing chest discomfort and workup showed elevated troponin levels, has no history of cardiac disorders, and has never been worked up for coronary artery disease, given elevated troponin levels, cardiology consult was placed, pending cardiology recommendations. Patient evaluated and examined at the bedside, plan of care discussed with rest of the team including my attending physician, except as noted. Quresh PGY2 Attending Provider Attestation/Addendum Vida Munoz DO, attest that I was physically present for the chicas portions of the service and evaluated the patient with the resident and I reviewed and discussed the case with the resident and agree with the resident's findings and plans of care as documented above Patient seen and evaluated this AM. Patient states he is feeling well and has been ambulating in hallway on room air without any dyspnea. Patient Denies any active chest pain today. Pending cardio evaluation given patient's detectable troponins. He denies any family history of cardiac disease. Will follow-up with cardiology recommendations. Anticipate discharge within the next 24 hours. Will continue with breathing treatments at this time. Patient has refused received his nebulizer at bedside.
[2024-12-20] MEDS: CEFEPIME INJ 2 GM in SODIUM CHLORIDE 0.9% (P) 50 ML IV ×2 (13:48→22:14)
--- NOTE | 2024-12-20 19:25 | PC.NURSE ---
Addendum entered by Jorge Palacios RN 12/20/24 20:06: Per. Dr. Abarca sporanax 200mg switched from 1x/day to 2x/day. Addendum entered by Jorge Palacios RN 12/20/24 19:35: ROSE Patel spoke to Dr. Abarca about the patients questions about sporanax 200mg 2x day. Dr. Abarca said she will look into it. Original Note: Pt. stated that he takes sporanax 200mg PO 2x day. On the JAN it is set to 1x day at 0900. ROSE Patel will call hospitalists to verify order.
--- NOTE | 2024-12-20 19:26 | ESCONSULT_ITS ---
<Statement entered by Fracisco Pardo MD - 12/21/24 06:25> I have personally seen and examined the patient separately on the above date of service and discussed the plan of care with the resident. I reviewed the resident Dr. Ramachandran consultation progress note and agree with the resident findings and plan in the note above and have also edited the documentation to reflect my findings and plan. 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 Patient has been not doing well for the past few months since a diagnosis of valley fever and had recurrent admissions for the same. Patient has been having some reactive airway disease and was given recently Z-Floyd along with steroids. Patient had a history of valley fever which was treated with hydrocortisone and TB workup was negative and was diagnosed with coccidiomycosis for which he did get treatment for 3 months and follows with ID in [place] Dr. Rutherford. Apparently he had Atrial fibrillation speech improved after the treatment but has been having the recurrent shortness of breath and wheezing recently. Cardiology was consulted as the patient is having mildly elevated troponins at 0.131, rest of the labs showed BUN of 17 and creatinine of 1.3 and WBC count elevated at 12.1. Chest CTA showed 3.1 x 1.8 cm cavitated lesion is in the left upper lobe. Repeat troponin was downtrending from 0.131. EKG showed sinus tachycardia without any acute ST-T changes. Assessment and plan: 1. Elevated troponins-NSTEMI type II in the setting of supply/demand mismatch active infection 2. Acute hypoxic respiratory failure mostly secondary to coccidiomycosis and HCAP 3. History of valley fever or pulmonary coccidiomycosis 4. Essential hypertension 5. Possible obstructive airway disease 6. Questionable polycythemia 7. Obesity and possible FRANKO Patient does not complain of any major chest pain or chest pressure since admission and his major complaint shortness of breath which has been worsening since his diagnosis of valley fever or coccidiomycosis. Troponins peaked at 0.131 and EKG did not show any acute ST-T changes. An echocardiogram was ordered to rule out regional wall motion abnormalities. The troponin elevation is mostly secondary to NSTEMI type II in the setting of supply/demand mismatch from the active infection. Recommend only aspirin statin and beta-alton for now. No need of any heparin drip. Check TSH A1c and lipid profile for further cardiac risk stratification and follow-up on echo results. If the echo is completely normal then patient should continue further ischemic workup as outpatient once he is appropriately treated for his infection. Patient recommended to follow-up in the office after the discharge. Patient's blood pressure appears to be adequately controlled and continue amlodipine and losartan for now and continue to uptitrate as needed. Management of rest of the medical conditions as per primary team and other consultants. Thank you for the consult and allowing me to participate in the care of the patient. Cardiology will continue to follow. Fracisco Pardo M.D. Interventional Cardiology HPI Data of Consult Requesting Physician: Vida Zapata DO Admitting Provider: Veronica Turcios MD Attending Provider: Vida Zapata DO Primary Care Provider: Jarrell Smith MD Consult Narrative History of present illness: Pradeep is a 69 y/o male with PMHx of hypertension, valley fever (treated with fluconazole for 3 months, sees Dr. Rutherford infectious disease in [place]),? Reactive airway disease comes for an evaluation of insomnia, wheezing, shortness of breath. Patient reports that he has been in and out of the hospital. He reports that he came to the hospital 3 times, the first time he came to the ER with sentiment and was given Z-Floyd and steroids. Close following time he was admitted in the hospital for 5 days and was discharged and was being treated for valley fever given itraconazole, negative TB workup, still shows IgM for cocci. This time he felt that his respirations were being worse despite having treatment the past couple of times. Notes that his respiratory symptoms to help with nebulizer treatments and steroids, however he does not know why that he keeps going back to the hospital. He says he has been seeing Dr. Rutherford's infectious disease specialist for his valley fever. He says that he had initial cavitary type mass in the past that has reduced in size after being treated for valley fever. Denies having any heart history, seeing a bacon skinner, having heart attack history or having a cardiac cath. Has not seen a pyrotechnician before. Was referred to some possible oncologist who did a couple of scans in said everything was fine. Used to have a CPAP but could not tolerate it and does not use it anymore. ED course Arrived afebrile, BP 208/99, pulse of 75, respiratory rate 20, oxygen saturation 96 on 4 L nasal cannula. He was worked up and was found to have a white count 12.1, hemoglobin 16.2, BUN/creatinine 17 and Cr 1.3, BNP 22 and procalc 0.08. Chest CTA showed 3.1 x 1.8 cavitated lesion in left upper lobe (seen on previous imaging), x-ray did not show any significant infiltrates. He was also giving nebulization treatments, Rocephin and 40 Lasix. Past medical history: As above Surgeries: Tonsillectomy in his youth Allergies: Codeine Meds: Itraconazole amlodipine 5, losartan 50, DuoNebs as needed Family history: No history of open heart surgery, stents or heart attacks Social history: No smoking history no significant alcohol history no drug history. cc:: cc: Vida Zapata DO Review of Systems Review of Systems Narrative Review of Systems: 12 point ROS is otherwise negative unless directly stated in the HPI Exam Vital Signs Temp Pulse Resp BP Pulse Ox O2 Del Method O2 Flow Rate 99.5 F 60 13 122/72 94 L Room Air 2 12/20/24 16:00 12/20/24 16:00 12/20/24 16:00 12/20/24 16:00 12/20/24 16:00 12/20/24 16:00 12/20/24 06:15 Narrative Exam General: AAOx3, NAD, HEENT: Moist mucous membranes, conjunctiva clear, EOMI, PERRLA, Cardiovascular: S1, S2, radial pulses +2 bilat, RRR Pulmonary: CTAB bilat no cough, no wheezing GI: No tenderness to light or deep palpitation, no guarding, rigidity, rebound tenderness or distension Extremities: No presence of trace or pitting edema in lower extremities bilaterally, dorsalis pedis pulses +2 bilaterally Neuro: AAOx3, no focal motor or sensory deficits in the UE or LE bilat Psych: Good judgement, thought and behavior. Cooperative Results Labs 12/20/24 04:58 12/20/24 04:58 Labs: Short CBC 12/20/24 Range/Units 04:58 WBC 17.8 H D (3.8-10.6) Thou/mm3 Hgb 13.8 (13.5-16.0) g/dL Hct 39.2 L (41.0-53.0) % Plt Count 164 (140-440) Thou/mm3 [facility] 12/20/24 04:58 Sodium 137 Potassium 4.6 Chloride 107 Carbon Dioxide 23.6 BUN 25 H Creatinine 1.2 Glucose 127 H Calcium 9.5 ABG Interpretation ABG results: 12/18/24 12/19/24 11:04 02:15 ABG pH 7.39 ABG pCO2 37 ABG pO2 108 ABG HCO3 23 ABG O2 Saturation 99 H ABG Base Excess -2 VBG pH 7.39 VBG pCO2 39 VBG pO2 50 VBG Base Excess -1 Quality Measures Quality Measures none Advance care planning discussed with:: patient Medications Home Medications and Allergies Home Medications ?Medication ?Instructions ?Recorded ?Confirmed ?Type amlodipine 10 mg tablet 5 mg PO DAILY 11/28/2312/19 History losartan 50 mg tablet 50 mg PO DAILY 11/28/2311/24 History ergocalciferol (vitamin D2) 25,000 50,000 unit PO QWEE K 12/19/24 12/19/24 History unit capsule Allergies Allergy/AdvReac Type Severity Reaction Status Date / Time codeine Allergy Severe THROAT Verified 11/28/23 20:17 SWELLS, RASH Visit Medications Acetaminophen (Acetaminophen 325 Mg Tablet) 650 mg PO Q6H PRN PRN Reason: PAIN OR FEVER > 101 Stop: 01/17/25 14:55 Amlodipine Besylate (Amlodipine Besylate 5 Mg Tablet) 5 mg PO QDAY GRAYSON Stop: 01/18/25 08:59 Last Admin: 12/20/24 09:43 Dose: 5 mg Budesonide (Budesonide Rt 0.5 Mg/2 Ml Nebu) 0.5 mg INH BIDRT GRAYSON Stop: 01/17/25 18:59 Last Admin: 12/20/24 06:15 Dose: 0.5 mg Heparin Sodium (Porcine) (Heparin Sod Inj 5000 Unit/Ml Vial) 5,000 unit SC Q12HR GRAYSON Stop: 01/01/25 20:59 Last Admin: 12/20/24 09:44 Dose: Not Given Hydralazine HCl (Hydralazine Inj 20 Mg/Ml Vial) 10 mg IV Q6HR PRN PRN Reason: SBP > 170 Stop: 01/17/25 15:04 Doxycycline Hyclate 100 mg/ (Sodium Chloride) 100 mls @ 100 mls/hr IV BID [facility] Stop: 12/25/24 14:59 Last Admin: 12/20/24 09:43 Dose: 100 mls/hr Cefepime HCl 2 gm/ Sodium (Chloride) 50 mls @ 100 mls/hr IV Q8HR [facility] Stop: 12/26/24 22:59 Last Admin: 12/20/24 13:48 Dose: 100 mls/hr Ipratropium Alpine (Ipratropium Rt 0.5 Mg/ 2.5 Ml Nebu) 0.5 mg INH Q6HRRT [facility] Stop: 01/17/25 18:59 Last Admin: 12/20/24 12:46 Dose: 0.5 mg Itraconazole (Itraconazole 100 Mg Capsule (Non-Formulary)) 200 mg PO QDAY [facility] Stop: 12/26/24 08:59 Last Admin: 12/20/24 09:44 Dose: 200 mg Levalbuterol HCl (Levalbuterol Rt 0.63 Mg/3 Ml Nebu) 0.63 mg INH Q6HRRT [facility] Stop: 01/17/25 17:59 Last Admin: 12/20/24 12:46 Dose: 0.63 mg Losartan Potassium (Losartan Potassium 25 Mg Tablet) 50 mg PO QDAY [facility] Stop: 01/18/25 08:59 Last Admin: 12/20/24 09:44 Dose: 50 mg Ondansetron HCl (Ondansetron Inj 2 Mg/Ml Inj 2 Ml) 4 mg IV Q6H PRN; Protocol PRN Reason: NAUSEA OR VOMITING Stop: 01/17/25 14:55 Sennosides (Senna Tablet) 2 tab PO BID PRN; Protocol PRN Reason: CONSTIPATION Stop: 01/17/25 14:55 Sodium Chloride (Sodium Chloride Rt Anastasiya 0.9% 3 Ml Nebu) 3 ml INH PRN PRN PRN Reason: SOLN Stop: 01/17/25 14:04 Discontinued Medications Albuterol (Albuterol Rt 2.5 Mg/0.5 Ml Nebu) 10 mg INH X1 ONE Stop: 12/18/24 09:49 Last Admin: 12/18/24 10:01 Dose: 10 mg Albuterol (Albuterol Rt 2.5 Mg/0.5 Ml Nebu) 10 mg INH X1 ONE Stop: 12/18/24 14:06 Last Admin: 12/18/24 14:18 Dose: 10 mg Sodium Chloride (Ns) 500 mls @ 999 mls/hr IV .Q31M ONE Stop: 12/18/24 15:05 Last Infusion: 12/18/24 16:38 Dose: Infused Sodium Chloride (Ns) 1,000 mls @ 250 mls/hr IV .Q4H ONE Stop: 12/18/24 19:00 Last Infusion: 12/18/24 19:45 Dose: Infused Cefepime HCl 2 gm/ Sodium (Chloride) 50 mls @ 100 mls/hr IV Q8HR [facility] Stop: 12/25/24 22:59 Last Admin: 12/20/24 05:00 Dose: 100 mls/hr Cefepime HCl 2 gm/ Sodium (Chloride) 50 mls @ 100 mls/hr IV X1 ONE Stop: 12/18/24 15:44 Last Infusion: 12/18/24 19:45 Dose: Infused Lactated Ringer's (Lactated Ringers) 1,000 mls @ 999 mls/hr IV .Q1H1M ONE Stop: 12/18/24 18:07 Last Infusion: 12/18/24 19:45 Dose: Infused Sodium Chloride (Ns) 1,000 mls @ 999 mls/hr IV .Q1H1M ONE Stop: 12/18/24 16:01 Last Infusion: 12/18/24 19:45 Dose: Infused Cefepime HCl 2 gm/ Sodium (Chloride) 50 mls @ 100 mls/hr IV Q8HR [facility] Stop: 12/19/24 06:29 Last Infusion: 12/19/24 06:00 Dose: Infused Cefepime HCl 2 gm/ Sodium (Chloride) 50 mls @ 100 mls/hr IV X1 ONE Stop: 12/19/24 15:59 Last Infusion: 12/19/24 16:50 Dose: Infused Ipratropium Alpine (Ipratropium Rt 0.5 Mg/ 2.5 Ml Nebu) 0.5 mg INH X1 ONE Stop: 12/18/24 09:49 Last Admin: 12/18/24 10:01 Dose: 0.5 mg Methylprednisolone Sodium Succinate (Methylprednisolone Sod Succ 62.5 Mg/Ml 2ml Vial) 125 mg IVP X1 ONE Stop: 12/18/24 09:49 Last Admin: 12/18/24 10:28 Dose: 125 mg Sodium Chloride (Sodium Chloride Rt 10% 15 Ml Nebu) 5 ml INH X1 ONE Stop: 12/18/24 15:15 Last Admin: 12/19/24 01:54 Dose: Not Given Assessment & Plan Plan Assessment Pradeep is a 69 y/o male with PMHx of hypertension, valley fever (treated with fluconazole for 3 months, sees Dr. Rutherford infectious disease in [place]),? Reactive airway disease who is currently admitted for hypoxic respiratory failure secondary to valley fever #NSTEMI type II, likely secondary to demand ischemia, resolved #History of hypertension Troponin peaking at 0.131, no need to trend any more Patient likely had some troponin leak due to having respiratory failure secondary to valley fever Plan: ? Continue home medications amlodipine and losartan ? IV hydralazine 10 mg for SBP more than 170 started by primary team ? Continue keeping magnesium potassium over 2 and 4 respectively to avoid any cardiac arrhythmias #Acute hypoxic respiratory failure - improving #Concern for HCAP #Pulmonary coccidiomycosis #Possible obstructive airway disease/COPD #Lactic acidosis, likely type B-resolved. #Hyperbilirubinemia #Polycythemia #History of FRANKO, does not use CPAP Above managed by primary hospitalist team Patient seen and care discussed with my senior resident, , and my attending physician, Dr. Duarte Guevara, PGY-1
[2024-12-21] VITALS (9 sets, daily range): BP systolic 128–173; BP diastolic 58–80; PULSE 60–84; RESP 17–98; TEMP 36.6–37; O2SAT 97–98
[2024-12-21] MEDS: LEVALBUTEROL RT 0.63 MG/3 ML NEBU INH ×2 (01:31→07:39)
[2024-12-21] MEDS: IPRATROPIUM RT 0.5 MG/ 2.5 ML NEBU INH ×2 (01:31→07:39)
[2024-12-21] MEDS: CEFEPIME INJ 2 GM in SODIUM CHLORIDE 0.9% (P) 50 ML IV (05:24)
[2024-12-21] MEDS: MUPIROCIN OINT 2% 15 GM TUBE TOP (06:19)
[2024-12-21 06:41] LABS: Basophils % (Auto) 0 % (0-2.5); Eosinophils % (Auto) 0 % (0-10); Hematocrit 39.9 % (41.0-53.0); Hemoglobin 13.9 g/dL (13.5-16.0); Immature Granulocytes % (Auto) 0 % (0-0); Immature Granulocytes Auto 0.02 Thou/mm3 (0.00-0.00); Lymphocytes # (Auto) 1.3 Thou/mm3 (1.0-4.8); Lymphocytes % (Auto) 12 % (10-50); Mean Corpuscular HGB Conc 34.8 g/dl (31.0-37.0); Mean Corpuscular Hemoglobin 30.6 pg (25.0-35.0); Mean Corpuscular Volume 88 fL (80-100); Monocytes # (Auto) 0.7 Thou/mm3 (0.0-0.8); Monocytes % (Auto) 7 % (0-12); Neutrophils # (Auto) 8.1 Thou/mm3 (1.8-7.7); Neutrophils % (Auto) 80 % (37-80); Nucleated Red Blood Cell % 0 /100 WBC (0); Platelet Count 139 Thou/mm3 (140-440); RDW Standard Deviation 39.2 fL (35.1-43.9); Red Blood Count 4.54 Miln/mm3 (4.50-5.90); White Blood Count 10.2 Thou/mm3 (3.8-10.6)
--- NOTE | 2024-12-21 07:11 | EKG_ITS ---
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
--- NOTE | 2024-12-21 07:11 | PC.NURSE ---
During report, pt. initially denied chest pain but then later reported discomfort in the right side of chest. Pt. states its not pain its more discomfort. pt. verablizes that it is constant. Dr. Martinez aware and order EKG stat and repeat troponin. Pt. is otherwise asymptomatic. Dr. Martinez reports pt. has been having this pain and was seen by Dr. piña yesterday.
[2024-12-21 07:17] LABS: Alanine Aminotransferase 11 U/L (10-49); Albumin, Serum 3.6 gm/dL (3.4-4.8); Albumin/Globulin Ratio 1.6 (1.2-2.2); Alkaline Phosphatase 65 U/L (46-116); Anion Gap 8 (7-16); Aspartate Amino Transferase 10 U/L (0-34); BUN/Creatinine Ratio 21 Ratio (12-20); Bilirubin,Total 1.5 mg/dL (0.3-1.2); Blood Urea Nitrogen 27 mg/dL (9-23); Calcium 9.4 mg/dL (8.3-10.6); Calcium (Corrected) 9.7 mg/dL (8.5-10.1); Carbon Dioxide 25.3 mMol/L (20.0-31.0); Chloride 106 mMol/L (98-107); Creatinine (Component) 1.3 mg/dL (0.6-1.3); Estimated Creatinine Clearance 60.8 mL/min (>60); Globulin 2.3 gm/dL (2.3-3.5); Glucose 88 mg/dL (74-106); Magnesium 2.1 mg/dL (1.6-2.6); Osmolality,Calculated 281 (275-295); Potassium 4.1 mMol/L (3.4-5.1); Procalcitonin 0.08 ng/ml (0.0-0.49); Sodium 139 mMol/L (136-145); Total Protein 5.9 gm/dL (5.7-8.2); eGFR 59 See Note
--- NOTE | 2024-12-21 07:25 | PC.NURSE ---
RT aware of stat EKG order
[2024-12-21] MEDS: BUDESONIDE RT 0.5 MG/2 ML NEBU INH (07:40)
[2024-12-21] MEDS: ITRACONAZOLE 100 MG 200 MG PO (09:30)
[2024-12-21] MEDS: LOSARTAN POTASSIUM 25 MG TABLET 50 MG PO (09:30)
[2024-12-21] MEDS: DOXYCYCLINE INJ 100 MG in SODIUM CHLORIDE 0.9% (P) 100 ML IV (09:31)
[2024-12-21] MEDS: amLODIPine BESYLATE 5 MG TABLET PO (09:31)
[2024-12-21 09:49] LABS: Troponin I 0.056 ng/mL (0.0-0.045)
--- NOTE | 2024-12-21 10:16 | PC.CC ---
CASH APPLICATIONS REPRESENTATIVE met with patient to inform of referral for Overnight Pulse Oximetry. Patient informed that [facility] will be contacting patient to deliver testing equipment for overnight test. Testing to confirm patient's need for home oxygen. CASH APPLICATIONS REPRESENTATIVE updated bedside nurse.
--- NOTE | 2024-12-21 10:17 | PC.CC ---
SEQUENCING MACHINE OPERATOR submitted referral to [facility] for overnight pulse oximetry on [facility].
--- NOTE | 2024-12-21 11:57 | PC.NURSE ---
Per Dr. Martinez pt. cleared by Cardiology to be DC now.
--- NOTE | 2024-12-21 12:20 | ESPR_ITS ---
Documentation for date of: 12/21/24 Subjective Subjective Interval history: 12/21/2024: Patient examined at bedside today. No acute over night events on telemetry. Patient reports he did have some right-sided chest pain that was transient and resolved. He is not experiencing shortness of breath or palpitations. He is EKG was done and was unremarkable. Troponin was collected which showed 0.05, previously was 0.2 and 0.16. Most likely patient had some troponin leak but this has been coming down for the coming days. Patient's BUN/creatinine today is 27 point respectively, potassium 4.1, magnesium 2.1. White count 10.2, hemoglobin 14. No other complaints at this time Exam Vital Signs Temp Pulse Resp BP Pulse Ox O2 Del Method O2 Flow Rate 97.9 F 79 20 128/80 97 Room Air 2 12/21/24 11:53 12/21/24 11:53 12/21/24 11:53 12/21/24 11:53 12/21/24 11:53 12/21/24 11:53 12/20/24 06:15 Narrative Exam General: AAOx3, NAD, HEENT: Moist mucous membranes, conjunctiva clear, EOMI, PERRLA, Cardiovascular: S1, S2, radial pulses +2 bilat, RRR Pulmonary: CTAB bilat no cough, no wheezing GI: No tenderness to light or deep palpitation, no guarding, rigidity, rebound tenderness or distension Extremities: No presence of trace or pitting edema in lower extremities bilaterally, dorsalis pedis pulses +2 bilaterally Neuro: AAOx3, no focal motor or sensory deficits in the UE or LE bilat Psych: Good judgement, thought and behavior. Cooperative Objective Labs 12/21/24 04:50 12/21/24 04:50 Labs: Laboratory Results - last 24 hr 12/21/24 12/21/24 04:50 08:26 WBC 10.2 D RBC 4.54 Hgb 13.9 Hct 39.9 L MCV 88 MCH 30.6 MCHC 34.8 RDW Std Deviation 39.2 Plt Count 139 L Neut % (Auto) 80 Lymph % (Auto) 12 Lamar % (Auto) 7 Eos % (Auto) 0 Baso % (Auto) 0 Neut # (Auto) 8.1 H Lymph # (Auto) 1.3 Lamar # (Auto) 0.7 Eos # (Auto) 0.0 Baso # (Auto) 0.0 Immature Gran # (Auto) 0.02 H Absolute Nucleated RBC 0.00 Immature Gran % 0 Nucleated RBC % 0 Sodium 139 Potassium 4.1 D Chloride 106 Carbon Dioxide 25.3 Anion Gap 8 BUN 27 H Creatinine 1.3 Estim Creat Clear Calc 60.8 L eGFR 59 L BUN/Creatinine Ratio 21 H Glucose 88 Calculated Osmolality 281 Calcium 9.4 Corrected Calcium 9.7 Magnesium 2.1 Total Bilirubin 1.5 H AST 10 ALT 11 Alkaline Phosphatase 65 Troponin I 0.056 H* Total Protein 5.9 Albumin 3.6 Globulin 2.3 Albumin/Globulin Ratio 1.6 Procalcitonin 0.08 ABG Interpretation ABG results: 12/18/24 12/19/24 11:04 02:15 ABG pH 7.39 ABG pCO2 37 ABG pO2 108 ABG HCO3 23 ABG O2 Saturation 99 H ABG Base Excess -2 VBG pH 7.39 VBG pCO2 39 VBG pO2 50 VBG Base Excess -1 Quality Measures Quality Measures none Advance care planning discussed with:: patient Assessment & Plan Assessment Current Active Medications: Generic Name Dose Route Start Last Admin Trade Name Freq PRN Reason Stop Dose Admin Acetaminophen 650 mg 12/18/24 14:56 Acetaminophen 325 Mg Tablet PO 01/17/25 14:55 Q6H PRN PAIN OR FEVER > 101 Amlodipine Besylate 5 mg 12/19/24 09:00 12/21/24 09:31 Amlodipine Besylate 5 Mg Tablet PO 01/18/25 08:59 5 mg QDAY GRAYSON Administration Budesonide 0.5 mg 12/18/24 19:00 12/21/24 07:40 Budesonide Rt 0.5 Mg/2 Ml Nebu INH 01/17/25 18:59 0.5 mg BIDRT GRAYSON Administration Heparin Sodium (Porcine) 5,000 unit 12/18/24 21:00 12/21/24 09:31 Heparin Sod Inj 5000 Unit/Ml Vial SC 01/01/25 20:59 Not Given Q12HR GRAYSON Hydralazine HCl 10 mg 12/18/24 15:05 Hydralazine Inj 20 Mg/Ml Vial IV 01/17/25 15:04 Q6HR PRN SBP > 170 Doxycycline Hyclate 100 mg/ 100 mls @ 100 mls/hr 12/18/24 15:00 12/21/24 09:31 Sodium Chloride IV 12/25/24 14:59 100 mls/hr BID GRAYSON Administration Cefepime HCl 2 gm/ Sodium 50 mls @ 100 mls/hr 12/20/24 13:15 12/21/24 05:24 Chloride IV 12/26/24 22:59 100 mls/hr Q8HR GRAYSON Administration Ipratropium Patterson 0.5 mg 12/18/24 19:00 12/21/24 07:39 Ipratropium Rt 0.5 Mg/ 2.5 Ml Nebu INH 01/17/25 18:59 0.5 mg Q6HRRT GRAYSON Administration Itraconazole 200 mg 12/20/24 21:00 12/21/24 09:30 Itraconazole 100 Mg Capsule (Non-Formulary) PO 12/27/24 20:59 200 mg BID GRAYSON Administration Levalbuterol HCl 0.63 mg 12/18/24 18:00 12/21/24 07:39 Levalbuterol Rt 0.63 Mg/3 Ml Nebu INH 01/17/25 17:59 0.63 mg Q6HRRT GRAYSON Administration Losartan Potassium 50 mg 12/19/24 09:00 12/21/24 09:30 Losartan Potassium 25 Mg Tablet PO 01/18/25 08:59 50 mg QDAY GRAYSON Administration Mupirocin 0 gm 12/21/24 06:15 12/21/24 06:19 Mupirocin Oint 2% 15 Gm Tube TOP 12/28/24 06:14 1 applicatio TID GRAYSON Administration Ondansetron HCl 4 mg 12/18/24 14:56 Ondansetron Inj 2 Mg/Ml Inj 2 Ml IV 01/17/25 14:55 Q6H PRN NAUSEA OR VOMITING Protocol Sennosides 2 tab 12/18/24 14:56 Senna Tablet PO 01/17/25 14:55 BID PRN CONSTIPATION Protocol Sodium Chloride 3 ml 12/18/24 14:05 Sodium Chloride Rt Anastasiya 0.9% 3 Ml Nebu INH 01/17/25 14:04 PRN PRN SOLN Plan Assessment Pradeep is a 69 y/o male with PMHx of hypertension, valley fever (treated with fluconazole for 3 months, sees Dr. Rutherford infectious disease in [employer]),? Reactive airway disease who is currently admitted for hypoxic respiratory failure secondary to valley fever #NSTEMI type II, likely secondary to demand ischemia, resolved #History of hypertension Troponin peaking at 0.131, troponin was checked once more today due to some chest pain .05 was the level Patient likely had some troponin leak due to having respiratory failure secondary to valley fever EKG did not show any ST changes or T wave inversions Pt is stable at this time for d/c, follow up outpatient and will get echo outpatient Plan: ? Patient is on losartan 50 and amlodipine 5 mg, we recommend adding beta- alton after echocardiogram ? Continue keeping magnesium potassium over 2 and 4 respectively to avoid any cardiac arrhythmias ? Echo outpatient #Acute hypoxic respiratory failure - improving #Concern for HCAP #Pulmonary coccidiomycosis #Possible obstructive airway disease/COPD #Lactic acidosis, likely type B-resolved. #Hyperbilirubinemia #Polycythemia #History of FRANKO, does not use CPAP Above managed by primary hospitalist team Patient seen and care discussed with my attending physician, Dr. Char Guevara, PGY-1 Attending Provider Attestation/Addendum I have personally seen and examined the patient separately on the above date of service and discussed the plan of care with the resident. I reviewed the resident Dr. Ramachandran consultation progress note and agree with the resident findings and plan in the note above and have also edited the documentation to reflect my findings and plan. Fracisco Pardo M.D. Interventional Cardiology
--- NOTE | 2024-12-21 13:28 | PC.SS ---
SUPERVISOR [employer]ANT confirmed [facility] staff that Overnight Pulse Oximetry referral has been received. [facility] to contact patient to make arrangements to initiate process for overnight Oximetry at patient's residence.
--- NOTE | 2024-12-21 17:21 | ESDS_ITS ---
<Statement entered by Vida Zapata DO - 12/22/24 08:23> I, Vida Zapata DO, attest that I was physically present for the chicas portions of the service and evaluated the patient with the resident and I reviewed and discussed the case with the resident and agree with the resident's findings and plans of care as documented above Planned Discharge Date 12/21/24 DS: Providers Provider Date of admission: 12/19/24 14:13 Primary care physician: Jarrell Smith MD Admitting Provider: Veronica Turcios MD Attending Provider on Admission: Vida Zapata DO Consults: 12/20/24 08:16 Consult to Cardiology Stat Comment: Consulting Provider: Fracisco Pardo Attending Provider on DC: Rosalba Martinez MD Discharging Provider: Rosalba Martinez MD DS: Diagnosis Problem List Completed Was Problem List Reviewed/Reconciled?: Yes Hospital Course Hospital Course Hospital course: Mr. Muir is a 69-year-old male with past medical history of hypertension, reactive airway disease, recent diagnosis of valley fever who had presented to [facility] with a chief complaint of shortness of breath. Patient was recently discharged from [facility] after hospitalization for community-acquired pneumonia and valley fever leading to hypoxia that rapidly improved with the use of steroids. Patient went home and was doing fairly well at home but became distressed once again with significant wheezing so came back to the emergency department. Patient was found to be on 4 L via nasal cannula in the emergency department and had a type B lactic acidosis with a mild troponin leak so he was admitted for acute hypoxic respiratory failure secondary to healthcare associated pneumonia and was started on broad- spectrum antibiotics with cefepime and doxycycline. After speaking the patient's infectious disease physician Dr. Lynch patient continued on itraconazole for the management of his valley fever and was given steroids which showed rapid improvement in his respiratory status. Due to patient's slightly elevated cardiac troponins which peaked at 0.131 cardiology was consulted who recommended that the patient be placed on aspirin, atorvastatin and carvedilol to mitigate his coronary risks. Patient had improved rapidly in regards to his hypoxia with the use of steroids and continued therapy for valley fever. A nebulizer was obtained for the patient to take home and to do at home nebulizer treatments. We suspect the patient may have underlying history of reactive airway disease/undiagnosed COPD and thus showed rapid improvement with the use of steroid therapy. Patient was back to room air on discharge and did not qualify for an oxygen tank due to his ability to ambulate without shortness of breath. Cardiology suggested outpatient follow-up to further assess patient's cardiac risk and suggested outpatient follow-up within 1 week. Cardiac echo exam was unable to be obtained prior to discharge and would be done in the outpatient setting with frame table operator Dr. Pardo. Patient was sent home with new medications of aspirin 81 mg once daily, carvedilol 3.125 mg twice daily with meals, atorvastatin 40 mg to be taken at bedtime, and ipratropium/albuterol for nebulization along with a methylprednisolone Dosepak. 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 Plan for discharge discussed with supervising attending Dr. Zapata #Acute hypoxic respiratory failure - improving #Concern for HCAP #Pulmonary coccidiomycosis Patient had respiratory distress, following recent hospital admission, Meets criteria for HCAP, chest x-ray shows bronchitis pattern. Will get chest CT for better imaging, as patient has fairly localized wheezing, localized to the right chest, unusual for obstructive airway disease Follows Dr. Lynch infectious specialist in [place], who started him on itraconazole, as patient was unable to tolerate fluconazole for pulmonary coccidiomycosis and treatment was terminated after 3 months in January 2024., On repeat testing during previous hospitalization, positive serology for coccidiomycosis, was started on itraconazole. Blood cultures negative in 48 hours Aspergillus negative, RSV negative, influenza negative, COVID-negative -Follow-up sputum cultures -Follow-up Legionella antigen -IV cefepime 2 g every 8 hours started 12/18? -IV doxycycline 100 mg every 12 hours started 12/18? -Itraconazole 200 mg twice daily #Type II NSTEMI Noted troponin elevation, likely type II AL, patient denied any active chest pain, trended troponins until peaked. Ordered stat EKG, no acute ST changes, shows sinus tachycardia Reports no chest discomfort , says he felt some chest discomfort while nebulization with budesonide, troponins plateued, will stop further troponin checks as pt is asymtomatic Reports no active chest symptoms, wheezing is improved, Lactic acid normalized following iv fluids and discontinuing nebulizations with albuterol. stable vitals. -Cardiology Dr. Pardo consulted, appreciate recommendations -Keep potassium above 4, magnesium above 2 #Possible obstructive airway disease/COPD Chest x-ray shows hyperinflated lungs, patient denied having a history of COPD or asthma, possible undiagnosed COPD, obstructive versus reactive airway disease. Unfortunately we do not have pulmonary function tests available at this hospital, will continue to manage empirically based on physical exam and clinical sign. Received IV steroid in the emergency room, methylprednisone 125 mg x 1, will reevaluate tomorrow if need for repeat steroids, due to concern for active coccidiomycosis will be cautious given steroids, but patient reports the only time he felt better during the previous healthcare encounters was when he got steroids. ? Will switch DuoNebs to levalbuterol /ipratropium/budesonide, due to concern for type a lactic acidosis ? Spoke to Dr Rutherford, about steroid use, as patient has possible COPD, and iv steroids led to rapid symptomatic improvement, per Dr Rutherford as long as pt is on treatment fro Cocci with itraconazole, short course of steroids is reasonable. will order medrol dose floyd on discharge. #Lactic acidosis, likely type B-resolved. #Hyperbilirubinemia Noted persistently elevated T. bili following starting antifungals, possibly drug adverse event, patient has denied any right upper quadrant abdominal pain, normal ALT AST and alk phos, do not suspect he has any gallbladder disease at the moment. ? Continue to trend liver enzymes #Polycythemia ? Noted polycythemia, on admission hemoglobin 16.1, possibly hemoconcentration due to dehydration vs polycythemia secondary to COPD. ? Will continue to monitor #Hypertension ?Continue home medications amlodipine and losartan ? IV hydralazine 10 mg for SBP more than 170 Case discussed with my senior Dr. Monique PGY-[address] Jodi Schwartz MD PGY-1 Disposition: Med telemetry Fluids: None Feeding: Low-sodium Thrombo prophylaxis: Heparin Gastric Ulcer prophylaxis: None CODE STATUS: Full code Status at Discharge Overall status at discharge: patient is back to baseline Time Spent with Patient Time attestation: Total time spent providing and/or coordinating discharge services: Time spent: Greater than 30 minutes Exam Vital Signs Temp Pulse Resp BP Pulse Ox O2 Del Method O2 Flow Rate 97.9 F 79 20 128/80 97 Room Air 2 12/21/24 11:53 12/21/24 11:53 12/21/24 11:53 12/21/24 11:53 12/21/24 11:53 12/21/24 11:53 12/20/24 06:15 Narrative Exam General: AAOx3, NAD, HEENT: Moist mucous membranes, conjunctiva clear, EOMI, PERRLA, Cardiovascular: S1, S2, radial pulses +2 bilat, RRR Pulmonary: CTAB bilat no cough, no wheezing GI: No tenderness to light or deep palpitation, no guarding, rigidity, rebound tenderness or distension Extremities: No presence of trace or pitting edema in lower extremities bilaterally, dorsalis pedis pulses +2 bilaterally Neuro: AAOx3, no focal motor or sensory deficits in the UE or LE bilat Psych: Good judgement, thought and behavior. Cooperative Discharge Plan Plan Patient Disposition: HOME (Self Care) Patient condition on transfer: Stable Care Plan Goals: Recommend to continue steroids as per Dosepak instructions for next 5 days. Recommend nebulization for wheezing or shortness of breath every 6 hours as needed. Recommend to continue itraconazole twice daily for treatment of coccidiomycosis/valley fever and follow-up with your infectious disease specialist Dr. Rutherford within 2 weeks of discharge from hospital. In case of worsening symptoms, please return to the emergency room. Patient will be sent home on aspirin 81 mg once daily, atorvastatin 40 mg to be taken at bedtime and Coreg 3.125 mg to be taken twice daily with meals for restratification of coronary artery disease. Patient is recommended to follow-up with frame table operator Dr. Nasreen clemente in his office next week Prescriptions/Referrals Prescriptions/Med Rec: New ipratropium-albuterol 0.5 mg-3 mg(2.5 mg base)/3 mL solution for nebulization 3 ml inhalation Q6H PRN (Reason: shortness of breath or wheezing) Qty: 90 0RF methylprednisolone [Medrol (Floyd)] 4 mg tablets,dose pack 4 mg PO QDAY Qty: 21 0RF aspirin 81 mg capsule 81 mg PO QDAY Qty: 30 0RF atorvastatin 40 mg tablet 40 mg PO QPM Qty: 30 0RF carvedilol 3.125 mg tablet 3.125 mg PO BID Qty: 60 0RF Rx Instructions: must administer with a meal/food Continued losartan 50 mg tablet 50 mg PO DAILY Patient Comments: TAKE 1 TABLET BY MOUTH EVERY DAY amlodipine 10 mg tablet 5 mg PO DAILY Patient Comments: TAKE 1 TABLET BY MOUTH EVERY DAY albuterol sulfate 90 mcg/actuation HFA aerosol inhaler 1 inh inhalation QID PRN (Reason: shortness of breath or wheezing) Qty: 8.5 0RF itraconazole 100 mg capsule 200 mg PO BID Qty: 120 1RF Rx Instructions: must administer with a meal/food ergocalciferol (vitamin D2) 25,000 unit Capsule 50,000 unit PO QWEEK Referrals: Fracisco Pardo MD [Physician] - Jarrell Smith MD [Primary Care Provider] - Patient/Caregiver Discharge Instructions Education Materials: Using an Inhaler, Preventing Pneumonia, Treating Pneumonia, Heart Attack Dc Print Language: Persian Stand Alone Forms: Rashmi Award Info., Patient Portal Info Letter, Work/Release Restrictions Discharge Order Discharge Orders: Discharge (Routine); Ordered 12/21/24 Ordered By: Rosalba Martinez Quality Discharge Quality Measures none
== END 2024-12-21 12:34 | disposition home or self-care (01) | DRG 193 ==
LOC: SERX 14:05 → SERHOLD 12-19 08:57 → S3NX 12-19 19:07
PROVIDERS: Student in an Organized Health Care Education/Training Program; Admitting Provider Internal Medicine; Emergency Provider Emergency Medicine; PCP Family Medicine; Visit Provider Internal Medicine
DX: J18.9 Pneumonia, unspecified organism (principal); I21.A1 Myocardial infarction type 2; J96.01 Acute respiratory failure with hypoxia; E87.20 Acidosis, unspecified; J44.0 Chronic obstructive pulmonary disease with (acute) lower respiratory infection; B38.2 Pulmonary coccidioidomycosis, unspecified; R17 Unspecified jaundice; I10 Essential (primary) hypertension; D75.1 Secondary polycythemia; Y95 Nosocomial condition; Z79.899 Other long term (current) drug therapy; Z79.82 Long term (current) use of aspirin; Z88.5 Allergy status to narcotic agent
CPT/HCPCS: 36415; 36600; 71045; 71260; 80048; 80053; 80061; 80069; 80076; 81001; 82803; 83605; 83735; 83880; 84100; 84145; 84439; 84443; 84484; 85025; 85610; 87040; 87081; 87205; 87400; 87449; 87502; 87634; 87811; 93005; 93225; 94640; 94644; 94664; 96365; 96366; 96367; 96368; 96375; 99291; A4649; G0378; J0692; J1643; J2919; J3490; J7030; J7040; J7050; J7120; Q9967; A9270

== ENCOUNTER → 2025-01-12 | Outpatient (CLI) | payer MEDICARE, BC, SELFPAY ==
[2025-01-12 12:00] LABS: Coccid Serology, CF (UCD)* See Sep Rpt; Misc Send Out* See Sep Rpt
[2025-01-12 12:55] LABS: Basophils % (Auto) 1 % (0-2.5); Eosinophils # (Auto) 1.1 Thou/mm3 (0.0-0.5); Eosinophils % (Auto) 13 % (0-10); Hematocrit 42.1 % (41.0-53.0); Hemoglobin 14.4 g/dL (13.5-16.0); Immature Granulocytes % (Auto) 1 % (0-0); Immature Granulocytes Auto 0.04 Thou/mm3 (0.00-0.00); Lymphocytes # (Auto) 1.4 Thou/mm3 (1.0-4.8); Lymphocytes % (Auto) 16 % (10-50); Mean Corpuscular HGB Conc 34.2 g/dl (31.0-37.0); Mean Corpuscular Hemoglobin 30.6 pg (25.0-35.0); Mean Corpuscular Volume 89 fL (80-100); Monocytes # (Auto) 0.8 Thou/mm3 (0.0-0.8); Monocytes % (Auto) 10 % (0-12); Neutrophils # (Auto) 5.2 Thou/mm3 (1.8-7.7); Neutrophils % (Auto) 60 % (37-80); Nucleated Red Blood Cell % 0 /100 WBC (0); Platelet Count 185 Thou/mm3 (140-440); Red Blood Count 4.71 Miln/mm3 (4.50-5.90); White Blood Count 8.7 Thou/mm3 (3.8-10.6)
[2025-01-12 13:09] LABS: Alanine Aminotransferase 19 U/L (10-49); Albumin, Serum 3.6 gm/dL (3.4-4.8); Alkaline Phosphatase 77 U/L (46-116); Aspartate Amino Transferase 14 U/L (0-34); Bilirubin,Direct 0.6 mg/dL (0.0-0.3); Bilirubin,Total 1.7 mg/dL (0.3-1.2); Total Protein 5.7 gm/dL (5.7-8.2)
[2025-01-17 13:48] LABS: A. tenuis (M6) IgE <0.10 kU/L; C. herbarum (M2) IgE <0.10 kU/L; Cat Dander (e1) IgE <0.10 kU/L; Dog Dander (E5) IgE <0.10 kU/L; Elm (T8) IgE 0.71 kU/L; House Dust-HS (H2) IgE <0.10 kU/L; June Grass (G8) IgE <0.10 kU/L; Russian Thistle (W11) IgE 1.14 kU/L
[2025-01-18 06:58] LABS: Cat Dander (e1) Class 0; Dog Dander (E5) Class 0
[2025-01-18 06:59] LABS: A. tenuis (M6) Class 0; C. herbarum (M2) Class 0; Elm (T8) Class 2; House Dust-HS (H2) Class 0; June Grass (G8) Class 0; Russian Thistle (W11) Class 2
== END | disposition home or self-care (01) ==
PROVIDERS: PCP Family Medicine
DX: B38.2 Pulmonary coccidioidomycosis, unspecified (principal); D70.9 Neutropenia, unspecified; J98.01 Acute bronchospasm
CPT/HCPCS: 36415; 80076; 85025; 86003; 86171

== ENCOUNTER → 2025-10-05 | Outpatient (CLI) | payer MEDICARE, BC, SELFPAY ==
[2025-10-05 17:17] LABS: Basophils # (Auto) 0.1 Thou/mm3 (0.0-0.2); Basophils % (Auto) 1 % (0-2.5); Eosinophils # (Auto) 0.2 Thou/mm3 (0.0-0.5); Eosinophils % (Auto) 4 % (0-10); Hematocrit 42.2 % (41.0-53.0); Hemoglobin 14.7 g/dL (13.5-16.0); Immature Granulocytes Auto 0.01 Thou/mm3 (0.00-0.00); Lymphocytes # (Auto) 1.3 Thou/mm3 (1.0-4.8); Lymphocytes % (Auto) 21 % (10-50); Mean Corpuscular HGB Conc 34.8 g/dl (31.0-37.0); Mean Corpuscular Hemoglobin 32.2 pg (25.0-35.0); Mean Corpuscular Volume 93 fL (80-100); Monocytes # (Auto) 0.6 Thou/mm3 (0.0-0.8); Monocytes % (Auto) 10 % (0-12); Neutrophils # (Auto) 4.1 Thou/mm3 (1.8-7.7); Neutrophils % (Auto) 65 % (37-80); Nucleated Red Blood Cell # 0.00 Thou/mm3 (0.00-0.00); Nucleated Red Blood Cell % 0 /100 WBC (0); Platelet Count 182 Thou/mm3 (140-440); RDW Standard Deviation 40.0 fL (35.1-43.9); Red Blood Count 4.56 Miln/mm3 (4.50-5.90); White Blood Count 6.4 Thou/mm3 (3.8-10.6)
[2025-10-05 17:26] LABS: Alanine Aminotransferase 71 U/L (10-49); Albumin, Serum 4.1 gm/dL (3.4-4.8); Alkaline Phosphatase 93 U/L (46-116); Anion Gap 6 (7-16); Aspartate Amino Transferase 45 U/L (0-34); BUN/Creatinine Ratio 11 Ratio (12-20); Bilirubin,Direct 0.2 mg/dL (0.0-0.3); Bilirubin,Total 0.6 mg/dL (0.3-1.2); Blood Urea Nitrogen 15 mg/dL (9-23); C-Reactive Protein < 0.5 mg/dL (0.0-0.9); Calcium 9.1 mg/dL (8.3-10.6); Carbon Dioxide 29.7 mMol/L (20.0-31.0); Chloride 108 mMol/L (98-107); Creatinine (Component) 1.4 mg/dL (0.6-1.3); Glucose 91 mg/dL (74-106); Magnesium 1.9 mg/dL (1.6-2.6); Osmolality,Calculated 287 (275-295); Phosphorous 3.1 mg/dL (2.4-5.1); Potassium 4.6 mMol/L (3.4-5.1); Sodium 144 mMol/L (136-145); Total Protein 6.2 gm/dL (5.7-8.2); eGFR 54 See Note
[2025-10-05 17:49] LABS: Sed Rate (ESR) 3 mm/hr (0-20)
[2025-10-06 11:47] LABS: Cocci Serology, IgM Negative (Negative)
[2025-10-07 14:06] LABS: Cocci Serology, IgG Positive (Negative)
[2025-10-07 14:08] LABS: Cocid Sro, CF/ID (UCD) NO CHG* See Sep Rpt
[2025-10-10 06:24] LABS: IgE, Serum* 393 kU/L (114 OR LESS)
== END | disposition home or self-care (01) ==
LOC: COPL 16:06
PROVIDERS: PCP Family Medicine; Referring Provider Internal Medicine; Visit Provider Internal Medicine Pulmonary Disease
DX: B38.9 Coccidioidomycosis, unspecified (principal); D72.10 Eosinophilia, unspecified; R76.89 Other specified abnormal immunological findings in serum; R91.1 Solitary pulmonary nodule; J45.909 Unspecified asthma, uncomplicated
CPT/HCPCS: 36415; 80048; 80076; 82785; 83735; 84100; 85025; 85652; 86140; 86331; 86635

== ENCOUNTER → 2025-10-09 | Outpatient (CLI) | payer MEDICARE, BC, SELFPAY ==
[2025-10-09 16:13] LABS: Misc Send Out* See Sep Rpt
== END | disposition home or self-care (01) ==
LOC: COPL 15:56
PROVIDERS: PCP Family Medicine; Referring Provider Internal Medicine Pulmonary Disease; Visit Provider Internal Medicine Pulmonary Disease
DX: B38.9 Coccidioidomycosis, unspecified (principal); D72.10 Eosinophilia, unspecified; R76.89 Other specified abnormal immunological findings in serum; R91.1 Solitary pulmonary nodule; B38.2 Pulmonary coccidioidomycosis, unspecified; J45.909 Unspecified asthma, uncomplicated
CPT/HCPCS: 80299